=== PATIENT | male | born 1955 | race Caucasian/White ===

== ENCOUNTER 2017-09-12 10:32 | Outpatient (CLI) | payer OTHER | END 2017-09-12 10:33 | disposition home or self-care (01) | LOC: BICRAD 10:32 | PROVIDERS: ATTEND Family Medicine | DX: R05 Cough (principal); R91.8 Other nonspecific abnormal finding of lung field | CPT/HCPCS: 71046 ==

== ENCOUNTER 2017-11-22 11:59 | Outpatient (CLI) | payer OTHER | END 2017-11-22 12:00 | disposition home or self-care (01) | LOC: LABBT 11:59 | PROVIDERS: ATTEND Internal Medicine | DX: Z01.818 Encounter for other preprocedural examination (principal); R91.8 Other nonspecific abnormal finding of lung field ==

== ENCOUNTER 2017-11-23 07:00 | Day surgery (SDC) | payer OTHER ==
[2017-11-22 12:14] VITALS: BMI 22.8
[2017-11-23] MEDS ORDERED: Lidocaine 1% (PF) 30 ML VIAL ONE (07:15)
[2017-11-23] MEDS ORDERED: Benzocaine 20% Spray 60 ML CAN ONE (07:15)
--- NOTE | 2017-11-23 08:03 | HP ---
DATE OF CONSULTATION: 11/22/2017 SERVICE: Pulmonary Medicine. REFERRING PROVIDER: Stefano Snyder D.O. REASON FOR CONSULTATION: Pulmonary mass. 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 He has been having some increasing clubbing, and coughing that has come and gone. He also notes hemoptysis, which was present for about a week and a half, but then resolved. During one of these spells, he sought help from Dr. Snyder. He does not like doing a lot of studies or interventions because he does not have any good insurance. As such, everything is out of pocket. Ultimately, he was convinced to have a chest x-ray, which demonstrated an abnormality. He was prompted to do a CT scan, but put it off because he felt better in mid- September. Ultimately, he was finally convinced to undergo a CT evaluation. This demonstrated a large right upper lobe pulmonary mass. The patient is currently in his usual state of health and denies having any current fevers, chills, nausea or vomiting. He has a little bit of a cough. His weight is stable and he denies having any B symptoms like night sweats. PAST MEDICAL HISTORY: 1. Deviated septum. 2. Pulmonary mass. PAST SURGICAL HISTORY: Knee surgery, bilateral. SOCIAL HISTORY: He drinks twice per week. He has a 76-vpvw-audy history of smoking, but quit recently. He denies any street drugs. He has no exposure to chemicals, dust, asbestos, or tuberculosis outside of his work. 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 FAMILY HISTORY: Noncontributory. ALLERGIES: No drug allergies. MEDICATIONS: Ibuprofen 400 mg p.o. q.6 hours as needed. REVIEW OF SYSTEMS: General, head, ears, eyes, nose, and throat, cardiovascular , respiratory, GI, , musculoskeletal, neurologic, and skin is negative except as mentioned in the HPI. PHYSICAL EXAMINATION: VITAL SIGNS: Afebrile, pulse 87, respirations 14, saturation 98% on room air. GENERAL: The patient is awake and alert. He is in no apparent distress. HEENT: Normocephalic, atraumatic. Sclerae are white, conjunctivae pink. Oral mucosa is moist without lesions. LUNGS: Decent air entry with no prolonged expiratory phase, wheezing, rhonchi, or crackles. HEART: Normal rate, regular. ABDOMEN: Soft, nontender, nondistended. Bowel sounds are positive. MUSCULOSKELETAL: No cyanosis or clubbing. There is no pitting in the bilateral lower extremities. NEUROLOGIC: Grossly nonfocal. LABORATORY DATA: Platelets 562,000. WBC 11.0. Hemoglobin 13.7 and down trending from 16.4. Liver function studies were essentially unremarkable, except for marginally elevated alkaline phosphatase at 166. IMAGING: CT of the chest at the [facility] demonstrates a right upper lobe pulmonary mass with obliteration of the right upper lobe bronchus. There is some atelectasis in the right upper lobe, but the majority of this area looks like it is the mass. This growth appears to respect boundaries of the minor fissure, the major fissure, and the chest wall. I do not see any clear erosion into the chest structures. ASSESSMENT: 1. Pulmonary mass. 2. History of tobacco abuse. PLAN: We will proceed with bronchoscopy tomorrow morning. I will have him hold his ibuprofen. We will do it under general anesthesia. I will prepare for a brush wash, and biopsy. I will have him return to clinic Tuesday or Tuesday of next week so that we can discuss the pathology, microbiology, and plan moving forward. 60 minutes have been devoted to this patient in various activities including interacting with the patient in the clinic or coordinating care with the care team. I personally reviewed all imaging studies and laboratory data noted within this document. VINCE
[2017-11-23] MEDS ORDERED: Fentanyl 100 MCG/2 ML VIAL ONE (09:16)
[2017-11-23] MEDS ORDERED: EPINEPHrine 1 MG/ML AMP ONE (10:02)
[2017-11-23] MEDS ORDERED: PHENYLEPHRINE-NS 100 MCG/ML 10 ML SYRINGE ONE (15:19)
[2017-11-23] MEDS ORDERED: Succinylcholine Chloride 20 MG/ML 10 ml SYRINGE FS ONE (15:19)
[2017-11-23] MEDS ORDERED: Lidocaine 1% PF 5 ML VIAL ONE (15:19)
[2017-11-23] MEDS ORDERED: Dexamethasone 20 MG/5 ML VIAL ONE (15:19)
[2017-11-23] MEDS ORDERED: PROPOFOL 200 MG/20 ML VIAL ONE (15:19)
--- NOTE | 2017-11-23 18:22 | OP ---
DATE OF SERVICE: 11/23/2017 SERVICE: Pulmonary Medicine. PROCEDURE: Fiberoptic bronchoscopy with: 1. Visual airway inspection. 2. Endobronchial brush of the right upper lobe. 3. Bronchoalveolar lavage from the right upper lobe. 4. Transbronchial biopsies of the right upper lobe. PREOPERATIVE DIAGNOSIS: Pulmonary mass. POSTPROCEDURE DIAGNOSIS: Pulmonary mass. PROCEDURE PILOT: Dudley Paulino M.D. MEDICATIONS USED: For list of medications, please refer to anesthesia documentation. PREANESTHESIA ASSESSMENT: H and P had been performed. The patient's medications and allergies were reviewed. Informed consent was obtained after discussing risks, benefits, and rationale for performi ng the procedure as well as alternative options. DESCRIPTION OF PROCEDURE: A timeout was performed, identifying the correct procedure and patient wit h name and date of . A diagnostic fiberoptic bronchoscope was introduced through the 8.0 endotr acheal tube. The bronchoscope was advanced into the trachea where a tracheobronchial tree inspection was carried out with clear identification of the right middle lobe, right lower lobe, left upper lob e, lingula, and left lower lobe. The right upper lobe was completely obliterated by a fungating whit e endobronchial lesion. Whatever was behind it was creating some extrinsic compression of the right bronchus intermedius and right middle lobe. That being said, there was no other endobronchial diseas e that was identified. Anatomy was otherwise normal to the segmental level. Bronchioalveolar lavage was obtained from the right upper lobe. Endobronchial brushing and endobronchial biopsies were obta ined from the right upper lobe under direct observation. Hemostasis was verified. The bronchoscope was subsequently removed from the patient. FINDINGS: 1. White endobronchial mass was fungating from the origin of the right upper lobe with extrinsic com pression of right bronchus intermedius, and right middle lobe. 2. Secretions were minimal and nonpurulent SPECIMENS OBTAINED: Pathology on BAL, brush, and endobronchial biopsies. COMPLICATIONS: None. ESTIMATED BLOOD LOSS: 2 mL. FLUOROSCOPY TIME: None. DISPOSITION: The patient will be discharged home with post-procedure instructions. He will return t o clinic next Tuesday as previously directed.
--- NOTE | 2017-11-24 06:23 | EKG ---
Test Reason : PREOP Blood Pressure : / mmHG Vent. Rate : 080 BPM Atrial Rate : 080 BPM P-R Int : 142 ms QRS Dur : 088 ms QT Int : 368 ms P-R-T Axes : 063 065 050 degrees QTc Int : 424 ms Normal sinus rhythm Normal ECG No previous ECGs available Confirmed by EDUARD MAURO ([id number]) on 11/24/2017 6:10:48 AM Referred By: DONNA Confirmed By:EDUARD MAURO
== END 2017-11-23 12:32 | disposition home or self-care (01) ==
LOC: SDC 07:00
PROVIDERS: ATTEND Internal Medicine
PROC: 0B9C8ZX Drainage of Right Upper Lung Lobe, Via Natural or Artificial Opening Endoscopic, Diagnostic (ICD-10-PCS; principal; 2017-11-23)
PROC: 0BDC8ZX Extraction of Right Upper Lung Lobe, Via Natural or Artificial Opening Endoscopic, Diagnostic (ICD-10-PCS; principal; 2017-11-23)
DX: C34.11 Malignant neoplasm of upper lobe, right bronchus or lung (principal); J34.2 Deviated nasal septum; Z87.891 Personal history of nicotine dependence
CPT/HCPCS: 88112; 88305; 88312; 88313; 88341; 88342; 93005; 93010; J0171; J1100; J2001; J2704; J3010; J7620

== ENCOUNTER 2017-12-20 12:45 | Outpatient (CLI) | payer OTHER ==
--- NOTE | 2017-12-20 17:05 | PET ---
PET WITH CT FROM SKULL TO MID THIGH 12/20/17 INDICATION: History of lung cancer. Initial staging. RADIOPHARMACEUTICAL: 12.32 millicuries of F18 FDG IV. TECHNIQUE: PET CT images were obtained from the skull to mid thigh following radiotracer administration. The CT images were obtained for attenuation correction purposes only. No comparisons are available. FINDINGS: The biodistribution for the examination appears acceptable. HEAD AND NECK: No hypermetabolic lymphadenopathy or mass is identified within the head and neck region. CHEST: There is complete opacification of the right upper lobe. There is an 11.2 x 7.9 x 10 cm hypermetaboli c mass within the right upper lobe consolidation with a peak SUV uptake of 26 and a mean uptake of 20 .36. There is additional focus of mild hypermetabolic activity involving the anterior segment of the atelectatic right upper lobe with a peak uptake of 4.67 and 2.69 which may reflect sequela of postobs tructive pneumonia. No hypermetabolic mediastinal or axillary lymphadenopathy is evident. ABDOMEN AND PELVIS: No hypermetabolic mass or lymphadenopathy is present. There is nonspecific olivier mesentery within the central mesenteric root. There are layered gallstones within the gallbladder. There is scattered div erticula involving the colon. SKIN AND OSSEOUS STRUCTURES: No hypermetabolic skin or osseous lesion is identified. IMPRESSION: 1. Large abnormal hypermetabolic mass involving the right upper lobe suspicious for malignancy c ausing postobstructive atelectasis and/or pneumonia of the right upper lobe. Focus of hypermetabolic activity is seen within the atelectatic anterior segment of the right upper lobe may reflect postobst ructive pneumonia versus poorly seen metastatic lesion within the anterior segment of the right upper lobe. 2. No hypermetabolic lymphadenopathy seen within the mediastinum, supraclavicular or axillary re gions. 3. No evidence of hypermetabolic metastatic disease within the abdomen, pelvis, skin or osseous structures. 4. Emphysema. 5. Cholelithiasis. 6. Colonic diverticulosis. 7. Mild specific central olivier mesentery. POS: [facility]
== END 2017-12-20 12:46 | disposition home or self-care (01) ==
LOC: PET 12:45
PROVIDERS: ATTEND Internal Medicine
DX: R91.1 Solitary pulmonary nodule (principal); J95.89 Other postprocedural complications and disorders of respiratory system, not elsewhere classified; J98.11 Atelectasis; J43.9 Emphysema, unspecified
CPT/HCPCS: 78815; A9552

== ENCOUNTER → 2018-03-10 | Day surgery (SDC) | payer OTHER ==
--- NOTE | 2018-03-10 09:01 | OP ---
DATE OF PROCEDURE: 03/10/2018 SURGEO: Dr. Bucky Keita Mr. Marc is a 62-year-old gentleman of Dr. Paulino's. He was sent to the ER for a thoracentesis. PROCEDURE IN DETAIL: After informed consent from the patient, the right posterior thorax was cleaned with chlorhexidine, 1% Xylocaine infiltrated initially in the tenth intercostal space in the midscap ular area and the pleural cavity was entered with an inch and half needle, although no pleural effusi on noted. Thereafter, the 9th intercostal space was infiltrated in the midscapular, this time 20 mL of bloody effusion was removed. Additional fluid was obtained, slightly more laterally, 1% lidocaine infiltrated again in the ninth intercostal space in the mid scapular area additional 20 mL was remov ed. Thereafter, an 8-Japanese catheter was inserted and a total of 250 mL of additional fluid was skip shalini. Fluid will be sent for cytology. Fluid was clearly bloody, probably an exudate, probably secon meghna to metastatic cancer. BRIEF DISCHARGE SUMMARY: The patient tolerated the procedure well. Chest x-ray pending. His vital signs are stable. He will be discharged home to be followed by Dr. Paulino and his oncolog ist.
[2018-03-10 09:20] LABS: Pleural Fluid, Protein 3.5 g/dL
[2018-03-10 09:35] LABS: BF Color Red; Body Fluid Source THORACENTESIS FLD; Clarity Cloudy/Turbid (Clear); Tube # 1
[2018-03-10 09:36] LABS: RBC Background Count 0.001; WBC/NonHematic-Auto 6010 /cumm
[2018-03-10 09:37] LABS: RBC Count-Automated 133000 /cumm
--- NOTE | 2018-03-10 11:07 | RAD ---
CHEST ONE VIEW: HISTORY: Thoracentesis. COMPARISON: PET CT from 12/20/2017. FINDINGS: Large right layering pleural effusion. There is a large right-sided lung mass. IMPRESSION: 1. Large right pleural effusion, 2. Underlying lung mass. POS: [facility]
[2018-03-10 12:18] LABS: BF Segmented Neutrophils 31 %; Cell Count Non Hematic 35 %; Lymphocytes 33 %
== END ==
LOC: SDC 07:09
PROVIDERS: ATTEND Internal Medicine Pulmonary Disease
PROC: 0W993ZZ Drainage of Right Pleural Cavity, Percutaneous Approach (ICD-10-PCS; principal; 2018-03-10)
DX: J90 Pleural effusion, not elsewhere classified (principal)
CPT/HCPCS: 32554; 71045; 82150; 82945; 83615; 84157; 84478; 85060; 87070; 87116; 87205; 87206; 88112; 88305; 89051; J1642

== ENCOUNTER 2018-03-17 09:18 | Outpatient (CLI) | payer OTHER ==
--- NOTE | 2018-03-17 13:21 | CT ---
CT BRAIN WITH AND WITHOUT CONTRAST: HISTORY: A 62-year-old male with lung cancer. Evaluate for brain metastasis. TECHNIQUE: Precontrast scan of brain IV injection iodinated contrast media: Administered Postcontrast scan of brain FINDINGS: The ventricles are normal in size and configuration. There is no midline shift or any other mass eff ect. There is no evidence of acute intracranial hemorrhage, large cortical infarct, or extraaxial fl uid collection. The brown matter /white matter differentiation is maintained. There is no abnormal e nhancement or mass. The calvarium is intact. The tympanomastoid cavities, and the upper portions of the paranasal sinuses included in these images, are grossly clear. IMPRESSION: Normal. maria ines [] POS: [facility]
--- NOTE | 2018-03-17 14:44 | CT ---
CT THORAX WITH CONTRAST: CT ABDOMEN WITH CONTRAST: 03/17/2018 HISTORY: A 62-year-old male for lung cancer staging. ICD-10: I62.3/C34.11 Malignant plasm of upper lobe, right bronchus or lung. COMPARISON: CT chest with contrast of 11/08/2017 from [facility], and the attenuation correc tion CT for the PET scan of 12/20/2017. TECHNIQUE: IV iodinated contrast media: Isovue-370 100 mL. Single phase scan from the thoracic inlet through t he iliac wings. Coronal reconstructions. FINDINGS: Whereas previously there was total atelectasis of the right upper lobe, now there is complete opacifi cation of the entire right lung. The majority of the volume of the right upper lobe is occupied by w hat appears to be a very large mass that has heterogeneous enhancement, measuring approximately 10 x 8.5 x 12.5 cm. There are areas of low attenuation at the posterior and superior aspects of this, con sistent with necrosis. There is also another new finding of a very large number of tiny and small po ckets of gas throughout the upper portion of this lesion, especially apically, which represent cavita tions. Whereas previously the right lower lobe and right middle lobe were aerated, those segments of the joanna g are now also totally collapsed. The right middle lobe is diffusely low in attenuation, whereas the right lower lobe has moderately high attenuation, which may represent enhancement, except for a few tiny pockets of gas. There is a new small right pleural effusion that extends from the base to the a pex. The total atelectasis of the right lung results in a greater degree of elevation of the right h emidiaphragm now than before. The mass that was previously obstructing the origin of the right upper lobe bronchus has now invaded the right mainstem bronchus, up to its proximal portion, near the jamil na, but it does not quite reach the jesus. The single, round, anterior, upper mediastinal lymph nod e, located between the anterior edges of the ascending aorta and the superior vena cava, in the preva scular space, has not significantly changed in size, it was not hypermetabolic, and may be benign. T here is shift of the trachea and heart to the right due to the total right lung atelectasis. No thor acic aortic aneurysm or dissection. No cardiomegaly, pericardial effusion, or left-sided pleural eff usion. The left lung is essentially clear. there is a new finding of an approximately 1.5 x 2 x 1.5 cm soft tissue density lesion with heterogeneous attenuation, similar to that of the very large righ t lung mass described above, located in the subcarinal region, which could either represent direct ex tension of the lung cancer tumor mass or interval growth of malignant subcarinal lymph node. It cros ses the midline to the left by approximately 1 cm. No destructive osseous lesion is identified. There is at least one calcified gallstone. Liver appears normal, with no evidence of metastasis. Bi lateral kidneys, adrenals, pancreas, and spleen are normal. No evidence of definite pao hepatis, m esenteric, or retroperitoneal lymphadenopathy. Atherosclerotic plaque of the infrarenal abdominal ao rta without aneurysm. Numerous diverticula in the proximal sigmoid colon and throughout the descendi ng colon. No small bowel dilatation. No free fluid identified. The pelvis was not included on the scan. No destructive osseous lesion. IMPRESSION: 1. Right upper lobe lung cancer, which is at least TNM stage T3, N2, M0, overall stage 3A; and possi jes worse. 2. The large right upper lobe tumor mass has apparently become much larger, with extensive areas of necrosis and cavitation. It is uncertain which portions of those cavitations are due to tumor necros is versus any possible superimposed necrotizing pneumonia. Clinical correlation is recommended. 3. The tumor mass now invades almost the entire right mainstem bronchus. 4. Subcarinal malignant 2 cm mass, either malignant lymphadenopathy or direct tumor invasion. 5. Total atelectasis of the right lung. 6. Small right pleural effusion. 7. No evidence of metastatic disease within the abdominal cavity. 8. Cholelithiasis. 9. Distal colonic diverticulosis. AIDAN Daniels POS: [facility]
--- NOTE | 2018-03-17 15:52 | NM ---
NUCLEAR MEDICINE BONE SCAN WHOLE BODY: (SKELETAL SCINTIGRAPHY) Date: 03/17/18 HISTORY: 62-year-old male, staging for lung cancer (malignant neoplasm of right upper lobe or bronchus). TECHNIQUE: IV injection of [id number]: 31.3 mCi 3 hour delayed whole body skeletal scintigraphy in anterior and posterior views. FINDINGS: There are no foci of asymmetrically increased uptake that are particularly suspicious for bone metast ases. IMPRESSION: No compelling evidence of skeletal metastasis. AIDAN Daniels POS: [facility]
== END 2018-03-17 09:19 | disposition home or self-care (01) ==
LOC: CT 09:18
PROVIDERS: ATTEND Internal Medicine Medical Oncology
DX: C34.11 Malignant neoplasm of upper lobe, right bronchus or lung (principal); J98.11 Atelectasis; J90 Pleural effusion, not elsewhere classified; K80.20 Calculus of gallbladder without cholecystitis without obstruction; K57.30 Diverticulosis of large intestine without perforation or abscess without bleeding
CPT/HCPCS: 70470; 71260; 74160; 78306; A9503

== ENCOUNTER 2018-03-28 09:18 | Day surgery (SDC) | payer OTHER ==
[2018-03-28] MEDS ORDERED: diphenhydrAMINE 50 MG/ML VIAL IVP SCH (10:45)
[2018-03-28] MEDS ORDERED: PALONOSETRON HCL 0.05 MG/ML 5 ML VIAL IVP SCH (10:45)
[2018-03-28] MEDS ORDERED: Famotidine/PF 20 mg/2ml Vial SLOW IVP SCH (10:45)
[2018-03-28] MEDS ORDERED: Dexamethasone 10 MG/ML VIAL SLOW IVP SCH (10:45)
[2018-03-28] MEDS ORDERED: CARBOPLATIN IVPB SCH (11:00)
[2018-03-28] MEDS ORDERED: PACLitaxel 310 MG in Sodium Chloride 0.9% 500 ML IVPB SCH (11:00)
[2018-03-28] MEDS ORDERED: SODIUM CHLORIDE 0.9% IVPB SCH (11:00)
[2018-03-28 11:17] VITALS: BP 113/66; TEMP 97.8
== END 2018-03-28 16:15 | disposition home or self-care (01) ==
LOC: ONC/OP 09:18
PROVIDERS: ATTEND Internal Medicine Medical Oncology
DX: Z51.11 Encounter for antineoplastic chemotherapy (principal); C34.11 Malignant neoplasm of upper lobe, right bronchus or lung; J98.11 Atelectasis; J90 Pleural effusion, not elsewhere classified; Z87.891 Personal history of nicotine dependence
CPT/HCPCS: 96375; 96413; 96415; 96417; J1100; J1200; J2469; J7050; J9045; J9267; S0028

== ENCOUNTER 2018-04-05 16:42 | Inpatient (IN) | payer OTHER, SELFPAY ==
[2018-04-05 17:24] LABS: #Basophils 0.1 thou/uL (0.0-0.2); #Eosinphils 0.1 thou/uL (0.0-0.7); #Lymphocytes 0.9 thou/uL (1.20-3.40); #Monocytes 1.4 thou/uL (0.11-0.59); #Neutrophils 12.1 thou/uL (1.40-6.50); %Basophils 0.4 % (0.0-1.0); %Eosinophils 0.4 % (0.0-10.0); %Lymphocytes 6.1 % (21.0-51.0); %Monocytes 9.8 % (0.0-10.0); %Neutrophils 83.3 % (42.0-75.0); Hemoglobin 12.2 g/dL (14.0-18.0); Mean Corpuscular Volume 82.5 fL (78.0-98.0); Platelet Count 583 thou/uL (130-400); RBC Distribution Width 12.1 % (11.5-14.5); Red Blood Cell (RBC) Count 4.35 mill/uL (4.70-6.10); White Blood Cell (WBC) Count 14.5 thou/uL (4.8-10.8)
--- NOTE | 2018-04-05 17:26 | RAD ---
CHEST ONE VIEW: 04/05/18 HISTORY: Cough. Comparison radiograph 03/10/18. FINDINGS: Mild interval improvement right hemithorax opacities. Small layering pleural effusion. Left lung is r elatively clear. IMPRESSION: 1. Improving right lung pneumonia. 2. Likely underlying right sided lung mass. POS: [facility]
[2018-04-05 17:45] LABS: ALT (SGPT) 42 U/L (8-55); AST (SGOT) 18 U/L (5-34); Albumin 3.7 g/dL (3.4-4.8); Alkaline Phosphatase 216 U/L (40-150); Anion Gap 14 mmol/L (10-20); BUN (Urea Nitrogen) 14 mg/dL (8.4-25.7); Bilirubin, Total 0.6 mg/dL (0.2-1.2); Calc. Creatinine Clearance 0 mL/min (70-130); Calcium 9.2 mg/dL (7.8-10.44); Carbon Dioxide 23 mmol/L (23-31); Chloride 101 mmol/L (98-107); Estimated GFR-MDRD 73; Globulin 3.5 g/dL (2.4-3.5); Glucose 144 mg/dL (80-115); Potassium 3.9 mmol/L (3.5-5.1); Protein, Total 7.2 g/dL (5.8-8.1); Sodium 134 mmol/L (136-145)
[2018-04-05] MEDS ORDERED: Cefepime 2 GM VIAL ONE (18:51)
[2018-04-05 19:00] LABS: Bilirubin Small (Negative); Blood, Urine Negative (Negative); Clarity CLOUDY (Clear); Glucose, Urine (Dipstick) Negative (Negative); Leukocyte Negative (Negative); Nitrite Negative (Negative); Protein, Urine (Dipstick) Negative (Neg-Trace); Specific Gravity, Urine 1.023 (1.002-1.036); pH, Urine 5.5 (5.0-9.0)
[2018-04-05] MEDS ORDERED: traMADol HCl 50 MG TAB PO PRN (21:38)
[2018-04-05] MEDS ORDERED: Mag-Al 1200 mg/1200 mg/30 ML UDCUP PO PRN (21:38)
[2018-04-05] MEDS ORDERED: Lorazepam 1 MG TAB PO PRN (21:38)
[2018-04-05] MEDS ORDERED: Senokot 8.6 MG TAB PO PRN ×2 (21:38)
[2018-04-05] MEDS ORDERED: hydrALAZINE 20 MG/ML VIAL SLOW IVP PRN (21:38)
[2018-04-05] MEDS ORDERED: cloNIDine 0.1 MG TAB PO PRN (21:38)
[2018-04-05] MEDS ORDERED: Benzonatate 100 MG CAP PO PRN (21:38)
[2018-04-05] MEDS ORDERED: Calcium Carbonate 500 MG ChewTAB PO PRN (21:38)
[2018-04-05] MEDS ORDERED: Nitroglycerin 0.4 MG TAB (25 Tab Bottle) SL PRN (21:38)
[2018-04-05] MEDS ORDERED: Bisacodyl 5 MG TAB PO PRN ×2 (21:38)
[2018-04-05] MEDS ORDERED: Acetaminophen 325 MG TAB PO PRN (21:38)
[2018-04-05] MEDS ORDERED: Loratadine 10 MG TAB PO PRN (21:38)
[2018-04-05] MEDS ORDERED: Diabetic Tussin 200 MG/10 ML UDCUP PO PRN (21:38)
[2018-04-05] MEDS: Sodium Chloride 0.9% 1,000 ML IV SCH (23:32)
[2018-04-05 23:49] VITALS: BMI 22.9
--- NOTE | 2018-04-06 03:10 | HP ---
DATE OF ADMISSION: 04/05/2018 Please note that the patient was seen prior to midnight. PRIMARY CARE PHYSICIAN: Dr. Stefano Snyder. PRIMARY QA TEST LEAD: Dr. Paulino. PRIMARY ONCOLOGIST: Dr. Candelario. CHIEF COMPLAINT: Cough and fever. HISTORY OF PRESENT ILLNESS: Mr. Marc is a very pleasant 62-year-old male with known history of rig ht-sided non-small cell lung cancer who presented to the emergency room with above-mentioned complain t. History is mainly obtained by the patient himself and electronic medical records have been review ed. Mr. Marc reports that he underwent chemotherapy last week on Tuesday and , he started to castañeda ve some pain in both of his legs. He did receive some IV steroids with the chemotherapy, but he did not go home on any oral steroids. He has received some oral antibiotic by Dr. Paulino, but that was prior to him being started on the chemotherapy for similar symptoms. He started to have yellow produ ctive cough about 3-4 days ago, but he has noticed that color change to green since yesterday. He castañeda s also noticed that he sometimes coughs up blood. He started to have a fever since yesterday and thi s morning, he was 101 degrees at home. He has generalized body aches, but the pain is worse in his l egs and he reports that most likely it is coming from his hips because he has been having some diffic ulty walking. Other than that, he denies any abdominal pain, nausea, vomiting, diarrhea. He denies any dysuria, frequency or urgency. He denies any chest pain, orthopnea or PND. Upon presentation to the emergency room, he was hemodynamically stable with a blood pressure of 99/56 , oxygen saturation 95% on room air. He underwent chest x-ray which finds which showed stable findin gs of right-sided pleural effusion and a big mass on the right side which is the known cancer. He wa s given vancomycin and cefepime as well as nebulizer and IV fluids empirically in the ER. The case w as discussed with telegraph office telephone clerk oncologist, Dr. Garcia and he is now being admitted with a presumptive valentina gnosis of pneumonia and sepsis. The patient was last admitted to the hospital on 03/10/2018 under Pulmonary Medicine Services and und erwent a thoracentesis. The pathology for that showed no malignant cells. PAST MEDICAL HISTORY: Nonsmall cell carcinoma of the right lung, status post 1/4 rounds of chemother apy on 03/28/2018. PAST SURGICAL HISTORY: 1. Bilateral arthroscopic knee surgery. 2. Tonsillectomy. PSYCHIATRIC HISTORY: Depression. SOCIAL HISTORY: He has a 10-jpoq-elti history of smoking, but quit within the last 5 months or so. He lives with his girlfriend, has no history of drug or alcohol abuse. CURRENT MEDICATIONS: Tramadol as needed, Zofran as needed. ALLERGIES: No known medication allergies. FAMILY HISTORY: No family history of stroke or cancer. REVIEW OF SYSTEMS: A 12-point review of systems is done. It is negative except for those mentioned in the history and physical. LABORATORY DATA: CBC shows WBCs at 14.5 with neutrophils 83%, hemoglobin 12.2. Serum chemistries: Sodium 134, glucose 144. Lactic acid 1.3, alkaline phosphatase 216. Urinalysis shows small bilirubi n and ketones. Chest x-ray by my review shows extensive atelectasis and opacification of the entire right lung due to underlying right lung mass. Radiologist has compared it to the chest x-ray done on 03/11/2018 and reports that the pneumonia is resolving. A chest CT was done on 03/17/2018 which vee wed extensive opacification of the right lung, and large right upper lobe mass with areas of necrosis and cavitation and invasion of the right main stem bronchus as well. PHYSICAL EXAMINATION: VITAL SIGNS: Most recent vital signs, temperature 98.5, heart rate 89, respirations 16, saturating 1 00% on room air, blood pressure 127/53. GENERAL: No acute distress, awake, alert, oriented x3. The patient is coughing throughout the inter view. Family is at bedside. HEENT: Mucous membrane is moist. No oropharyngeal exudate or erythema. Head is normocephalic, atra umatic. Pupils equal, reactive to light and accommodation. Extraocular movements intact. NECK: Supple without any lymphadenopathy, JVD or bruit. CHEST: Clear to auscultation bilaterally with some decreased sounds at right base without any wheezi ng or crackles. CARDIOVASCULAR: Rate and rhythm is regular without any murmur, rubs or gallops. ABDOMEN: Soft, nontender, nondistended with positive bowel sounds. EXTREMITIES: Free of any cyanosis, clubbing, or edema, no calf tenderness. No joint swelling, eryth ratna or effusions noticed. NEUROLOGIC: Nonfocal. SKIN: Free of any rashes or bruises. I feel warm and dry to touch. PSYCHIATRIC: Normal affect. IMPRESSION AND PLAN: 1. Pneumonia. The patient most likely has post-obstructive pneumonia. Given his immunocompromised state, he will be treated with broad spectrum IV antibiotic to cover Pseudomonas and MRSA. He will b e continued on cefepime and vancomycin for now and we will provide oxygen as needed and nebulizers. We will add Mucinex as well as incentive spirometry. We will request consultation with his Pulmonary Medicine physician, Dr. Paulino for further recommendations. 2. Sepsis, likely secondary to #1. The patient has leukocytosis with left shift as well as evidence of pneumonia. IV fluids and IV antibiotics have been ordered. We will follow the results of the bl ood culture sent in the emergency room and monitor for any electrolyte abnormalities. 3. Lower extremity pain bilaterally. The physical exam is not consistent with possibility of DVT; h owever, given the fact that he has a carcinoma, we will check Doppler ultrasound bilaterally to rule out the same. 4. Nonsmall cell carcinoma of the lung. The patient will continue treatment per Oncology services. We will request the input by the patient remains in-house as well. 5. Deep venous thrombosis and gastrointestinal prophylaxis. 6. CODE STATUS: FULL CODE. Discussed with the patient and his daughter present in the room. DISPOSITION: Mr. Marc is currently being admitted for pneumonia, likely post-obstructive in nature and sepsis. Estimated length of stay at this time is at least 2-3 midnights. Further management wi ll depend upon his clinical course.
[2018-04-06 04:14] LABS: #Eosinphils 0.3 thou/uL (0.0-0.7); #Lymphocytes 1.1 thou/uL (1.20-3.40); #Monocytes 1.3 thou/uL (0.11-0.59); #Neutrophils 8.3 thou/uL (1.40-6.50); %Basophils 0.4 % (0.0-1.0); %Eosinophils 2.3 % (0.0-10.0); %Lymphocytes 9.7 % (21.0-51.0); %Monocytes 11.6 % (0.0-10.0); Hemoglobin 10.6 g/dL (14.0-18.0); Mean Corpuscular HGB CONC 33.5 g/dL (32.0-36.0); Mean Corpuscular Volume 83.4 fL (78.0-98.0); Mean Platelet Volume 6.2 fL (7.4-10.4); Platelet Count 525 thou/uL (130-400); RBC Distribution Width 12.2 % (11.5-14.5); Red Blood Cell (RBC) Count 3.79 mill/uL (4.70-6.10); White Blood Cell (WBC) Count 10.9 thou/uL (4.8-10.8)
[2018-04-06 04:42] LABS: Anion Gap 11 mmol/L (10-20); BUN (Urea Nitrogen) 11 mg/dL (8.4-25.7); Calc. Creatinine Clearance 94 mL/min (70-130); Calcium 8.5 mg/dL (7.8-10.44); Carbon Dioxide 23 mmol/L (23-31); Chloride 107 mmol/L (98-107); Estimated GFR-MDRD Greater than 90; Glucose 137 mg/dL (80-115); Potassium 3.5 mmol/L (3.5-5.1); Sodium 137 mmol/L (136-145)
[2018-04-06] MEDS: Cefepime 2 GM in Sodium Chloride 0.9% 100 ML IVPB SCH ×3 (05:00→20:01)
[2018-04-06] MEDS: Ondansetron HCl/PF 4 MG/2 ML Vial IVP PRN ×2 (06:45→14:41)
[2018-04-06] MEDS: HYDROcodone/Acetaminophen 5/325 mg Tablet PO PRN ×4 (06:48→23:56)
[2018-04-06] MEDS ORDERED: Vancomycin HCl 1 GM in Premix Bag 1 BAG IVPB SCH (09:00)
[2018-04-06] MEDS: Vancomycin HCl 1.25 GM in Sodium Chloride 0.9% 250 ML 250 ML IVPB SCH ×2 (09:13→20:05)
[2018-04-06] MEDS: Enoxaparin Sodium 40 MG/0.4 ML SYRINGE SC SCH (09:14)
[2018-04-06] MEDS: Famotidine 20 MG TAB PO SCH ×2 (09:15→20:01)
[2018-04-06] MEDS: guaiFENesin ER 600 MG TAB PO SCH ×2 (09:15→20:01)
[2018-04-06] MEDS: Sodium Chloride 0.9% 1,000 ML IV SCH (11:18)
--- NOTE | 2018-04-06 11:30 | ULT ---
BILATERAL LOWER EXTREMITY VENOUS DOPPLER ULTRASOUND: Date: 04/06/18 HISTORY: Bilateral leg pain. TECHNIQUE: [place] scale ultrasound with color flow and spectral Doppler imaging of the deep venous systems of the lower extremities was performed bilaterally. FINDINGS: There is good flow, compression, and augmentation noted in the common femoral, femoral, deep femoral, popliteal, posterior tibial, and greater saphenous veins on either side. IMPRESSION: No evidence of deep venous thrombosis in either lower extremity. POS: [facility]
--- NOTE | 2018-04-06 12:06 | CON ---
DATE OF CONSULTATION: 04/06/2018 REASON FOR CONSULTATION: Lung cancer. HISTORY OF PRESENT ILLNESS: Mr. 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 He began feeling b ad in 02/2017. A CT scan in 10/2017 showed atelectasis of the right upper lobe. He was evaluated by Dr. Paulino and a bronchoscopy with brushings and biopsies were interpreted as a non-small cell lung cancer. The PET scan in December showed an 11.2 x 7.9 x 10 cm hypermetabolic mass. The patient was seen by a [place] physician who recommended to complete staging by [facility]astinoscopy. [facility], so he returned to this area for further evaluation. The tate ent had a pleural effusion in February and had postobstructive pneumonia. He began treatment with carbopl atin and Taxol on 03/28/2018. He began to feel that approximately 3 days later. Yesterday he had a poor appetite, general malaise and a fever of 101. He presents to the emergency room for evaluation. Chest x-ray showed improving right lung pneumonia. His CBC showed a white count of 14.5 and hemogl obin of 12.2, platelet count 593,000. He was admitted for postobstructive pneumonia and started on I V antibiotics and IV fluids. He has been complaining of bilateral lower extremity pain. A venogram was negative for DVT. Currently complains of headache and lower extremity, denies any shortness of b reath or chest pain, abdominal discomfort. He had diarrhea last night with a small amount of bright red blood in his stool, none since. PAST MEDICAL HISTORY: 1. Stage IV non-small cell lung cancer, squamous cell type. 2. Postobstructive pneumonia. 3. Tobacco abuse. PAST SURGICAL HISTORY: Meniscus repair of his knees. ALLERGIES: No known drug allergies. HOME MEDICATIONS: 1. Hemp oil. 2. Ibuprofen p.r.n. 3. Zofran p.r.n. 4. Tramadol 50 mg p.r.n. FAMILY HISTORY: Noncontributory. SOCIAL HISTORY: , lives with his girlfriend. He has 2 grown children and [id number] histor y of smoking. Social drinker. No illicit drug use. REVIEW OF SYSTEMS: CONSTITUTIONAL: Positive for fever, chills, no night sweats or weight loss. EYES: No blurred or double vision. ENT: No pain, hoarseness, sore throat, or dysphagia. CARDIOVASCULAR: No chest pain, palpitations or syncope. RESPIRATORY: Positive shortness of breath, dyspnea on exertion and cough. GASTROINTESTINAL: Positive for nausea and diarrhea. No abdominal pain. GENITOURINARY: No dysuria or hematuria. MUSCULOSKELETAL: Positive for joint and back pain. SKIN: No rash or pruritus. HEMATOLOGICAL: Positive for bleeding. NEUROLOGIC: Positive for weakness and headache. No numbness, tingling or seizure activity. PSYCHIATRIC: No anxiety or depression. PHYSICAL EXAMINATION: VITAL SIGNS: Temperature 98.4, pulse 94, respiratory rate 14, BP is 109/68. He is 96% on room air. GENERAL: Well-developed, well-nourished male in no acute distress. HEENT: Normocephalic, atraumatic. Pupils equal and reactive to light. NECK: Supple. HEART: Regular rate and rhythm. LUNGS: Clear. ABDOMEN: Soft, nontender, bowel sounds are positive. EXTREMITIES: He has got clubbing in his bilateral hands. No edema. SKIN: No rash. HEMATOLOGIC: No petechia or purpura. NEUROLOGICAL: Nonfocal. PSYCHIATRIC: The patient is alert and oriented and appropriate. PERTINENT LABORATORY AND X-RAYS: Current WBC is 10.9, hemoglobin 10.6, hematocrit 31.6, platelet cou nt 525,000, 76% neutrophils, 10% lymphocytes. Sodium is 137, potassium 3.5, chloride 107, CO2 is 23, BUN is 11, creatinine 0.77, calcium is 8.5. Lactic acid is 1.3, total bilirubin is 0.6, AST is 18, ALT is 42, alkaline phosphatase is 216. Serum total protein 7.2, albumin 3.7, globulin 3.5. Urine w as negative for bacteria. Radiology per HPI. IMPRESSION: 1. Stage IV lung cancer, status post cycle 1 of chemotherapy. 2. Fever. 3. Postobstructive pneumonia. DISCUSSION: The patient is on IV antibiotics. Dr. 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 The patient's next chemotherapy is not due until 04/25/2018, his diarrhea castañeda s resolved at this time. Would continue intravenous fluids for now on antibiotics per Dr. Paulino's recommendations. We will follow his hospital course remotely. Thank you for the consult.
--- NOTE | 2018-04-06 12:45 | PDOC.PN ---
- Subjective Encounter Start Date: 04/06/18 Encounter Start Time: 11:15 Subjective: feels better, no fever or sob -: son and daughter at bedside - Objective Resuscitation Status: Resuscitation Status FULL:Full Resuscitation MAR Reviewed: Yes Vital Signs & Weight: Vital Signs (12 hours) Temp Pulse Resp BP BP Pulse Ox 04/06/18 11:24 98.4 F 94 14 109/68 96 04/06/18 08:13 98.2 F 99 16 113/62 94 L 04/06/18 08:00 98.4 F 94 14 96 04/06/18 06:28 75 14 93 L 04/06/18 04:44 98.4 F 107 H 18 111/61 93 L Weight Weight 151 lb 3 oz I&O: 04/05/18 04/06/18 04/07/18 06:59 06:59 06:59 Intake Total 549 180 Balance 549 180 Result Diagrams: 04/06/18 03:39 04/06/18 03:39 Phys Exam - Physical Examination HEENT: PERRLA, sclera anicteric Neck: no JVD, supple Respiratory: no wheezing decreased air entry right hemithorax Cardiovascular: RRR, no significant murmur Gastrointestinal: soft, non-tender, positive bowel sounds Musculoskeletal: no edema, pulses present Neurological: non-focal, moves all 4 limbs Psychiatric: normal affect, A&O x 3 Dx/Plan (1) Non-small cell cancer of right lung Code(s): C34.91 - MALIGNANT NEOPLASM OF UNSP PART OF RIGHT BRONCHUS OR LUNG Status: Chronic (2) Pleural effusion Code(s): J90 - PLEURAL EFFUSION, NOT ELSEWHERE CLASSIFIED Status: Chronic (3) PNA (pneumonia) Code(s): J18.9 - PNEUMONIA, UNSPECIFIED ORGANISM Status: Suspected Qualifiers: Pneumonia type: due to unspecified organism Laterality: right - Plan is on cefepime and vanc -: iv hydration -: may dc antibiotics if ok with Pulm -: pt wants to try different chemo (currently on ?carboplatin) -: poor prognosis * . Review of Systems - Medications/Allergies Allergies/Adverse Reactions: Allergies Allergy/AdvReac Type Severity Reaction Status Date / Time No Known Allergies Allergy Unverified 11/22/17 12:14 Medications: Current Medications Acetaminophen (Tylenol) 650 mg PO Q4H PRN PRN Reason: Headache/Fever or Pain Hydrocodone Bitart/Acetaminophen ([place] 5/325) 1 tab PO Q4H PRN PRN Reason: Moderate Pain (4-6) Hydrocodone Bitart/Acetaminophen ([place] 5/325) 2 tab PO Q4H PRN PRN Reason: Severe Pain (7-10) Last Admin: 04/06/18 11:16 Dose: 2 tab Al Hydroxide/Mg Hydroxide (Maalox) 30 ml PO Q6H PRN PRN Reason: Heartburn or Indigestion Albuterol/Ipratropium (Duoneb) 3 ml NEB Q2H PRN PRN Reason: SOB &/or Wheezing Albuterol/Ipratropium (Duoneb) 3 ml NEB [id number] [facility] Last Admin: 04/06/18 12:41 Dose: 3 ml Benzonatate (Tessalon) 100 mg PO Q4H PRN PRN Reason: Cough Last Admin: 04/05/18 23:36 Dose: 100 mg Bisacodyl (Dulcolax) 10 mg PO DAILYPRN PRN PRN Reason: Constipation Calcium Carbonate (Tums) 1,000 mg PO Q4H PRN PRN Reason: Heartburn or Indigestion Clonidine (Catapres) 0.1 mg PO Q4H PRN PRN Reason: Systolic BP > 160 Enoxaparin Sodium (Lovenox) 40 mg SC 0900 [facility] Last Admin: 04/06/18 09:14 Dose: 40 mg Famotidine (Pepcid) 20 mg PO BID [facility] Last Admin: 04/06/18 09:15 Dose: 20 mg Guaifenesin (Robitussin Sf) 200 mg PO Q4H PRN PRN Reason: Cough Last Admin: 04/06/18 00:55 Dose: 200 mg Guaifenesin (Mucinex) 1,200 mg PO Q12HR [facility] Last Admin: 04/06/18 09:15 Dose: 1,200 mg Hydralazine HCl (Apresoline) 10 mg SLOW IVP Q4H PRN PRN Reason: Systolic BP > 170 Cefepime HCl 2 gm/ Sodium (Chloride) 100 mls @ 200 mls/hr IVPB 0400,1200,2000 [facility] Last Admin: 04/06/18 05:00 Dose: 100 mls Sodium Chloride (Normal Saline 0.9%) 1,000 mls @ 75 mls/hr IV .[id number] [facility] Last Admin: 04/06/18 11:18 Dose: Not Given Vancomycin HCl 1.25 gm/ Sodium (Chloride) 250 mls @ 166.667 mls/hr IVPB Q12HR [facility] Last Admin: 04/06/18 09:13 Dose: 250 mls Loratadine (Claritin) 10 mg PO DAILYPRN PRN PRN Reason: Sinus Symptoms Lorazepam (Ativan) 1 mg PO Q4H PRN PRN Reason: Anxiety/Agitation Last Admin: 04/05/18 23:36 Dose: 1 mg Miscellaneous Medication (Pharmacy To Dose) 0 each IVPB PRN PRN PRN Reason: VANC Pharmacy to Dose Nitroglycerin (Nitrostat) 0.4 mg SL Q5MIN PRN PRN Reason: Chest Pain Ondansetron HCl (Zofran) 4 mg IVP Q6H PRN PRN Reason: Nausea/Vomiting Last Admin: 04/06/18 06:45 Dose: 4 mg Senna (Senokot) 2 tab PO HSPRN PRN PRN Reason: Constipation Tramadol HCl (Ultram) 50 mg PO Q4H PRN PRN Reason: Moderate Pain (4-6)
[2018-04-06] MEDS ORDERED: Potassium Chloride 40 MEQ in Sodium Chloride 0.9% 250 ML 250 ML IVPB SCH (16:45)
[2018-04-06] MEDS: 1/2 NS w/KCL 20 mEq 1,000 ML IV SCH (18:59)
--- NOTE | 2018-04-06 20:13 | CON ---
DATE OF CONSULTATION: 04/06/2018 SERVICE: Pulmonary Medicine. REASON FOR CONSULTATION: Pneumonia. HISTORY OF PRESENT ILLNESS: The patient is a 62-year-old white male who is well known to me. He has right upper lobe lung cancer. He just got his first round of chemotherapy. Shortly after that, he developed a fever of 103, myalgia, and severe malaise. He thought it was going to pass, but over a 2 4-hour period of observation at home, he clearly was getting worse. As such, his brought him to the emergency department. He was given some antibiotics and some fluids because he was dehydrated a ssociated with severe nausea and diarrhea. This morning, he feels absolutely fantastic. He has been out of bed and was able to get into a bedside chair. His strength is coming back to him. He contin ues to have an aversion to food with no appetite. Otherwise, he feels drastically better. PAST MEDICAL HISTORY: Nonsmall cell lung cancer, status post first round of chemotherapy. PAST SURGICAL HISTORY: 1. Arthroscopy of the knee, bilateral. 2. Tonsillectomy. SOCIAL HISTORY: He has a [id number] history of smoking, but quit roughly 5 months ago. He has no exposure to chemicals, dust asbestos or tuberculosis, otherwise. He does not have any history of alc ohol, or illicit drug use. FAMILY HISTORY: Noncontributory. ALLERGIES: No known drug allergies. MEDICATIONS: List of his inpatient medications was reviewed. No specific updates were made at this time. REVIEW OF SYSTEMS: General, head, ears, eyes, nose, throat, cardiovascular, respiratory, GI, , mus culoskeletal, neurologic and skin is negative except as mentioned in the HPI. PHYSICAL EXAMINATION: VITAL SIGNS: Afebrile, pulse 94, blood pressure 109/68, respirations 14, saturation 96% on room air. GENERAL: The patient is awake and alert, no apparent distress. HEENT: Normocephalic, atraumatic. Sclerae are white, conjunctivae pink. Oral and nasal mucosa is m oist without lesions. LUNGS: There is decent air entry bilaterally today. Rhonchi are present on the right. Deep breathi ng elicits cough. There is good air entry and no crackles. HEART: Normal rate, regular. ABDOMEN: Soft, nontender, nondistended. Bowel sounds are positive. MUSCULOSKELETAL: No cyanosis or clubbing. There is no pitting in the bilateral lower extremities. NEUROLOGIC: Grossly nonfocal. LABORATORY DATA: WBC 10.9, hemoglobin 10.6, platelets 525,000. Creatinine 1.03, has improved to 0.7 7. Basic metabolic profile, liver function studies are essentially otherwise unremarkable except for an alkaline phosphatase slightly elevated at 216. CK is low. Urinalysis is unremarkable. Blood cu ltures growing coag-negative Staph in 1 out of 2. IMAGIN. Ultrasound of bilateral lower extremities demonstrates no evidence of DVT. 2. Chest x-ray, there has been interval drastic improvement in aeration of the right lung. That ramya amy said, large mass and/or infiltrate is still present. ASSESSMENT: 1. Acute hypoxic respiratory failure, resolved. 2. Sepsis without end-organ damage. 3. Healthcare-associated pneumonia, likely secondary to postobstructive lesion. 4. Dehydration associated with nausea, vomiting, and diarrhea. PLAN: We will continue to provide the patient with a little bit of IV hydration through the night. Tomorrow, if he continues to do very well and he does not have any temperatures, he can be considered for transition over to p.o. Levaquin or p.o. Augmentin. He will need a 2-week course of antibiotics because he likely has a postobstructive component. I am very reassured to see how much improved aer ation he has had with one round of chemotherapy. At some point in the future, if we can prove that h is mediastinal lymph nodes are not involved, he may be a surgical candidate. Previously, it was not an option because of technical difficulties, not because of true stage.
[2018-04-07] MEDS: Cefepime 2 GM in Sodium Chloride 0.9% 100 ML IVPB SCH ×2 (04:21→12:52)
[2018-04-07] MEDS: HYDROcodone/Acetaminophen 5/325 mg Tablet PO PRN ×4 (04:21→18:18)
[2018-04-07] MEDS: 1/2 NS w/KCL 20 mEq 1,000 ML IV SCH ×2 (04:22→14:17)
[2018-04-07 08:07] VITALS: BP 108/67; TEMP 97.7
[2018-04-07] MEDS: Ondansetron HCl/PF 4 MG/2 ML Vial IVP PRN ×2 (08:16→15:33)
[2018-04-07] MEDS: Enoxaparin Sodium 40 MG/0.4 ML SYRINGE SC SCH (08:16)
[2018-04-07] MEDS: guaiFENesin ER 600 MG TAB PO SCH (08:16)
[2018-04-07] MEDS: Famotidine 20 MG TAB PO SCH (08:16)
[2018-04-07] MEDS: Vancomycin HCl 1.25 GM in Sodium Chloride 0.9% 250 ML 250 ML IVPB SCH (08:17)
--- NOTE | 2018-04-07 11:21 | PDOC.PN ---
- Subjective Encounter Start Date: 04/07/18 Encounter Start Time: 08:50 Subjective: feels better, is eating better now - Objective Resuscitation Status: Resuscitation Status FULL:Full Resuscitation MAR Reviewed: Yes Vital Signs & Weight: Vital Signs (12 hours) Temp Pulse Resp BP Pulse Ox 04/07/18 08:02 97.7 F 105 H 16 108/67 96 04/07/18 08:00 97.7 F 105 H 16 96 04/07/18 06:33 90 L 04/07/18 06:32 96 12 04/06/18 23:31 108 H 16 Weight Weight 151 lb 3 oz I&O: 04/06/18 04/07/18 04/08/18 06:59 06:59 06:59 Intake Total 549 2190 180 Balance 549 2190 180 Result Diagrams: 04/06/18 03:39 04/06/18 03:39 Phys Exam - Physical Examination HEENT: PERRLA, sclera anicteric Neck: no JVD, supple Respiratory: no wheezing rhonchi++ Cardiovascular: RRR, no significant murmur Gastrointestinal: soft, non-tender, positive bowel sounds Musculoskeletal: no edema, pulses present clubbing+++ Neurological: non-focal, moves all 4 limbs Psychiatric: normal affect, A&O x 3 Dx/Plan (1) PNA (pneumonia) Code(s): J18.9 - PNEUMONIA, UNSPECIFIED ORGANISM Status: Acute Qualifiers: Pneumonia type: due to unspecified organism Laterality: right (2) Non-small cell cancer of right lung Code(s): C34.91 - MALIGNANT NEOPLASM OF UNSP PART OF RIGHT BRONCHUS OR LUNG Status: Chronic (3) Pleural effusion Code(s): J90 - PLEURAL EFFUSION, NOT ELSEWHERE CLASSIFIED Status: Chronic - Plan is on cefepime and vanc for post obstr pna with lung cancer -: iv hydration -: dc plan per pulm advice -: coag -ve staph in blood might be contaminant * . Review of Systems - Medications/Allergies Allergies/Adverse Reactions: Allergies Allergy/AdvReac Type Severity Reaction Status Date / Time No Known Allergies Allergy Unverified 11/22/17 12:14 Medications: Current Medications Acetaminophen (Tylenol) 650 mg PO Q4H PRN PRN Reason: Headache/Fever or Pain Hydrocodone Bitart/Acetaminophen ([place] 5/325) 1 tab PO Q4H PRN PRN Reason: Moderate Pain (4-6) Last Admin: 04/07/18 08:29 Dose: 1 tab Hydrocodone Bitart/Acetaminophen ([place] 5/325) 2 tab PO Q4H PRN PRN Reason: Severe Pain (7-10) Last Admin: 04/07/18 04:21 Dose: 2 tab Al Hydroxide/Mg Hydroxide (Maalox) 30 ml PO Q6H PRN PRN Reason: Heartburn or Indigestion Albuterol/Ipratropium (Duoneb) 3 ml NEB Q2H PRN PRN Reason: SOB &/or Wheezing Albuterol/Ipratropium (Duoneb) 3 ml NEB [id number] Last Admin: 04/07/18 06:32 Dose: 3 ml Bisacodyl (Dulcolax) 10 mg PO DAILYPRN PRN PRN Reason: Constipation Calcium Carbonate (Tums) 1,000 mg PO Q4H PRN PRN Reason: Heartburn or Indigestion Clonidine (Catapres) 0.1 mg PO Q4H PRN PRN Reason: Systolic BP > 160 Enoxaparin Sodium (Lovenox) 40 mg SC 0900 [facility] Last Admin: 04/07/18 08:16 Dose: 40 mg Famotidine (Pepcid) 20 mg PO BID [facility] Last Admin: 04/07/18 08:16 Dose: 20 mg Guaifenesin (Robitussin Sf) 200 mg PO Q4H PRN PRN Reason: Cough Last Admin: 04/06/18 00:55 Dose: 200 mg Guaifenesin (Mucinex) 1,200 mg PO Q12HR [facility] Last Admin: 04/07/18 08:16 Dose: 1,200 mg Hydralazine HCl (Apresoline) 10 mg SLOW IVP Q4H PRN PRN Reason: Systolic BP > 170 Cefepime HCl 2 gm/ Sodium (Chloride) 100 mls @ 200 mls/hr IVPB 0400,1200,2000 [facility] Last Admin: 04/07/18 04:21 Dose: 100 mls Vancomycin HCl 1.25 gm/ Sodium (Chloride) 250 mls @ 166.667 mls/hr IVPB Q12HR [facility] Last Admin: 04/07/18 08:17 Dose: 250 mls Potassium Chloride/Sodium Chloride (1/2 Ns W/Kcl 20 Meq) 1,000 mls @ 100 mls/ hr IV .Q10H [facility] Last Admin: 04/07/18 04:22 Dose: 1,000 mls Loratadine (Claritin) 10 mg PO DAILYPRN PRN PRN Reason: Sinus Symptoms Lorazepam (Ativan) 1 mg PO Q4H PRN PRN Reason: Anxiety/Agitation Last Admin: 04/05/18 23:36 Dose: 1 mg Miscellaneous Medication (Pharmacy To Dose) 0 each IVPB PRN PRN PRN Reason: VANC Pharmacy to Dose Nitroglycerin (Nitrostat) 0.4 mg SL Q5MIN PRN PRN Reason: Chest Pain Ondansetron HCl (Zofran) 4 mg IVP Q6H PRN PRN Reason: Nausea/Vomiting Last Admin: 04/07/18 08:16 Dose: 4 mg Senna (Senokot) 2 tab PO HSPRN PRN PRN Reason: Constipation Tramadol HCl (Ultram) 50 mg PO Q4H PRN PRN Reason: Moderate Pain (4-6)
--- NOTE | 2018-04-07 17:08 | PRG ---
DATE OF SERVICE: 04/07/2018 SERVICE: Pulmonary Medicine. INTERVAL HISTORY: The patient is doing fine from a respiratory standpoint. He actually feelsback to baseline. Denies any shortness of breath, fevers, chills, nausea or vomiting. He did have a vomiti ng episode this morning, but since then, he has been able to keep down significant amounts of food. He believes that round 1 of the chemotherapy is now behind him and he is on them in. Otherwise, ther e has been no interval change to his condition. PHYSICAL EXAMINATION: VITAL SIGNS: Afebrile, pulse 86, blood pressure 108/67, respirations 16, saturation 96% on room air. GENERAL: The patient is awake, alert, in no apparent distress. LUNGS: Excellent air entry. There is no prolonged expiratory phase. There are some rhonchi in the right upper lobe. Otherwise, there is no wheezing or crackles present. HEART: Normal rate, regular. ABDOMEN: Soft, nontender, nondistended. Bowel sounds are positive. MUSCULOSKELETAL: No cyanosis or clubbing. No pitting in the bilateral lower extremities. NEUROLOGIC: Grossly nonfocal. ASSESSMENT: 1. Acute hypoxic respiratory failure, resolved. 2. Sepsis without end organ damage. 3. Healthcare-associated pneumonia, secondary to postobstructive lesion. 4. Dehydration, associated with nausea, vomiting, diarrhea, chemotherapy induced. DISCUSSION AND PLAN: The patient is doing fine from a respiratory standpoint. Also, his nausea is u nder better control with medication. He is requesting discharge from the hospital. He will need to go home on a 2-week course of Augmentin. Pulmonary Critical Care will continue to follow along if th e patient remains in house, but from my perspective, he is stable for transition home.
[2018-04-07] MEDS ORDERED: Amoxicillin/Potassium Clav 875 MG TAB PO SCH (21:00)
== END 2018-04-07 18:50 | disposition home or self-care (01) | DRG 871 ==
LOC: ERS 16:42 → T4-B 23:21
PROVIDERS: ADMIT Family Medicine; ATTEND Family Medicine
DX: A41.9 Sepsis, unspecified organism (principal); J18.9 Pneumonia, unspecified organism; J96.00 Acute respiratory failure, unspecified whether with hypoxia or hypercapnia; C34.11 Malignant neoplasm of upper lobe, right bronchus or lung; J90 Pleural effusion, not elsewhere classified; F32.9 Major depressive disorder, single episode, unspecified; M79.605 Pain in left leg; M79.604 Pain in right leg; E86.0 Dehydration; F17.210 Nicotine dependence, cigarettes, uncomplicated
CPT/HCPCS: 36415; 71045; 80048; 80053; 81003; 82550; 83605; 85025; 87040; 87149; 93970; 94640; 96360; 96361; 96365; 96367; 96375; G8978-GP-CI; G8979-GP-CI; G8980-GP-CI; G8987-GO-CI; G8988-GO-CI; G8989-GO-CI; J0692; J1650; J2270; J2405; J3370; J3480; J7050; J7620

== ENCOUNTER 2018-04-26 09:36 | Day surgery (SDC) | payer OTHER, SELFPAY ==
[2018-04-26] MEDS ORDERED: Dexamethasone 20 MG, Admixture Fee 1 EACH in Sodium Chloride 0.9% 50 ML IVPB SCH (10:00)
[2018-04-26] MEDS ORDERED: CARBOPLATIN IVPB SCH (10:00)
[2018-04-26] MEDS ORDERED: SODIUM CHLORIDE 0.9% IVPB SCH (10:00)
[2018-04-26] MEDS ORDERED: diphenhydrAMINE 50 MG, Admixture Fee 1 EACH in Sodium Chloride 0.9% 50 ML IVPB SCH (10:00)
[2018-04-26] MEDS ORDERED: Famotidine/PF 20 MG, Admixture Fee 1 EACH in Sodium Chloride 0.9% 50 ML IVPB SCH (10:00)
[2018-04-26] MEDS ORDERED: PACLitaxel 310 MG in Sodium Chloride 0.9% 500 ML IVPB SCH (10:00)
[2018-04-26] MEDS ORDERED: PALONOSETRON HCL 0.05 MG/ML 5 ML VIAL IVP SCH (10:00)
[2018-04-26] MEDS ORDERED: Pembrolizumab 200 MG in Sodium Chloride 0.9% 250 ML 250 ML IV SCH (10:00)
[2018-04-26 10:35] VITALS: BP 118/67; TEMP 97.5
[2018-04-26] MEDS ORDERED: Acetaminophen 500 MG TAB PO SCH (14:45)
== END 2018-04-26 18:33 | disposition home or self-care (01) ==
LOC: ONC/OP 09:36
PROVIDERS: ATTEND Internal Medicine Medical Oncology
DX: Z51.11 Encounter for antineoplastic chemotherapy (principal); C34.11 Malignant neoplasm of upper lobe, right bronchus or lung
CPT/HCPCS: 96375; 96413; 96415; 96417; 99212; G0463; J1100; J1200; J2469; J7050; J9045; J9267; J9271; S0028

== ENCOUNTER 2018-05-16 10:49 | Day surgery (SDC) | payer OTHER ==
[2018-05-16] MEDS ORDERED: Dexamethasone 20 MG in Sodium Chloride 0.9% 50 ML IVPB SCH (11:00)
[2018-05-16] MEDS ORDERED: PALONOSETRON HCL 0.05 MG/ML 5 ML VIAL IVP SCH (11:00)
[2018-05-16] MEDS ORDERED: CARBOPLATIN IVPB SCH (11:15)
[2018-05-16] MEDS ORDERED: Pembrolizumab 200 MG in Sodium Chloride 0.9% 250 ML 250 ML IV SCH (11:15)
[2018-05-16] MEDS ORDERED: SODIUM CHLORIDE 0.9% IVPB SCH (11:15)
[2018-05-16] MEDS ORDERED: Famotidine/PF 20 mg/2ml Vial SLOW IVP SCH (11:15)
[2018-05-16] MEDS ORDERED: PACLitaxel 310 MG in Sodium Chloride 0.9% 500 ML IVPB SCH (11:15)
[2018-05-16] MEDS ORDERED: diphenhydrAMINE 50 MG/ML VIAL IVP SCH (11:15)
[2018-05-16 11:20] VITALS: BP 107/59; TEMP 97.9
[2018-05-16] MEDS ORDERED: diphenhydrAMINE 50 MG in Sodium Chloride 0.9% 50 ML IVPB SCH (11:30)
[2018-05-16] MEDS ORDERED: Dexamethasone Sod Phosphate 20 MG in Sodium Chloride 0.9% 50 ML IVPB SCH (11:30)
[2018-05-16] MEDS ORDERED: Palonosetron HCl 0.25 MG in Sodium Chloride 0.9% 50 ML IVPB SCH (11:30)
[2018-05-16] MEDS ORDERED: Famotidine/PF 20 MG in Sodium Chloride 0.9% 50 ML IVPB SCH (11:30)
[2018-05-16] MEDS ORDERED: Sodium Chloride 0.9% 20 ML ONE (12:27)
== END 2018-05-16 18:36 | disposition home or self-care (01) ==
LOC: ONC/OP 10:49
PROVIDERS: ATTEND Internal Medicine Medical Oncology
DX: Z51.11 Encounter for antineoplastic chemotherapy (principal); C34.11 Malignant neoplasm of upper lobe, right bronchus or lung; Z87.891 Personal history of nicotine dependence
CPT/HCPCS: 96375; 96413; 96417; A4216; J1200; J2469; J7050; J9045; J9267; J9271; S0028

== ENCOUNTER 2018-05-21 20:46 | Emergency (ER) | payer OTHER, SELFPAY ==
[2018-05-21] MEDS ORDERED: HYDROcodone/Acetaminophen 5/325 mg Tablet ONE (22:33)
[2018-05-22] MEDS ORDERED: HYDROcodone/Acetaminophen 5/325 mg Tablet ONE (00:20)
[2018-05-22] MEDS ORDERED: Gabapentin 300 MG CAP PO SCH (00:30)
== END 2018-05-22 00:32 | disposition home or self-care (01) ==
LOC: ERS 20:46
DX: M79.2 Neuralgia and neuritis, unspecified (principal); C34.90 Malignant neoplasm of unspecified part of unspecified bronchus or lung; F32.9 Major depressive disorder, single episode, unspecified; Z87.891 Personal history of nicotine dependence
CPT/HCPCS: 99283

== ENCOUNTER 2018-06-01 09:15 | Outpatient (CLI) | payer OTHER, SELFPAY ==
--- NOTE | 2018-06-01 13:21 | MRI ---
MRI PELVIS WITH AND WITHOUT IV CONTRAST: HISTORY: Lung cancer and lower extremity pain and weakness. TECHNIQUE: Multiplanar, multisequence MR images were obtained of the pelvis with and without contrast, utilizing 13 mL of MultiHance. FINDINGS: No focal bone marrow signal abnormality is seen to suggest the presence of osseous metastatic disease . The sacral and neural foramina are patent. No presacral mass is demonstrated. There are scattere d diverticula involving the colon. The bladder, rectum, and perirectal soft tissues appear within no rmal limits. No lymphadenopathy or free fluid is identified. No acute fracture is noted. No area o f abnormal enhancement is demonstrated. IMPRESSION: 1. No overt evidence to suggest metastatic disease within the pelvis. 2. The sacral neural foramina appear patent. The visualized sciatic nerves are normal appearing. 3. Colonic diverticulosis. POS: [facility]
--- NOTE | 2018-06-01 13:26 | MRI ---
MRI LUMBAR SPINE WITH AND WITHOUT CONTRAST: HISTORY: Lung cancer. Extremity pain and weakness. COMPARISON: None. TECHNIQUE: MRI lumbar spine is performed without intravenous and with intravenous Gadolinium administration. Mu ltisequential, multiplanar imaging was performed. FINDINGS: Appropriate T1 marrow signal intensity of the lumbar vertebrae. Vertebral body height is maintained. There is no fracture. No significant STIR hyperintensity to suggest vertebral body edema or ligame ntous injury. Symmetric signal intensity of the psoas muscles. Appropriate signal intensity of the visualized solid organs. On the postcontrast images, there is no abnormal enhancement with regards to the vertebral body. The re is no abnormal enhancement in the thecal sac including the cauda equina and conus medullaris. Con us medullaris terminates at the upper aspect of L1. T12-L1: Adequate disk hydration. No significant central canal stenosis. Foramen are patent. L1-L2: Adequate disk hydration. No significant central canal stenosis or foraminal narrowing. L2-L3: Adequate disk hydration. No significant central canal stenosis. Neural foramina are patent bilaterally. L3-L4: Desiccation with mild loss of disk space height. There is a central T2 hyperintensity compat ible with an annular fissure. No significant central canal stenosis. Mild bilateral foraminal narro wing. L4-L5: There is desiccation with mild loss of disk space height. There is a central T2 hyperintensi ty compatible with an annular fissure. Mild central canal stenosis. Neural foramina are mildly narr owed bilaterally. L5-S1: Adequate disk hydration. No significant central canal stenosis. Neural foramen are patent. IMPRESSION: 1. No significant central canal stenosis or foraminal narrowing. 2. No pathologic enhancement with regards to the cauda equina, conus medullaris, or the lumbar verte bral bodies. 3. Annular fissure at L3-L4 and L4-L5 without significant central canal stenosis. POS: [facility]
== END 2018-06-01 09:16 | disposition home or self-care (01) ==
LOC: MRI 09:15
PROVIDERS: ATTEND Internal Medicine Medical Oncology
DX: C34.11 Malignant neoplasm of upper lobe, right bronchus or lung (principal); M79.669 Pain in unspecified lower leg; R53.1 Weakness; Q05.7 Lumbar spina bifida without hydrocephalus; K57.30 Diverticulosis of large intestine without perforation or abscess without bleeding
CPT/HCPCS: 72158; 72197

== ENCOUNTER 2018-06-06 11:29 | Day surgery (SDC) | payer OTHER ==
[2018-06-06] MEDS ORDERED: Sodium Chloride 0.9% 20 ML ONE (11:52)
[2018-06-06 12:42] VITALS: BP 110/66; TEMP 97.6
[2018-06-06] MEDS ORDERED: PALONOSETRON HCL 0.05 MG/ML 5 ML VIAL IVP SCH (12:45)
[2018-06-06] MEDS ORDERED: Dexamethasone 10 MG/ML VIAL SLOW IVP SCH (12:45)
[2018-06-06] MEDS ORDERED: Pembrolizumab 200 MG in Sodium Chloride 0.9% 250 ML 250 ML IV SCH (12:45)
[2018-06-06] MEDS ORDERED: Famotidine 20 MG TAB PO SCH (12:45)
[2018-06-06] MEDS ORDERED: diphenhydrAMINE 25 MG CAP PO SCH (12:45)
[2018-06-06] MEDS ORDERED: CARBOPLATIN IVPB SCH (13:00)
[2018-06-06] MEDS ORDERED: PACLitaxel 310 MG in Sodium Chloride 0.9% 500 ML IVPB SCH (13:00)
[2018-06-06] MEDS ORDERED: SODIUM CHLORIDE 0.9% IVPB SCH (13:00)
== END 2018-06-06 18:31 | disposition home or self-care (01) ==
LOC: ONC/OP 11:29
PROVIDERS: ATTEND Internal Medicine Medical Oncology
DX: Z51.11 Encounter for antineoplastic chemotherapy (principal); C34.11 Malignant neoplasm of upper lobe, right bronchus or lung; Z87.891 Personal history of nicotine dependence; Z79.899 Other long term (current) drug therapy
CPT/HCPCS: 96375; 96413; 96417; J1100; J1642; J2469; J7050; J9045; J9267; J9271

== ENCOUNTER 2018-06-26 08:56 | Outpatient (CLI) | payer OTHER ==
--- NOTE | 2018-06-26 12:02 | CT ---
CHEST CT SCAN WITH IV CONTRAST: History: 62-year-old male with history of C31.11, lung cancer. Comparison: 03-17-18 FINDINGS: The very large right lung mass is markedly decreased in size with the main portion of the mass now me asuring 4.7 x 5.8 cm where at the same location it measured approximately 8.6 x 10.0 cm. There are ad ditional patchy parenchymal changes in the right upper lobe with some associated volume loss but impr [place] when compared to the prior study. The right lower lobe and right middle lobe appear expanded. No new adenopathy or pleural effusion. IMPRESSION: Decrease in the size of the main mass component of the parenchymal changes in the right upper lobe wi th some improvement in the associated atelectasis in the right upper lobe. Expanded right middle lobe and right lower lobe. No mediastinal adenopathy. No pleural effusion. No new metastatic process. The re has been re-expansion of the right lower lobe. POS: [facility]
[2018-06-26] MEDS ORDERED: Iopamidol 370 76% 100 ML VIAL ONE (12:29)
== END 2018-06-26 08:57 | disposition home or self-care (01) ==
LOC: CT 08:56
PROVIDERS: ATTEND Internal Medicine Hematology & Oncology
DX: C34.11 Malignant neoplasm of upper lobe, right bronchus or lung (principal); R91.8 Other nonspecific abnormal finding of lung field; J98.11 Atelectasis
CPT/HCPCS: 71260; 82565

== ENCOUNTER 2018-06-28 07:59 | Day surgery (SDC) | payer OTHER ==
[2018-06-28] MEDS ORDERED: Sodium Chloride 0.9% 20 ML ONE (08:22)
[2018-06-28] MEDS ORDERED: Pembrolizumab 200 MG in Sodium Chloride 0.9% 250 ML 250 ML IV SCH (08:30)
[2018-06-28] MEDS ORDERED: PACLitaxel 310 MG in Sodium Chloride 0.9% 500 ML IVPB SCH (08:30)
[2018-06-28] MEDS ORDERED: SODIUM CHLORIDE 0.9% IVPB SCH (08:30)
[2018-06-28] MEDS ORDERED: PALONOSETRON HCL 0.05 MG/ML 5 ML VIAL IVP SCH (08:30)
[2018-06-28] MEDS ORDERED: Famotidine/PF 20 mg/2ml Vial SLOW IVP SCH (08:30)
[2018-06-28] MEDS ORDERED: Dexamethasone 20 MG in Sodium Chloride 0.9% 50 ML IVPB SCH (08:30)
[2018-06-28] MEDS ORDERED: CARBOPLATIN IVPB SCH (08:30)
[2018-06-28] MEDS ORDERED: diphenhydrAMINE 50 MG/ML VIAL IVP SCH (08:30)
[2018-06-28 09:10] VITALS: BP 118/67; TEMP 97.7
== END 2018-06-28 15:53 | disposition home or self-care (01) ==
LOC: ONC/OP 07:59
PROVIDERS: ATTEND Internal Medicine Medical Oncology
DX: Z51.11 Encounter for antineoplastic chemotherapy (principal); C34.11 Malignant neoplasm of upper lobe, right bronchus or lung
CPT/HCPCS: 96375; 96413; 96415; 96417; J1100; J1200; J1642; J2469; J7050; J9045; J9267; J9271; S0028

== ENCOUNTER 2018-07-18 10:52 | Day surgery (SDC) | payer OTHER ==
[2018-07-18] MEDS ORDERED: diphenhydrAMINE 50 MG CAP PO SCH (11:30)
[2018-07-18] MEDS ORDERED: Famotidine 20 MG TAB PO SCH (11:30)
[2018-07-18] MEDS ORDERED: PALONOSETRON HCL 0.05 MG/ML 5 ML VIAL IVP SCH (11:30)
[2018-07-18] MEDS ORDERED: Sodium Chloride 0.9% 40 ML ONE (11:45)
[2018-07-18] MEDS ORDERED: Dexamethasone 20 MG in Sodium Chloride 0.9% 50 ML IVPB SCH (12:00)
[2018-07-18 12:26] VITALS: BP 123/74; TEMP 97.8
[2018-07-18] MEDS ORDERED: Pembrolizumab 200 MG in Sodium Chloride 0.9% 250 ML 250 ML IV SCH (12:30)
[2018-07-18] MEDS ORDERED: SODIUM CHLORIDE 0.9% IVPB SCH (12:30)
[2018-07-18] MEDS ORDERED: CARBOPLATIN IVPB SCH (12:30)
[2018-07-18] MEDS ORDERED: PACLitaxel 310 MG in Sodium Chloride 0.9% 500 ML IVPB SCH (12:30)
== END 2018-07-18 17:53 | disposition home or self-care (01) ==
LOC: ONC/OP 10:52
PROVIDERS: ATTEND Internal Medicine Medical Oncology
DX: Z51.11 Encounter for antineoplastic chemotherapy (principal); C34.11 Malignant neoplasm of upper lobe, right bronchus or lung
CPT/HCPCS: 36415; 80053; 82248; 83615; 84100; 84550; 96375; 96413; 96415; 96417; J1100; J2469; J7050; J9045; J9267; J9271

== ENCOUNTER 2018-08-17 10:21 | Day surgery (SDC) | payer MEDICARE, OTHER ==
[2018-08-17] MEDS ORDERED: Sodium Chloride 0.9% 20 ML ONE (10:32)
[2018-08-17 10:48] VITALS: BP 112/70; TEMP 97.6
[2018-08-17] MEDS ORDERED: Pembrolizumab 200 MG in Sodium Chloride 0.9% 250 ML 250 ML IV SCH (11:00)
== END 2018-08-17 13:13 | disposition home or self-care (01) ==
LOC: ONC/OP 10:21
PROVIDERS: ATTEND Internal Medicine Medical Oncology
DX: Z51.11 Encounter for antineoplastic chemotherapy (principal); C34.11 Malignant neoplasm of upper lobe, right bronchus or lung; Z79.899 Other long term (current) drug therapy
CPT/HCPCS: 80053; 82248; 83615; 84100; 84443; 84550; 96413; J7050; J9271

== ENCOUNTER 2018-09-05 08:56 | Outpatient (CLI) | payer MEDICARE, OTHER ==
[2018-09-05] MEDS ORDERED: ISOVUE-370 76%-LOCM 1 ML ONE (09:49)
--- NOTE | 2018-09-05 11:28 | CT ---
CHEST CT WITH CONTRAST: HISTORY: Malignant neoplasm of the right upper lobe. The patient is undergoing chemotherapy. COMPARISON: 03/17/2018 and 06/26/2018 TECHNIQUE: Post contrast chest CT is performed in the axial plane. Coronal reformatted images are submitted for interpretation. FINDINGS: There is mild mucosal thickening as well as peripheral fat stranding involving the proximal to mid th oracic esophagus. Correlate for possible esophagitis secondary to cancer treatment. Heart size is w ithin normal limits. No pericardial effusion. The thoracic aorta and the upper abdominal aorta have a normal caliber. No periaortic fat stranding. Adequate opacification in the central pulmonary art erial system. No evidence of a central pulmonary artery embolism. The visualized upper solid abdominal organs are unremarkable. There is mucosal prominence and narrowing of the right upper lobe bronchus. There is consolidation w ith air bronchograms centrally. There is a more focal opacity in the superolateral aspect of the rig ht upper lobe, with heterogeneous attenuation, suggesting areas of necrosis. This hypodense mass ant sures 4.2 x 6.2 cm and abuts the right major fissure. Additional opacities are noted in the right baudilio ng apex, which may represent fibrosis/scar or possibly small satellite lesions. The degree of opacif ication in the apex and anterior aspect of the right upper lobe has slightly decreased. There is per sistent volume loss of right upper lobe. Adequate aeration of the middle lobe, right lower lobe, and left lung; no evidence of new masses. No pleural effusion or pneumothorax. No lytic or blastic lesions in the osseous structures. IMPRESSION: 1. Stable lung parenchymal changes in the right upper lobe. Stable areas of consolidation with chelsie tional areas of more patchy opacification. Findings are presumed to represent post treatment change. Residual tumor, atelectasis, and/or pneumonia cannot be excluded. There are no new masses identifi ed in the remainder of the right lung or the left lung. 2. Mucosal prominence and stranding involving the proximal and mid thoracic esophagus, which may rep resent post treatment change. When compared to the examination from March 2018, there is marked imp rovement. When compared to the examination from June 2018, there is slight improved aeration of the anterior aspect of the right upper lobe. POS: [facility]
== END 2018-09-05 08:57 | disposition home or self-care (01) ==
LOC: BICCT 08:56
PROVIDERS: ATTEND Internal Medicine Hematology & Oncology
DX: C34.11 Malignant neoplasm of upper lobe, right bronchus or lung (principal)
CPT/HCPCS: 71260

== ENCOUNTER 2018-09-07 10:21 | Day surgery (SDC) | payer MEDICARE, OTHER ==
[2018-09-07] MEDS ORDERED: Sodium Chloride 0.9% 20 ML ONE (10:49)
[2018-09-07] MEDS ORDERED: Sodium Chloride 0.9% 30 ML ONE (10:57)
[2018-09-07] MEDS ORDERED: Pembrolizumab 200 MG in Sodium Chloride 0.9% 250 ML 250 ML IV SCH (11:00)
[2018-09-07 12:03] VITALS: BP 111/73; TEMP 97.8
== END 2018-09-07 12:20 | disposition home or self-care (01) ==
LOC: ONC/OP 10:21
PROVIDERS: ATTEND Internal Medicine Medical Oncology
DX: Z51.12 Encounter for antineoplastic immunotherapy (principal); C34.11 Malignant neoplasm of upper lobe, right bronchus or lung
CPT/HCPCS: 80053; 82248; 83615; 84100; 84443; 84550; 96413; J7050; J9271

== ENCOUNTER 2018-09-28 01:09 | Day surgery (SDC) | payer MEDICARE, OTHER ==
[2018-09-28] MEDS ORDERED: Pembrolizumab 200 MG in Sodium Chloride 0.9% 250 ML 250 ML IV SCH (06:00)
[2018-09-28 10:37] VITALS: BP 115/71; TEMP 98
== END 2018-09-28 11:30 | disposition home or self-care (01) ==
LOC: ONC/OP 01:09
PROVIDERS: ATTEND Internal Medicine Medical Oncology
DX: Z51.12 Encounter for antineoplastic immunotherapy (principal); C34.11 Malignant neoplasm of upper lobe, right bronchus or lung; Z79.899 Other long term (current) drug therapy
CPT/HCPCS: 36415; 80053; 82248; 83615; 84100; 84443; 84550; 96413; J7050; J9271

== ENCOUNTER 2018-10-01 13:25 | Inpatient (IN) | payer MEDICARE, OTHER ==
[2018-10-01] MEDS ORDERED: Ondansetron PF 4 MG/2 ML Vial ONE (13:48)
[2018-10-01] MEDS ORDERED: Morphine 4 MG/ML VIAL ONE (13:48)
[2018-10-01 14:02] LABS: #Lymphocytes 1.2 thou/uL (1.20-3.40); #Monocytes 0.6 thou/uL (0.11-0.59); #Neutrophils 4.7 thou/uL (1.40-6.50); %Basophils 0.5 % (0.0-1.0); %Eosinophils 0.7 % (0.0-10.0); %Monocytes 9.3 % (0.0-10.0); %Neutrophils 71.7 % (42.0-75.0); Hemoglobin 13.3 g/dL (14.0-18.0); Mean Corpuscular HGB CONC 33.4 g/dL (32.0-36.0); Mean Corpuscular Hemoglobin 30.9 pg (27.0-31.0); Mean Corpuscular Volume 92.6 fL (78.0-98.0); Mean Platelet Volume 6.6 fL (7.4-10.4); Platelet Count 380 thou/uL (130-400); RBC Distribution Width 13.7 % (11.5-14.5); Red Blood Cell (RBC) Count 4.31 mill/uL (4.70-6.10); White Blood Cell (WBC) Count 6.5 thou/uL (4.8-10.8)
[2018-10-01 14:17] LABS: ALT (SGPT) 594 U/L (8-55); AST (SGOT) 886 U/L (5-34); Albumin 4.8 g/dL (3.4-4.8); Alkaline Phosphatase 647 U/L (40-150); Anion Gap 17 mmol/L (10-20); BUN (Urea Nitrogen) 21 mg/dL (8.4-25.7); Bilirubin, Total 1.7 mg/dL (0.2-1.2); Calc. Creatinine Clearance 0 mL/min (70-130); Calcium 10.5 mg/dL (7.8-10.44); Carbon Dioxide 22 mmol/L (23-31); Chloride 103 mmol/L (98-107); Estimated GFR-MDRD 58; Globulin 4.2 g/dL (2.4-3.5); Glucose 142 mg/dL (80-115); Lipase 7 U/L (8-78); Sodium 138 mmol/L (136-145)
[2018-10-01 14:42] LABS: Bilirubin Small (Negative); Blood, Urine Negative (Negative); Clarity CLOUDY (Clear); Glucose, Urine (Dipstick) Negative (Negative); Leukocyte Negative (Negative); Nitrite Negative (Negative); Protein, Urine (Dipstick) 30 mg/dL (Neg-Trace); Specific Gravity, Urine 1.025 (1.002-1.036); pH, Urine 7.5 (5.0-9.0)
[2018-10-01 14:43] LABS: Bacteria/HPF None Seen HPF (None Seen); Hyaline Casts/LPF 7-10 HYALINE CAST LPF (0-3 Hyaline); RBC/HPF 0-3 HPF (0-3); Squamous Epithelial 0-3 HPF (0-3); WBC/HPF 0-3 HPF (0-3)
--- NOTE | 2018-10-01 15:55 | ULT ---
RIGHT UPPER QUADRANT ULTRASOUND: Date: 10/01/18 HISTORY: Nausea and complains of left upper quadrant abdominal pain. 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 Patient has history of lung canc er. COMPARISON: None available. FINDINGS: The gallbladder is mildly distended. There is echogenic material seen within the gallbladder lumen, l ikely attributable to tumefactive sludge. Also within the region of presumed sludge, there are echoge leda foci demonstrating posterior shadowing most compatible with gallbladder calculi. The gallbladder wall is thickened, measuring 0.6 cm. No pericholecystic fluid is visualized. The visualized portions of the pancreas, visualized portions of the IVC, liver, and right kidney demo nstrate a normal sonographic appearance. The right kidney measures 10.3 cm in length. The common duct is dilated, measuring 0.9 cm in diameter. No intrahepatic biliary ductal dilatation i s appreciated on this examination. IMPRESSION: 1. Cholelithiasis and gallbladder sludge with thickening of the gallbladder wall. Although no defini te pericholecystic fluid is seen, findings could be related to cholecystitis in the correct clinical scenario, which may be acute or chronic. 2. Dilatation of the common duct measuring 0.9 cm. No intrahepatic biliary ductal dilatation is appr eciated on provided images. POS: [facility]
[2018-10-01 16:06] LABS: INR-International Normal Ratio 0.9; PTT 35.6 SEC (22.9-36.1); Prothrombin Time 12.6 SEC (12.0-14.7)
[2018-10-01 16:15] LABS: Acetaminophen Less than 6.0 mcg/mL (10.0-30.0)
[2018-10-01 16:35] LABS: HBSAg Index 0.19 S/CO (0-0.99); Hep B Surf Ag Non-Reactive S/CO (NonReactive); Hep C IgG Ab Non-Reactive (NonReactive); Hep C Index 0.09 S/CO (0-0.79)
[2018-10-01 16:37] LABS: Hep A IgM AB Non-Reactive (NonReactive); Hep A IgM S/CO 0.12 S/CO (0-0.79)
[2018-10-01 16:38] LABS: HBCM Index 0.07 S/CO (0-0.79); Hepatitis B Core IgM Abs Non-Reactive (NonReactive)
[2018-10-01] MEDS ORDERED: Ondansetron PF 4 MG/2 ML Vial IVP PRN (17:17)
[2018-10-01] MEDS ORDERED: Pantoprazole 40 MG VIAL IVP SCH ×2 (17:19→17:30)
--- NOTE | 2018-10-01 20:11 | HP ---
CHIEF COMPLAINT: Abdominal pain. HISTORY OF PRESENT ILLNESS: The patient is a very pleasant 63-year-old male with a history of non-small cell carcinoma, status post chemotherapy last in July, currently on Keytruda every three weeks, who presented to the hospital with complaints of abdominal pain. The patient states that he has been having abdominal pain on and off for the past couple months. He has not noticed his abdominal pain, particularly with any types of foods. The patient states that his pain can be 8 to 12 hours after eating. The patient states that his pain is very intense, feels like a soreness. He also complains of it as a burning-like sensation. He states that normally he feels that vomiting or having a bowel movement would help the pain; however, even if he throws up, the pain is not relieved. The patient states that he has not been constipated. He is having normal bowel movements. The patient currently has been weaning off the long-acting morphine that he has been taking for his pain. The patient's last Keytruda dose was on . The patient states that on and off for the past month, he has been having abdominal pain; however, he feels that the severity and the frequency are increasing. The patient states that last night he ate around 04:00 p.m., he had carmona-fried pork chops and some potatoes and a slice of cheese. The patient was fine and he was able to tolerate his food. At 4 o'clock this a.m., he woke up with intense abdominal pain, felt like a burning sensation, felt like it would intensify at times. When he realized that the pain was not improving, he came into the ER for further evaluation. The patient stated that he had a similar episode a few weeks ago, where his pain lasted about 20 hours to the point where he was so exhausted. He went to sleep and woke up and that is when his pain was gone. The patient states that he has been following up with GI and was told to stay away from certain foods, most likely this is due to gallbladder disease. The patient also has been taking Maalox without any help. The patient states that he has not been taking any ibuprofen or Advil. PAST MEDICAL HISTORY: He has a history of non-small cell carcinoma of the lung, status post chemotherapy. Last chemotherapy was in July 2018. Currently, he is on Keytruda. PAST SURGICAL HISTORY: He got bilateral arthroscopic knee surgeries and tonsillectomy. SOCIAL HISTORY: He is a 40-pack smoker, quit about 5 months ago. He lives with his girlfriend. No history of drug use or alcohol use. He is a full code. MEDICATIONS: The patient takes some long-acting morphine and the Zofran was discontinued. ALLERGIES: HE GOT NO KNOWN DRUG ALLERGIES. FAMILY HISTORY: No history of strokes and cancers. REVIEW OF SYSTEMS: All negative except for the ones mentioned above in HPI. LABORATORY RESULTS: As of the following: WBCs of 6.5, hemoglobin of 13.3, hematocrit of 39.9, platelets of 380. Chemistry: Sodium of 138, potassium of 4.0, BUN of 21, creatinine of 1.25. His AST is 886, ALT is 594, total bilirubin is 1.7, alkaline phos is 647. His TSH is 51.6. His urine appears to be normal. His toxicology acetaminophen level was less than 6. Serology: His hepatitis is negative. He did have a right upper quadrant ultrasound, which indicated as the following: He had cholelithiasis and gallbladder sludge with thickening of the gallbladder wall. There is no pericholecystic fluid seen. This could be related to possible cholecystitis. He does have a dilated common bile duct; however, no intrahepatic biliary duct dilation is appreciated. ASSESSMENT AND PLAN: The patient is a very pleasant 63-year-old male, who presents to the hospital with complaints of abdominal pain. 1. Abdominal pain. This could be possible secondary to gallbladder disease versus peptic ulcer disease versus possible side effects from the Keytruda versus drug reactions from his chemotherapy medication versus pain versus narcotic withdrawal. The patient does not recall if his symptoms get worse after taking Keytruda; however, he does have significant elevated LFTs. His hepatitis panel is negative. We will start the patient on some IV hydration, put him on clear liquids, n.p.o. after midnight. I do not see any infectious etiology. I will not start the patient on any antibiotics. Gastroenterology has been consulted. I will also put him on Protonix b.i.d. He has not been taking any ibuprofen and also Surgery has been consulted for possible cholecystectomy. The patient has had no episodes of hypotension that could be causing significant elevated LFTs. 2. Elevated LFTs with elevated liver function. His total bilirubin is 1.7; however, his coagulation is completely normal. Again, this could be secondary to his underlying gallbladder disease. His ultrasound did show cholelithiasis with sludge. Again, we will keep the patient n.p.o. after midnight. We will start him on IV hydration and GI has been consulted. 3. History of non-small cell carcinoma. I will continue his pain medication as needed. 4. Hypothyroidism. The patient's TSH is significantly elevated. I will see if his medications were recently adjusted. 5. Deep venous thrombosis prophylaxis. We will put the patient on subcu heparin. Job ID: [id number]
[2018-10-01] MEDS: Dextrose 5 % And 0.9 % NaCl 1,000 ML IV SCH (20:28)
[2018-10-01] MEDS: Morphine 2 MG/ML SYRINGE SLOW IVP PRN (20:34)
[2018-10-01] MEDS: Pantoprazole 40 MG VIAL IVP SCH (20:35)
[2018-10-02] MEDS: Morphine 2 MG/ML SYRINGE SLOW IVP PRN ×2 (00:52→05:13)
[2018-10-02 08:51] LABS: #Eosinphils 0.1 thou/uL (0.0-0.7); #Lymphocytes 0.9 thou/uL (1.20-3.40); #Monocytes 0.8 thou/uL (0.11-0.59); #Neutrophils 7.8 thou/uL (1.40-6.50); %Basophils 0.1 % (0.0-1.0); %Eosinophils 0.5 % (0.0-10.0); %Lymphocytes 9.4 % (21.0-51.0); %Monocytes 8.3 % (0.0-10.0); %Neutrophils 81.6 % (42.0-75.0); Hemoglobin 11.5 g/dL (14.0-18.0); Mean Corpuscular Hemoglobin 30.9 pg (27.0-31.0); Mean Corpuscular Volume 93.6 fL (78.0-98.0); Mean Platelet Volume 6.4 fL (7.4-10.4); Platelet Count 284 thou/uL (130-400); RBC Distribution Width 13.6 % (11.5-14.5); Red Blood Cell (RBC) Count 3.74 mill/uL (4.70-6.10); White Blood Cell (WBC) Count 9.5 thou/uL (4.8-10.8)
--- NOTE | 2018-10-02 09:10 | PDOC.PN ---
- Subjective Encounter Start Date: 10/02/18 Encounter Start Time: 19:00 Subjective: Patient back from ERCP, unable to cannulate sphincter of Bubba. Belly -: not hurting right now. A little yellow. - Objective Resuscitation Status - Order Detail: 10/01/18 17:17 Resuscitation Status Routine Resuscitation Status: FULL: Full Resuscitation MAR Reviewed: Yes Vital Signs & Weight: Vital Signs (12 hours) Temp Pulse Resp BP Pulse Ox 10/02/18 07:38 98.0 F 70 16 104/67 96 10/02/18 00:00 98.6 F 82 18 120/67 95 Weight Weight 151 lb 9 oz I&O: 10/01/18 10/02/18 10/03/18 06:59 06:59 06:59 Intake Total 1150 109 Balance 1150 109 Result Diagrams: 10/02/18 08:37 10/02/18 08:37 Phys Exam - Physical Examination Constitutional: NAD HEENT: moist MMs icteric sclera Respiratory: no wheezing, no rales, no rhonchi Cardiovascular: RRR, no significant murmur Gastrointestinal: soft, positive bowel sounds Neurological: non-focal, moves all 4 limbs Psychiatric: normal affect, A&O x 3 Dx/Plan (1) Abdominal pain Code(s): R10.9 - UNSPECIFIED ABDOMINAL PAIN Status: Acute Comment: likely due to gallstones, possible acute on chronic cholecystitis (2) Elevated liver enzymes Code(s): R74.8 - ABNORMAL LEVELS OF OTHER SERUM ENZYMES Status: Acute Comment: rechecking enzymes this morning (3) Non-small cell cancer of right lung Code(s): C34.91 - MALIGNANT NEOPLASM OF UNSP PART OF RIGHT BRONCHUS OR LUNG Status: Chronic Comment: on Keytruda - Plan cont current plan of care, DVT proph w/lovenox Plan for cholecystectomy in the morning. * . - Discharge Day Encounter end time: 19:15
[2018-10-02 09:21] LABS: ALT (SGPT) 633 U/L (8-55); AST (SGOT) 447 U/L (5-34); Alkaline Phosphatase 636 U/L (40-150); Anion Gap 12 mmol/L (10-20); BUN (Urea Nitrogen) 14 mg/dL (8.4-25.7); Bilirubin, Total 3.2 mg/dL (0.2-1.2); Calc. Creatinine Clearance 66 mL/min (70-130); Calcium 9.4 mg/dL (7.8-10.44); Carbon Dioxide 23 mmol/L (23-31); Chloride 106 mmol/L (98-107); Estimated GFR-MDRD 68; Globulin 3.4 g/dL (2.4-3.5); Glucose 109 mg/dL (80-115); Potassium 4.2 mmol/L (3.5-5.1); Protein, Total 7.4 g/dL (5.8-8.1); Sodium 137 mmol/L (136-145)
[2018-10-02] MEDS: Enoxaparin Sodium 40 MG/0.4 ML SYRINGE SC SCH (10:05)
[2018-10-02] MEDS ORDERED: Indomethacin 50 MG SUPP PR SCH (10:30)
[2018-10-02] MEDS: Pantoprazole 40 MG VIAL IVP SCH ×2 (11:17→20:56)
[2018-10-02] MEDS: Dextrose 5 % And 0.9 % NaCl 1,000 ML IV SCH ×2 (11:18→20:10)
[2018-10-02] MEDS: Piperacillin/Tazobactam 2.25 GM in Sodium Chloride 0.9% 100 ML IVPB SCH ×2 (11:19→19:51)
[2018-10-02 11:32] VITALS: BMI 23.0
[2018-10-02] MEDS ORDERED: Iothalamate Meglumine 60% 50 ML VIAL FS ONE (13:32)
[2018-10-02] MEDS ORDERED: Indomethacin 50 MG SUPP ONE (13:32)
--- NOTE | 2018-10-02 14:58 | CON ---
DATE OF CONSULTATION: 10/02/2018 REASON FOR CONSULTATION: Elevated LFTs, possible choledocholithiasis, right upper quadrant abdominal pain. CONSULTING PHYSICIAN: Suze Galvan MD HISTORY OF PRESENT ILLNESS: The patient is a 63-year-old male with past medical history of non-small cell lung cancer, who was diagnosed in 2018, now status post chemotherapy, presenting with complaints of intermittent abdominal pain. He states that for the last 3 to 4 months, he has been having intermittent right upper quadrant/midepigastric abdominal pain characterized as a burning-type sensation will occur within 1 to 2 hours of eating either solids or liquids and would last for anywhere between 2 to 20 hours with the severity of approximately 9/10. The pain was worse with increased physical activity, eating or drinking anything, better with placement of a heating pad over the region and pain medications. This was associated with increased nausea, vomiting with nonbloody emesis. With this intermittent abdominal pain, it ultimately increased in severity and remained constant over the last 24 to 48 hours, prompting the patient to seek healthcare assistance. Upon evaluation in the ER, the patient was noted to have significantly elevated LFTs and was admitted to the hospital for further evaluation. Currently, the patient is feeling better after administration of narcotic medications, but continues to have the right upper quadrant abdominal pain. Currently, denies any fevers, chills, GI bleeding, dysphagia, odynophagia, diarrhea, or weight loss. Of note, the patient had been evaluated in the GI clinic for evaluation of this right upper quadrant abdominal pain and approximately 1 month ago, he was noted to have completely normal LFTs with possible etiology of his pain being either constipation or gallbladder disease. REVIEW OF SYSTEMS: A 10-category review of systems was obtained with all responses negative except for the pertinent positives as listed in HPI. PAST MEDICAL HISTORY: As per HPI. PAST SURGICAL HISTORY: Bilateral knee surgery and tonsillectomy. FAMILY HISTORY: Denies any GI malignancies. SOCIAL HISTORY: Quit smoking about 5 months ago with a 40 pack-year history. Currently, denies any alcohol or illicit drug use. OUTPATIENT MEDICATIONS: 1. Long-acting morphine. 2. Hydrocodone. 3. Zofran. ALLERGIES: NO KNOWN DRUG ALLERGIES. PHYSICAL EXAMINATION: VITAL SIGNS: Temperature 97.6, pulse 71, blood pressure 108/70, respiratory rate 16, saturating 96% on room air. GENERAL: The patient is lying in bed, in no acute distress. Alert and oriented x4. HEENT: Normocephalic, atraumatic with no scleral icterus noted. NECK: Supple. CARDIOVASCULAR: Regular rate and rhythm with no discernible murmurs, gallops, or rubs. RESPIRATORY: Clear to auscultation bilaterally with no discernible wheezes or rales. ABDOMEN: Normoactive bowel sounds. Soft, nondistended. Tenderness to palpation in the midepigastric and just left of midline. EXTREMITIES: No cyanosis, clubbing, or edema. LABORATORY DATA: CBC with a white blood cell count of 9.5, hemoglobin 11.5, hematocrit 35, platelets 284. INR 0.9. Chemistry with a sodium of 138, potassium 4, chloride 103, CO2 of 22, BUN 21, creatinine 1.25, glucose 142, AST 886, ALT 594, alkaline phosphatase 647, total bilirubin 1.7, albumin 4.8, lipase 7. Acute hepatitis panel negative. IMAGING DATA: Right upper quadrant ultrasound obtained on October 01, 2018, showed tumefactive sludge as well as cholelithiasis within the gallbladder itself as well as gallbladder wall thickening at approximately 0.6 cm. There was no evidence of pericholecystic fluid, but the common bile duct was dilated to approximately 0.9 cm with no intrahepatic dilatation. ASSESSMENT AND PLAN: The patient is a 63-year-old male with past medical history of non-small cell lung cancer, status post chemotherapy, presenting with an elevated LFT pattern consistent with choledocholithiasis. Choledocholithiasis. The patient is presenting with a history of intermittent right upper quadrant/midepigastric abdominal pain that has been present for the last 3 to 4 months, characterized as a burning-type sensation that would radiate to the right upper quadrant and would last for approximately 2 to 20 hours in duration. Upon evaluation in the GI clinic approximately 1 month ago, he had normal LFTs. However, with his worsening abdominal pain over the last 24 to 48 hours, he was noted to have significantly elevated LFTs in an obstructive-type pattern. Right upper quadrant ultrasound showed the presence of dilation of the common bile duct without any evidence of intrahepatic dilatation, but did also show the presence of cholelithiasis and tumefactive sludge consistent with a possible choledocholithiasis picture. At this point, given the labs and imaging, it is strongly suggestive of choledocholithiasis and the patient would benefit from more urgent endoscopic retrograde cholangiopancreatography. RECOMMENDATIONS: 1. Would continue n.p.o. status in preparation for ERCP. 2. Would place the patient on broad-spectrum antibiotics including Zosyn for infection prophylaxis. 3. Would continue to trend LFTs daily to assess for worsening or resolution of his transaminitis. 4. We will plan for ERCP later today with indomethacin given prior to the procedure to prevent post ERCP pancreatitis. 5. Further recommendations to follow ERCP, but I would recommend consultation of General Surgery Service with cholecystectomy obtained sometime during this admission. We will continue to follow. Please call with any questions. Job ID: [id number]
[2018-10-02] MEDS ORDERED: PROPOFOL 200 MG/20 ML VIAL ONE (15:04)
[2018-10-02] MEDS ORDERED: Metoclopramide HCl 10 MG/2 ML VIAL ONE (15:04)
[2018-10-02] MEDS ORDERED: Rocuronium Bromide 10 MG/ML (10ML VIAL) ONE (15:04)
[2018-10-02] MEDS ORDERED: Lidocaine 1% PF 5 ML VIAL ONE (15:04)
[2018-10-02] MEDS ORDERED: Ondansetron PF 4 MG/2 ML Vial ONE (15:04)
[2018-10-02] MEDS ORDERED: ePHEDrine 50 MG/ML VIAL ONE (15:04)
[2018-10-02] MEDS ORDERED: Glycopyrrolate 0.2 MG/ML 5 ML SYRINGE ONE (15:04)
[2018-10-02] MEDS ORDERED: Promethazine HCl 25 MG/ML VIAL SLOW IVP PRN (15:16)
[2018-10-02] MEDS ORDERED: Ondansetron HCl/PF 4 MG/2 ML Vial IVP PRN (15:16)
[2018-10-02] MEDS ORDERED: Promethazine HCl 25 MG/ML VIAL IM PRN (15:16)
--- NOTE | 2018-10-02 16:23 | RAD ---
ERCP: HISTORY: Right upper quadrant pain with gallstones and gallbladder wall thickening. TECHNIQUE: A single portable fluoroscopic spot film is presented for interpretation. FINDINGS: There is faint contrast identified within the common bile duct without evidence for dictation dilatat ion of the visualized common duct and intrahepatic ducts. IMPRESSION: Incompletely visualized common duct, but no significant ductal dilatation or overt intraductal calcul us seen on this single spot study. POS: [facility]
--- NOTE | 2018-10-02 17:20 | OP ---
DATE OF PROCEDURE: 10/02/2018 PROCEDURE PERFORMED: Incomplete ERCP (esophagogastroduodenoscopy) . INDICATION FOR PROCEDURE: Transaminitis, possible choledocholithiasis. DESCRIPTION OF PROCEDURE: After the risks and benefits of the procedure were explained to the patient including risks of bleeding, infection, perforation, reactions to anesthesia, aspiration, pancreatitis, and/or pain, informed consent was obtained. The patient was then taken to the endoscopy suite, where general anesthesia with endotracheal tube intubation was performed with anesthesia support. Once the patient was sedated and intubated, he was maneuvered into the prone position in preparation for the ERCP. Using a standard duodenoscope, it was introduced into the mouth with intubation of the esophagus, stomach, and proximal small intestine with the findings listed below. The ampulla of Vater was easily identified within the small bowel, but despite multiple attempts to cannulate, cannulate the ampulla were unsuccessful the procedure resentment was aborted prematurely with all equipment removed from the patient. Upon completion of the procedure, this procedure, the patient was transferred to PACU in satisfactory condition. FINDINGS: EGD: Limited views were obtained of the esophagus, stomach, and the proximal small intestines due to the side-viewing nature of the scope of the mucosa visualized, there was normal-appearing mucosa within the esophagus, stomach, and proximal small intestine. ERCP findings: The ampulla of Vater was easily identified within the second portion of the duodenum and had a mild bulbous appearance to it along the fold, but not necessarily at the ampulla itself. However, despite multiple attempts to cannulate the ampulla with a 5 mm sphincterotome, all attempts were unsuccessful to successfully cannulate the common bile duct. After attempting for approximately 45 to 60 minutes, the procedure was then terminated given incomplete cannulation of the common bile duct and the procedure prematurely aborted. All equipment was then removed from the patient. The patient was transferred to the PACU in satisfactory condition. IMPRESSION: 1. Normal esophagogastroduodenoscopy findings. 2. Incomplete cannulation of the common bile duct with contrast injected showing mild dilation of the common bile duct at approximately 1 cm. RECOMMENDATIONS: 1. Would place the patient on a clear liquid diet in anticipation for possible cholecystectomy tomorrow. 2. If the cholecystectomy is performed, would recommend an intraoperative cholangiogram for visualization of the common bile duct and if positive, would then repeat endoscopic retrograde cholangiopancreatography. 3. Would continue the patient on broad-spectrum antibiotics including Zosyn for possible choledocholithiasis. 4. Pain control per Primary Team. We will continue to follow. Please call with any questions. Job ID: [id number] MTDD
[2018-10-02] MEDS: Sodium Chloride 0.9% (PF) 10 ML VIAL FS PRN (20:56)
[2018-10-02] MEDS: Mirtazapine 30 MG TAB PO SCH (21:20)
[2018-10-03] MEDS: Piperacillin/Tazobactam 2.25 GM in Sodium Chloride 0.9% 100 ML IVPB SCH ×3 (03:05→20:53)
[2018-10-03 04:11] LABS: #Eosinphils 0.2 thou/uL (0.0-0.7); #Lymphocytes 0.9 thou/uL (1.20-3.40); #Monocytes 0.5 thou/uL (0.11-0.59); #Neutrophils 4.6 thou/uL (1.40-6.50); %Basophils 0.4 % (0.0-1.0); %Eosinophils 3.3 % (0.0-10.0); %Lymphocytes 14.9 % (21.0-51.0); %Monocytes 7.4 % (0.0-10.0); Hemoglobin 10.7 g/dL (14.0-18.0); Mean Corpuscular HGB CONC 34.3 g/dL (32.0-36.0); Mean Corpuscular Hemoglobin 32.1 pg (27.0-31.0); Mean Corpuscular Volume 93.7 fL (78.0-98.0); Mean Platelet Volume 6.4 fL (7.4-10.4); Platelet Count 247 thou/uL (130-400); RBC Distribution Width 13.3 % (11.5-14.5); Red Blood Cell (RBC) Count 3.34 mill/uL (4.70-6.10); White Blood Cell (WBC) Count 6.2 thou/uL (4.8-10.8)
[2018-10-03 04:32] LABS: ALT (SGPT) 388 U/L (8-55); AST (SGOT) 156 U/L (5-34); Albumin 3.5 g/dL (3.4-4.8); Alkaline Phosphatase 510 U/L (40-150); Anion Gap 11 mmol/L (10-20); BUN (Urea Nitrogen) 13 mg/dL (8.4-25.7); Bilirubin, Total 2.5 mg/dL (0.2-1.2); Calc. Creatinine Clearance 65 mL/min (70-130); Calcium 9.2 mg/dL (7.8-10.44); Carbon Dioxide 21 mmol/L (23-31); Chloride 111 mmol/L (98-107); Estimated GFR-MDRD 66; Globulin 3.2 g/dL (2.4-3.5); Glucose 99 mg/dL (80-115); Potassium 3.7 mmol/L (3.5-5.1); Protein, Total 6.7 g/dL (5.8-8.1); Sodium 139 mmol/L (136-145)
[2018-10-03] MEDS ORDERED: Levothyroxine Sodium 100 MCG TAB PO SCH (06:00)
--- NOTE | 2018-10-03 08:18 | PDOC.PN ---
- Subjective Encounter Start Date: 10/03/18 Encounter Start Time: 10:00 Subjective: Patient without any pain last night. No nausea or vomiting. -: Hungry and waiting for surgery. - Objective Resuscitation Status - Order Detail: 10/01/18 17:17 Resuscitation Status Routine Resuscitation Status: FULL: Full Resuscitation MAR Reviewed: Yes Vital Signs & Weight: Vital Signs (12 hours) Temp Pulse Resp BP Pulse Ox 10/03/18 07:56 98.3 F 65 16 110/65 96 10/03/18 03:07 97.7 F 71 16 111/61 95 Weight Weight 151 lb 9 oz I&O: 10/02/18 10/03/18 10/04/18 06:59 06:59 06:59 Intake Total 1150 809 Balance 1150 809 Result Diagrams: 10/03/18 03:58 10/03/18 03:58 Phys Exam - Physical Examination Constitutional: NAD HEENT: moist MMs Respiratory: no wheezing, no rales, no rhonchi Cardiovascular: RRR, no significant murmur Gastrointestinal: soft, positive bowel sounds Mild TTP RUQ and MAINOR, no guarding or rebound tenderness Musculoskeletal: no edema Neurological: non-focal, moves all 4 limbs Psychiatric: normal affect, A&O x 3 Dx/Plan (1) Abdominal pain Code(s): R10.9 - UNSPECIFIED ABDOMINAL PAIN Status: Acute Comment: likely due to gallstones, possible acute on chronic cholecystitis (2) Elevated liver enzymes Code(s): R74.8 - ABNORMAL LEVELS OF OTHER SERUM ENZYMES Status: Acute Comment: enzymes improving a little today (3) Non-small cell cancer of right lung Code(s): C34.91 - MALIGNANT NEOPLASM OF UNSP PART OF RIGHT BRONCHUS OR LUNG Status: Chronic Comment: on Keytruda (4) Cholestatic jaundice Code(s): R17 - UNSPECIFIED JAUNDICE Status: Acute Comment: improving, likely passed a stone - Plan cont current plan of care, DVT proph w/lovenox cholecystectomy today * . - Discharge Day Encounter end time: 10:15
[2018-10-03] MEDS: Sodium Chloride 0.9% (PF) 10 ML VIAL FS PRN (08:30)
[2018-10-03] MEDS: Pantoprazole 40 MG VIAL IVP SCH (08:30)
[2018-10-03] MEDS: Enoxaparin Sodium 40 MG/0.4 ML SYRINGE SC SCH (08:31)
[2018-10-03] MEDS ORDERED: Fentanyl 100 MCG/2 ML VIAL ONE ×2 (13:23→15:04)
[2018-10-03] MEDS ORDERED: Bupivacaine HCl 0.5%/Epinephrine 1:200,000/PF 30 ml Vial ONE (13:24)
[2018-10-03] MEDS ORDERED: Iothalamate Meglumine 60% 50 ML VIAL FS ONE (13:24)
[2018-10-03] MEDS ORDERED: Dexamethasone 20 MG/5 ML VIAL ONE (14:19)
[2018-10-03] MEDS ORDERED: PROPOFOL 200 MG/20 ML VIAL ONE (14:19)
[2018-10-03] MEDS ORDERED: Lidocaine 1% PF 5 ML VIAL ONE (14:19)
[2018-10-03] MEDS ORDERED: Ketorolac Tromethamine 30 MG/ML VIAL ONE (14:19)
[2018-10-03] MEDS ORDERED: Rocuronium Bromide 10 MG/ML (10ML VIAL) ONE (14:19)
[2018-10-03] MEDS ORDERED: Glycopyrrolate 0.2 MG/ML 5 ML SYRINGE ONE (14:19)
[2018-10-03] MEDS ORDERED: Ondansetron PF 4 MG/2 ML Vial ONE (14:19)
--- NOTE | 2018-10-03 14:24 | CON ---
DATE OF CONSULTATION: 10/03/2018 CHIEF COMPLAINT: Gallstones and choledocholithiasis. HISTORY OF PRESENT ILLNESS: This is a 63-year-old male with a history of lung cancer, who presents with epigastric right upper quadrant pain, found to have elevated liver function tests in the emergency room as well as a dilated common bile duct. He had attempted ERCP yesterday by Dr. Chen, where contrast was able to be injected into the common duct, which showed no obvious obstruction; however, a full cannulation was not able to be performed. The patient's pain has now gone. No nausea or vomiting. He had similar symptoms in the past. No previous known history of gallstones, jaundice, and pancreatitis. PAST MEDICAL HISTORY: Includes non-small cell cancer of the lung status post chemotherapy, which he finished in 2018 on Keytruda. PAST SURGICAL HISTORY: Knee surgery. SOCIAL HISTORY: Forty pack-year smoker, quit 5 months ago. No alcohol or other drugs. REVIEW OF SYSTEMS: Ten system review of systems otherwise negative as prescribed above. ALLERGIES: NO KNOWN DRUG ALLERGIES. MEDICATIONS: Medicines; 1. Long-acting morphine. 2. Zofran. 3. Keytruda. PHYSICAL EXAMINATION: HEENT: Sclerae anicteric. Oropharynx clear. NECK: No lymphadenopathy. CHEST: Clear. HEART: Regular rate and rhythm ABDOMEN: Soft, tender in the right upper quadrant. No guarding or rebound. No abdominal hernias. EXTREMITIES: No ischemia or edema to extremities. LABORATORY DATA: Sodium 139, potassium 3.7, creatinine 1.11, bilirubin is down to 2.5. Lipase was 7 on admission. White count is 6, hemoglobin is 10, and platelet count is 247. Ultrasound shows gallstone, evidence of cholecystitis. ASSESSMENT: Choledocholithiasis may be passed stone, cholecystitis. PLAN: Laparoscopic cholecystectomy with intraoperative cholangiogram. Risks, benefits, and alternatives were discussed, he gives consent, we will do this today. Job ID: [id number]
[2018-10-03] MEDS ORDERED: Ondansetron HCl/PF 4 MG/2 ML Vial IVP PRN (14:25)
[2018-10-03] MEDS ORDERED: Promethazine HCl 25 MG/ML VIAL IM PRN ×2 (14:25→16:11)
[2018-10-03] MEDS ORDERED: Promethazine HCl 25 MG/ML VIAL SLOW IVP PRN (14:25)
[2018-10-03] MEDS ORDERED: Promethazine HCl 25 MG/ML VIAL ONE (15:11)
--- NOTE | 2018-10-03 15:56 | RAD ---
INTRAOPERATIVE CHOLANGIOGRAM: 10/03/2018 HISTORY: Cholecystectomy. Right upper quadrant pain with cholelithiasis and gallbladder wall thickening. TECHNIQUE: Three intraoperative fluoroscopic images from ERCP are submitted for interpretation. FINDINGS: The cystic duct is cannulated. There is opacification of the common duct, as well as a portion of th e intrahepatic bile ducts and the more distal aspect of the pancreatic duct. There is evidence of fr ee spill of contrast into the duodenum. There is suggestion of a small filling defect within the mid portion of the common duct, but a surgical instrument does overly this region, limiting adequate maría elena luation. This could be related to an air bubble or a filling defect secondary to calculus. TOTAL FLUOROSCOPY TIME: 34.9 seconds. TOTAL DOSE: 6.18 mGy. IMPRESSION: 1. Filling defect, mid portion, common duct, partially obscured due to overlying surgical instrument . This could be related to air bubble versus a calculus within the common duct. Correlation with in traoperative findings is recommended. 2. No intrahepatic or extrahepatic biliary ductal dilatation is seen, and there is free spill of con trast into the duodenum. POS: TESSA
[2018-10-03] MEDS ORDERED: HYDROcodone/Acetaminophen 7.5/325 mg Tablet PO PRN ×2 (16:11)
[2018-10-03] MEDS ORDERED: Dextrose 50% Abboject 50 ML SYRINGE SLOW IVP PRN (16:11)
[2018-10-03] MEDS ORDERED: Ondansetron PF 4 MG/2 ML Vial IVP PRN (16:11)
[2018-10-03] MEDS ORDERED: Mag-Al 1200 mg/1200 mg/30 ML UDCUP PO PRN (16:11)
[2018-10-03] MEDS ORDERED: Calcium Carbonate 500 MG ChewTAB PO PRN (16:11)
[2018-10-03] MEDS ORDERED: traMADol HCl 50 MG TAB PO PRN ×2 (16:11)
[2018-10-03] MEDS ORDERED: hydrALAZINE 20 MG/ML VIAL SLOW IVP PRN (16:11)
[2018-10-03] MEDS ORDERED: Dextrose 5% in Water 1,000 ML IV PRN (16:11)
[2018-10-03] MEDS: Morphine 2 MG/ML SYRINGE SLOW IVP PRN ×2 (16:33→20:49)
[2018-10-03] MEDS: Sodium Chloride 0.9% 1,000 ML IV SCH (16:39)
[2018-10-03] MEDS: Dextrose 5 % And 0.9 % NaCl 1,000 ML IV SCH (18:39)
[2018-10-03] MEDS: Mirtazapine 30 MG TAB PO SCH (20:52)
[2018-10-03] MEDS: Famotidine/PF 20 mg/2ml Vial SLOW IVP SCH (20:56)
[2018-10-03] MEDS: Famotidine 20 MG TAB PO SCH (20:56)
--- NOTE | 2018-10-04 00:03 | PRG ---
DATE OF SERVICE: 10/03/2018 REASON FOR CONSULTATION: Possible choledocholithiasis, elevated LFTs, right upper quadrant abdominal pain. SUBJECTIVE: The patient underwent ERCP yesterday with inability to cannulate the ampulla, but noted to have no filling defects upon instillation of contrast within the common bile duct, drainage of the common bile duct was seen at the end of the procedure with bile coming from the ampulla well with no associated debris or stones. Today, the patient underwent laparoscopic cholecystectomy and did well and is experiencing some pain in the postoperative period, but currently managed with current pain control regimen. Currently denies any nausea, vomiting, fevers, chills, GI bleeding. PHYSICAL EXAMINATION: VITAL SIGNS: Temperature 97.5, pulse 66, blood pressure 127/76, respiratory rate 16, saturating 93% on room air. GENERAL: The patient is lying in bed, in no acute distress. Alert and oriented x4. CARDIOVASCULAR: Regular rate and rhythm. RESPIRATORY: Clear to auscultation bilaterally. ABDOMEN: Normoactive bowel sounds. Soft, nondistended. Tenderness to palpation in the right upper quadrant as well as along the surgical trocar sites with the surgical trocar sites with mild skin erythema, but no evidence of wound breakdown or purulence. EXTREMITIES: No cyanosis, clubbing, or edema. LABORATORY DATA: CBC with a white blood cell count of 6.2, hemoglobin 10.7, hematocrit 31.3, platelets 247. Chemistry with a sodium of 139, potassium 3.7, chloride 111, CO2 of 21, BUN 13, creatinine 1.11, glucose 99, AST 156, ALT 388, alkaline phosphatase 510, total bilirubin 2.5. IMAGING DATA: Per discussion with Dr. Farmer earlier today, an intraoperative cholangiogram was performed during laparoscopic cholecystectomy which did not show any evidence of filling defects in the common bile duct. ASSESSMENT AND PLAN: The patient is a 63-year-old male with past medical history of non-small cell lung cancer, status post chemotherapy, presenting with an elevated LFT pattern consistent with choledocholithiasis and cholecystitis. Choledocholithiasis. The patient is presenting with a history of intermittent right upper quadrant/midepigastric abdominal pain that has been present for the last 3 to 4 months, but had not been associated with any elevated LFTs during that time. He had been seen by the GI service previously with concern for biliary/gallbladder type pathology. However, on this admission, he was noted to have significantly elevated LFTs and obstructive-type pattern concerning for choledocholithiasis. He underwent ERCP on October 02, 2018, with inability to cannulate the ampulla successfully, but during the ERCP was able to adequately visualize the common bile duct with instillation of contrast and did not show any evidence of filling defects and good drainage of bile at the end of the procedure. He subsequently underwent a cholecystectomy on October 03, 2018, that showed cholecystitis, but no evidence of choledocholithiasis on intraoperative cholangiogram. Given that his LFT pattern was downtrending this morning and there is a higher likelihood that he may have had choledocholithiasis and passing of stone that was not present on either ERCP or intraoperative cholangiogram. Given that he is now status post cholecystectomy, the likelihood of further episodes of choledocholithiasis is lower, but will be monitoring in the future if he experiences any increased right upper quadrant abdominal pain again. RECOMMENDATIONS: 1. Would continue to trend LFTs daily for worsening of his transaminitis, although I would expect some mild elevation over the next 24 to 48 hours given his recent surgery. 2. If the patient does experience increased LFTs in the future, would then repeat an ERCP for possible choledocholithiasis. 3. Pain control per primary team with followup with Dr. Farmer as an outpatient in the postoperative setting. We will sign off at this time. Please call with any additional questions. Job ID: [id number]
[2018-10-04] MEDS: Morphine 4 MG/ML VIAL SLOW IVP PRN ×2 (03:19→10:47)
[2018-10-04] MEDS: Sodium Chloride 0.9% 1,000 ML IV SCH (03:33)
[2018-10-04] MEDS: Piperacillin/Tazobactam 2.25 GM in Sodium Chloride 0.9% 100 ML IVPB SCH ×2 (03:35→12:01)
[2018-10-04] MEDS: Famotidine/PF 20 mg/2ml Vial SLOW IVP SCH (08:24)
[2018-10-04] MEDS: Famotidine 20 MG TAB PO SCH (08:26)
[2018-10-04 08:45] VITALS: BP 113/59; TEMP 97.6
--- NOTE | 2018-10-04 09:00 | PDOC.PN ---
- Subjective Encounter Start Date: 10/04/18 Encounter Start Time: 12:10 Subjective: Patient doing well postoperatively. No abdominal pain, just a little -: sore at the drain site. No N/V. Eating well. Passing gas. - Objective Resuscitation Status - Order Detail: 10/01/18 17:17 Resuscitation Status Routine Resuscitation Status: FULL: Full Resuscitation MAR Reviewed: Yes Vital Signs & Weight: Vital Signs (12 hours) Temp Pulse Resp BP BP Pulse Ox 10/04/18 08:30 97.6 F 72 18 113/59 L 98 10/04/18 03:29 74 18 94 L 10/04/18 03:26 97.9 F 74 20 108/58 L 86 L Weight Weight 151 lb 9 oz I&O: 10/03/18 10/04/18 10/05/18 06:59 06:59 06:59 Intake Total 809 825 Output Total 300 Balance 809 525 Result Diagrams: 10/03/18 03:58 10/03/18 03:58 Phys Exam - Physical Examination Constitutional: NAD HEENT: moist MMs Respiratory: no wheezing, no rales, no rhonchi Cardiovascular: RRR Gastrointestinal: soft, positive bowel sounds drain in place Neurological: non-focal, moves all 4 limbs Psychiatric: normal affect, A&O x 3 Dx/Plan (1) Abdominal pain Code(s): R10.9 - UNSPECIFIED ABDOMINAL PAIN Status: Acute Comment: likely due to gallstones, possible acute on chronic cholecystitis, s/p cholecystectomy and intraoperative cholangiogram without filling defects 10/03/2018 (2) Elevated liver enzymes Code(s): R74.8 - ABNORMAL LEVELS OF OTHER SERUM ENZYMES Status: Acute Comment: trend enzymes (3) Non-small cell cancer of right lung Code(s): C34.91 - MALIGNANT NEOPLASM OF UNSP PART OF RIGHT BRONCHUS OR LUNG Status: Chronic Comment: on Keytruda (4) Cholestatic jaundice Code(s): R17 - UNSPECIFIED JAUNDICE Status: Acute Comment: improving, likely passed a stone - Plan cont current plan of care, continue antibiotics, PT/OT, DVT proph w/SCDs discharge later today if ok with surgery, followup LFTs as an outpatient * . - Discharge Day Encounter end time: 12:20
--- NOTE | 2018-10-04 13:34 | PRG ---
DATE OF SERVICE: 10/04/2018 SUBJECTIVE: Mr. Marc is doing well. Drain output is minimal, serosanguineous. OBJECTIVE: VITAL SIGNS: He is afebrile. Vital signs are stable. ASSESSMENT: Postop day #1, laparoscopic cholecystectomy with drain placement for cholecystitis. PLAN: Discharge home today. Follow up with me in the office on Tuesday. Job ID: [id number]
--- NOTE | 2018-10-04 16:48 | DIS ---
DATE OF ADMISSION: 10/02/2018 DATE OF DISCHARGE: 10/04/2018 PRIMARY CARE PHYSICIAN: Stefano Snyder DO REASON FOR ADMISSION: Abdominal pain with elevated liver function tests. DISCHARGE DIAGNOSES: 1. Acute cholecystitis, status post cholecystectomy. 2. Cholestatic jaundice, likely secondary to gallstones. 3. Non-small cell cancer of the right lung on Keytruda. PROCEDURES: 1. Right upper quadrant ultrasound showing cholelithiasis and gallbladder sludge with thickening of the gallbladder wall, possibly acute or chronic cholecystitis. There is no pericholecystic fluid was visualized. 2. Endoscopic retrograde cholangiopancreatography performed by Dr. Chen showing a normal esophagogastroduodenoscopy, but incomplete cannulation of the common bile duct and injection of dye into the common bile duct showing dilatation of about 1 cm. 3. Laparoscopic cholecystectomy with intraoperative cholangiogram showing no evidence of stones in the common bile duct. CONSULTATIONS: 1. Gastroenterology, Dr. Chen. 2. General Surgery, Dr. Farmer. PERTINENT LABORATORY: Bilirubin was 1.7 on admission, peaked at 3.2, down to 2.5 prior to surgery. AST peaked 800 down to 100 before surgery and ALT peaked at 600 down to 300 before surgery. Coagulation profile was normal. SUMMARY OF HOSPITAL COURSE: This is a 63-year-old white male with a history of non-small cell carcinoma of the lung, status post chemotherapy, came in complaining of abdominal pain. He reported the abdominal pain on and off for couple of months, sometimes seem to be after he ate food. The pain is a burning-like sensation. The patient came in with a return of this pain, severe at 4 o'clock in the morning. In the emergency room, he was noted to have elevated liver function tests and an ultrasound of the right upper quadrant that is above. The patient was admitted to the hospital. Dr. Chen was consulted for Gastroenterology. ERCP was attempted, unable to cannulate the sphincter of Oddi, so Dr. Farmer was consulted for General Surgery and he did a laparoscopic cholecystectomy. Intraoperative cholangiogram did not show any retained stones in the biliary tree. The patient was asymptomatic on the day of discharge, had no more abdominal pain. He did have a little soreness at the surgical site with normal postoperative soreness. On the day of discharge, Dr. Farmer evaluated the patient and then discharged him home to follow up in his clinic and have the drain removed next Tuesday. DISCHARGE MANAGEMENT: Discharged home. FOLLOWUP: Follow up with Dr. Farmer as directed. ACTIVITY: As tolerated. DIET: Regular diet. MEDICATIONS: Resume all home medications. Job ID: [id number]
--- NOTE | 2018-10-05 15:27 | OP ---
DATE OF PROCEDURE: 10/03/2018 PREOPERATIVE DIAGNOSES: Acute cholecystitis, elevated liver function tests. POSTOPERATIVE DIAGNOSES: Acute cholecystitis, elevated liver function tests. PROCEDURE PERFORMED: Laparoscopic cholecystectomy with intraoperative cholangiogram. ANESTHESIA: General. ESTIMATED BLOOD LOSS: Minimal. COMPLICATIONS: None. SPECIMENS: Gallbladder. FINDINGS: Normal cholangiogram. DESCRIPTION OF PROCEDURE: The patient was taken to the operating room and laid supine on the operating room table. After general anesthetic was obtained, the abdomen was shaved, prepped and draped in a sterile fashion. A curved incision was made below the umbilicus. Cautery was used to dissect down to and score the fascia. Abdominal cavity was entered bluntly using a Sheree clamp. Holding stitch of PDS was placed on each side the fascia. Samuel trocar was placed. High-flow pneumoperitoneum was obtained. Upper midline 5 mm port and 2 right upper quadrant 5 mm ports were placed under direct visualization. The gallbladder was retracted from the gallbladder fossa. The peritoneum was opened anteriorly and posteriorly. The critical view triangle was seen showing only the cystic artery and cystic duct branching medial to lateral, no other branching structures. A clip was placed on the cystic duct. A small ductotomy was made just proximal to that. A cholangiocatheter was brought in through a separate stab incision, placed in the cystic duct and a cholangiogram was performed, which shows good contrast flow into the duodenum, right and left hepatic duct system without obstruction. Cholangiocatheter was removed. The cystic duct was so large. It was ligated using a PDS endo-loop. The gallbladder was dissected out of the gallbladder fossa using cautery. There was significant inflammatory change in this area secondary to his acute cholecystitis. The gallbladder was placed in an EndoCatch bag and brought out through the Samuel. There was no bleeding in the liver bed. A 19 round drain brought out through the right upper quadrant incision, left in the gallbladder fossa, sewn in place using 2-0 silk suture. All port sites were infiltrated using local anesthetic. All ports were removed under camera visualization. Pneumoperitoneum was let down. PDS was used to close the fascial defect below the umbilicus. All incisions were irrigated and closed using 4-0 Monocryl and Dermabond. The patient was sent to Recovery in stable condition. All instrument counts, needle counts, and lap counts are correct. Job ID: [id number]
== END 2018-10-04 14:34 | disposition home or self-care (01) | DRG 418 ==
LOC: ERS 13:25 → ONC 17:43 → OBSVTOIN 10-02 10:56
PROVIDERS: ADMIT Internal Medicine; ATTEND Internal Medicine
PROC: 0FJB8ZZ Inspection of Hepatobiliary Duct, Via Natural or Artificial Opening Endoscopic (ICD-10-PCS; 2018-10-02)
PROC: 0FT44ZZ Resection of Gallbladder, Percutaneous Endoscopic Approach (ICD-10-PCS; principal; 2018-10-03)
PROC: BF14YZZ Fluoroscopy of Gallbladder, Bile Ducts and Pancreatic Ducts using Other Contrast (ICD-10-PCS; 2018-10-03)
DX: K80.40 Calculus of bile duct with cholecystitis, unspecified, without obstruction (principal); C34.91 Malignant neoplasm of unspecified part of right bronchus or lung; R17 Unspecified jaundice; E03.9 Hypothyroidism, unspecified; Z92.21 Personal history of antineoplastic chemotherapy; Z90.89 Acquired absence of other organs; Z87.891 Personal history of nicotine dependence
CPT/HCPCS: 36415; 47532; 74330; 76705; 80053; 80074; 80307; 81003; 81015; 83690; 85025; 85610; 85730; 88304; 96361; 96374; 96375; C9113; J0670; J1100; J1650; J1885; J2001; J2270; J2405; J2543; J2550; J2704; J2765; J3010; J3490; J7050; Q9961; S0028

== ENCOUNTER 2018-10-19 10:46 | Day surgery (SDC) | payer MEDICARE, OTHER ==
[~2018-10-19 10:46] MED LIST: Pembrolizumab 200 MG in Sodium Chloride 0.9% 250 ML 250 ML IV SCH
[2018-10-19] MEDS ORDERED: Sodium Chloride 0.9% 20 ML ONE (10:48)
[2018-10-19 11:17] VITALS: BP 113/65; TEMP 97.6
== END 2018-10-19 13:28 | disposition home or self-care (01) ==
LOC: ONC/OP 10:46
PROVIDERS: ATTEND Internal Medicine Hematology & Oncology
DX: Z51.12 Encounter for antineoplastic immunotherapy (principal); C34.11 Malignant neoplasm of upper lobe, right bronchus or lung; E03.2 Hypothyroidism due to medicaments and other exogenous substances
CPT/HCPCS: 80053; 82248; 83615; 84100; 84443; 84550; 96413

== ENCOUNTER 2018-11-09 10:36 | Day surgery (SDC) | payer MEDICARE, OTHER ==
[2018-11-09] MEDS ORDERED: Sodium Chloride 0.9% 30 ML ONE (10:52)
== END 2018-11-09 12:33 | disposition home or self-care (01) ==
LOC: ONC/OP 10:36
PROVIDERS: ATTEND Internal Medicine Hematology & Oncology
DX: Z51.12 Encounter for antineoplastic immunotherapy (principal); C34.11 Malignant neoplasm of upper lobe, right bronchus or lung; E03.2 Hypothyroidism due to medicaments and other exogenous substances; Z79.891 Long term (current) use of opiate analgesic; Z79.899 Other long term (current) drug therapy
CPT/HCPCS: 36415; 80053; 82248; 83615; 84100; 84443; 84550; 96413

== ENCOUNTER 2018-12-04 10:10 | Day surgery (SDC) | payer MEDICARE, OTHER ==
[2018-12-04 11:53] VITALS: BP 119/71; TEMP 96.7
== END 2018-12-04 15:39 | disposition home or self-care (01) ==
LOC: ONC/OP 10:10
PROVIDERS: ATTEND Internal Medicine Hematology & Oncology
DX: Z51.12 Encounter for antineoplastic immunotherapy (principal); C34.11 Malignant neoplasm of upper lobe, right bronchus or lung; E03.2 Hypothyroidism due to medicaments and other exogenous substances
CPT/HCPCS: 80053; 82248; 83615; 84100; 84443; 84550; 96413

== ENCOUNTER 2018-12-19 09:06 | Outpatient (CLI) | payer MEDICARE, OTHER ==
--- NOTE | 2018-12-19 09:54 | CT ---
CT Chest W Con: 12/19/2018 12:00 AM CLINICAL INDICATION: Lung cancer. COMPARISON: CT of the thorax dated November 08, 2017 and September 05, 2018. FINDINGS: Lung and Large Airways: The right upper lobe lung mass has decreased in size from the prior exam. The largest residual mass in the right upper lobe now measures 5.6 x 3.8 cm were previously measured 6.1 x 4.2 cm. The reticular nodularity involving the anterior segment of the right upper lobe has als o improved. No new suspicious pulmonary nodule is identified. There is a small suspected intrapulmonary lymph node within the anterior lateral segment of the left lower lobe is stable the so ft tissue thickening surrounding the right upper lobe bronchus as well as portions of the right middle lobe is relatively stable. Pleura: within normal limits. Vessels: There are mild vascular calcifications of the aorta there are mild vascular calcifications o f the coronary arteries.. Heart: normal size. No pericardial effusion. Mediastinum and Dunia: The subcarinal lymph node previously measuring 9.6 mm now measures 8.5 mm previ ously enlarged anterior mediastinal lymph node measuring 8.5 mm on the comparison examination dated November 08, 2017, now measures 5 mm. Chest Wall and Lower Neck: within normal limits. Upper Abdomen: within normal limits. Bones: within normal limits. IMPRESSION: Findings consistent with response to therapy. The large right upper lobe lung mass has decreased in s ize. The areas of residual reticular nodularity suspicious for right upper lobe satellite lesions has also decreased in prominence. There is improvement in the mediastinal lymphadenopathy. No new steffany picious pulmonary nodules are demonstrated. Recommendations: Continued follow-up is recommended.
[2018-12-19] MEDS ORDERED: ISOVUE-370 76%-LOCM 1 ML ONE (13:01)
== END 2018-12-19 09:07 | disposition home or self-care (01) ==
LOC: BICCT 09:06
PROVIDERS: ATTEND Internal Medicine Hematology & Oncology
DX: C34.11 Malignant neoplasm of upper lobe, right bronchus or lung (principal); E03.2 Hypothyroidism due to medicaments and other exogenous substances; J98.4 Other disorders of lung; R59.0 Localized enlarged lymph nodes
CPT/HCPCS: 71260; Q9966

== ENCOUNTER 2018-12-28 10:14 | Day surgery (SDC) | payer MEDICARE, OTHER ==
[2018-12-28 10:30] VITALS: BP 137/76; TEMP 97.6
[2018-12-28] MEDS ORDERED: Sodium Chloride 0.9% 20 ML ONE (11:46)
== END 2018-12-28 12:05 | disposition home or self-care (01) ==
LOC: ONC/OP 10:14
PROVIDERS: ATTEND Internal Medicine Hematology & Oncology
DX: Z51.12 Encounter for antineoplastic immunotherapy (principal); C34.11 Malignant neoplasm of upper lobe, right bronchus or lung; E03.2 Hypothyroidism due to medicaments and other exogenous substances; Z79.891 Long term (current) use of opiate analgesic; Z79.899 Other long term (current) drug therapy
CPT/HCPCS: 36415; 80053; 82248; 83615; 84100; 84443; 84550; 96413

== ENCOUNTER 2019-01-18 10:37 | Day surgery (SDC) | payer MEDICARE, OTHER ==
[2019-01-18 11:00] VITALS: BP 130/64; TEMP 97.8
== END 2019-01-18 12:43 | disposition home or self-care (01) ==
LOC: ONC/OP 10:37
PROVIDERS: ATTEND Internal Medicine Hematology & Oncology
DX: Z51.11 Encounter for antineoplastic chemotherapy (principal); C34.11 Malignant neoplasm of upper lobe, right bronchus or lung; E03.2 Hypothyroidism due to medicaments and other exogenous substances
CPT/HCPCS: 36415; 80053; 82248; 83615; 84100; 84443; 84550; 96413

== ENCOUNTER 2019-02-08 10:53 | Day surgery (SDC) | payer MEDICARE, OTHER ==
[2019-02-08] MEDS ORDERED: Sodium Chloride 0.9% 20 ML ONE (10:58)
[2019-02-08 11:19] VITALS: BP 134/72; TEMP 97.6
== END 2019-02-08 12:59 | disposition home or self-care (01) ==
LOC: ONC/OP 10:53
PROVIDERS: ATTEND Internal Medicine Hematology & Oncology
DX: Z51.12 Encounter for antineoplastic immunotherapy (principal); C34.11 Malignant neoplasm of upper lobe, right bronchus or lung; E03.2 Hypothyroidism due to medicaments and other exogenous substances
CPT/HCPCS: 36415; 80053; 82248; 83615; 84100; 84443; 84550; 96413; J7050; J9271

== ENCOUNTER 2019-03-01 11:00 | Day surgery (SDC) | payer MEDICARE, OTHER ==
[2019-03-01] MEDS ORDERED: Sodium Chloride 0.9% 20 ML ONE (11:02)
[2019-03-01 14:00] VITALS: BP 123/66; TEMP 97.8
== END 2019-03-01 14:01 | disposition home or self-care (01) ==
LOC: ONC/OP 11:00
PROVIDERS: ATTEND Internal Medicine Hematology & Oncology
DX: Z51.12 Encounter for antineoplastic immunotherapy (principal); C34.11 Malignant neoplasm of upper lobe, right bronchus or lung; E03.2 Hypothyroidism due to medicaments and other exogenous substances
CPT/HCPCS: 80053; 82248; 83615; 84100; 84443; 84550; 96413; J7050; J9271

== ENCOUNTER 2019-03-19 08:27 | Outpatient (CLI) | payer MEDICARE, OTHER ==
--- NOTE | 2019-03-19 10:44 | CT ---
CT chest with IV contrast HISTORY: Non-small cell lung cancer. Restaging. COMPARISON: 12/19/2018 and 06/26/2018. FINDINGS: Lungs remain hyperinflated. Mass, peripheral atelectasis and consolidation of the right upp er lobe are similar in appearance to the previous exam. There are now multifocal peripheral predominantly wedge shaped but somewhat spiculated areas of conso lidation involving each left lobe and the right lower lobe, extending to the pleural surface.. A small such focus at the anterior-inferior margin of the right middle lobe. Multifocal peribronchial e xtension of spiculation and consolidation involve primarily the right lower lobe. Scattered tiny nodules. Subcarinal lymph node has increased to 1.5 cm short axis diameter (previously 0.8 cm. Additional lymp h nodes are upper limits of normal in size are scattered throughout the mediastinum. Within the visualized upper abdomen, adrenal glands are unremarkable. IMPRESSION: While the primary abnormality of the right upper lobe is stable in CT appearance, there has been dras tic overall worsening of disease with multifocal peripheral wedge-shaped pleural-based consolidation and peribronchial involvement of the right lower lobe. Consider lymphangitic spread. Significant enlargement of the subcarinal lymph node. Findings were called to Dr. Hutchison at 1029 hours. Code CR.
[2019-03-19] MEDS ORDERED: ISOVUE-370 76%-LOCM 1 ML ONE (14:35)
== END 2019-03-19 08:28 | disposition home or self-care (01) ==
LOC: BICCT 08:27
PROVIDERS: ATTEND Internal Medicine Hematology & Oncology
DX: C34.90 Malignant neoplasm of unspecified part of unspecified bronchus or lung (principal); R59.0 Localized enlarged lymph nodes
CPT/HCPCS: 71260; Q9966

== ENCOUNTER 2019-04-03 10:21 | Outpatient (CLI) | payer MEDICARE, OTHER ==
[2019-04-03] MEDS ORDERED: Iopamidol 370 76% 100 ML VIAL ONE (10:50)
--- NOTE | 2019-04-03 11:42 | CT ---
Exam: CHEST CT WITH CONTRAST: COMPARISON: 03/19/2019. HISTORY: Lung cancer. Evaluate for progression. Patient has undergone antibiotics and steroids. Evalu ate for response. FINDINGS: Mediastinum: No mass, lymphadenopathy or hematoma. Heart size is within normal limits. No pericardial fluid. The thoracic aorta and upper abdominal aorta have a normal caliber. No periaortic fat stranding Gallbladder is surgically absent. Visualized upper abdominal solid viscera is unremarkable. Trachea and central bronchi are patent. Chronic interstitial changes of the lung parenchyma. There is consolidation with air bronchogram in t he right upper lobe measuring 5.5 x 3.3 cm. Previously, this area of consolidation measured 5.8 x 3.8 cm. There are additional groundglass opacities that have a peribronchial distribution. These opac ities appear to to be stable when compared to the previous examination. There was a previous 2 cm opacity that currently measures 2 cm. There is an improved opacity in the anterior left upper lobe wi th air bronchograms, measuring 5.0 x 2.6 cm. Previously, this opacity measured 4.0 x 5.0 cm. There are additional scattered opacities in the left upper lobe and left lower lobe. The majority of these opacities have decreased. Previously noted opacity along the lateral aspect of the left lower lobe has decreased in size, currently measuring 1.4 x 0.7 cm (previous the measuring 2.0 x 0.9 cm). Stable 0.7 cm nodule in the left lung base. There are no osteoblastic or osteolytic lesions IMPRESSION: Findings suggesting partial response to therapy. There are residual opacities throughout the lung par enchyma. The possibility of neoplasm involving opacities of the left and right upper lobe cannot be excluded. Additional groundglass opacities with a peribronchial distribution may represent reactive c hange/post treatment change. Peribronchial spread of tumor in the right lower lobe cannot be excluded. Transcribed Date/Time: 04/03/2019 1:01 PM
--- NOTE | 2019-04-03 14:16 | PET ---
EXAM: PET/CT HISTORY: Lung cancer evaluate disease burden TECHNIQUE: PET scanning with CT attenuation correction was performed from the base of the brain to the proximal thighs following the intravenous administration of 12.69. millicuries [id number]. COMPARISON: Prior PET/CT dated December 20, [address] of the thorax with contrast dated April 03, 2019 a nd March 19, 2019. FINDINGS: Biodistribution:The biodistribution for the exam appears acceptable. Head and neck: There is appropriate background activity within the brain. No hypermetabolic lymphaden opathy or masses identified. Thorax: The hypermetabolic mass involving the posterior segment of the right upper lobe and right sup rahilar region is decrease in size and hypermetabolic uptake. The peak SUV activity associated with this primary lesion was 4.14 with a mean activity of 3.38. Previously the peak activity on the prior PET scan involving this lesion was 26.29 with a mean activity of 23.94. Since the prior PET examination there is been interval development of a pleural-based region of consolidation involving t he anterior segment of the left upper lobe. There is hypermetabolic activity associated with this collection now measuring a peak activity of 4.9 and a mean activity of 4.25. No additional hypermetab olic mass is evident. The peribronchial nodular opacities involving the lower lobes demonstrate no hypermetabolic uptake. The activity associated with an index lesion in the right lower lobe is a peak activity 1.69. The pleural-based nodular opacity within the anterior lateral segment of the left lower lobe demonstrates no associated hypermetabolic uptake. No hypermetabolic pleural effusion is ev ident. No hypermetabolic lymphadenopathy is evident. Abdomen and pelvis: There is expected background activity within the GI and systems. No hypermetab olic mass, lymphadenopathy or ascites is present. Osseous structures and skin: No hypermetabolic skin or osseous lesion is identified. IMPRESSION: Abnormal PET/CT 1. There are findings consistent with response to therapy with decrease in size and hypermetabolic up take involving the previously seen right upper lobe mass. 2. The pleural-based region of wedge like consolidation involving the anterior left upper lobe demons trates hypermetabolic uptake of of 4.95 and is suspicious for metastatic disease. The smaller peribronchial nodules involving the right lower lobe and left lower lobe demonstrates no associated h ypermetabolic uptake. The pleural-based nodule involving the anterior lateral left lower lobe demonstrates no hypermetabolic uptake. Continued CT follow-up of these lesions is recommended. 3. No evidence of hypermetabolic metastatic disease within the abdomen, pelvis, skin and osseous stru ctures.
== END 2019-04-03 10:22 | disposition home or self-care (01) ==
LOC: CT 10:21
PROVIDERS: ATTEND Internal Medicine Hematology & Oncology
DX: C34.90 Malignant neoplasm of unspecified part of unspecified bronchus or lung (principal); E03.2 Hypothyroidism due to medicaments and other exogenous substances; R91.8 Other nonspecific abnormal finding of lung field
CPT/HCPCS: 71260; 78815; A9552; Q9967

== ENCOUNTER 2019-04-12 09:05 | Day surgery (SDC) | payer MEDICARE, OTHER ==
[2019-04-12] MEDS ORDERED: Sodium Chloride 0.9% 20 ML ONE (09:08)
[2019-04-12 09:24] VITALS: BP 162/92
== END 2019-04-12 10:29 | disposition home or self-care (01) ==
LOC: ONC/OP 09:05
PROVIDERS: ATTEND Internal Medicine Hematology & Oncology
DX: Z51.12 Encounter for antineoplastic immunotherapy (principal); C34.11 Malignant neoplasm of upper lobe, right bronchus or lung; E03.2 Hypothyroidism due to medicaments and other exogenous substances
CPT/HCPCS: 96413; J7050; J9271

== ENCOUNTER 2019-05-10 09:26 | Day surgery (SDC) | payer MEDICARE, OTHER ==
[2019-05-10 12:33] VITALS: BP 150/75; TEMP 97.8
== END 2019-05-10 12:18 | disposition home or self-care (01) ==
LOC: ONC/OP 09:26
PROVIDERS: ATTEND Internal Medicine Hematology & Oncology
DX: Z51.12 Encounter for antineoplastic immunotherapy (principal); C34.11 Malignant neoplasm of upper lobe, right bronchus or lung
CPT/HCPCS: 36415; 80053; 82248; 83615; 84100; 84443; 84550; 96413; J7050; J9271

== ENCOUNTER 2019-05-14 16:20 | Inpatient (IN) | payer MEDICARE, OTHER ==
[~2019-05-14 16:20] MED LIST changes: +ISOVUE-370 76%-LOCM 1 ML ONE; -Pembrolizumab 200 MG in Sodium Chloride 0.9% 250 ML 250 ML IV SCH
[2019-05-14 16:51] LABS: #Basophils 0.1 thou/uL (0.0-0.2); #Eosinphils 0.2 thou/uL (0.0-0.7); #Lymphocytes 1.8 thou/uL (1.20-3.40); #Monocytes 1.6 thou/uL (0.11-0.59); #Neutrophils 8.2 thou/uL (1.40-6.50); %Basophils 0.4 % (0.0-1.0); %Eosinophils 1.8 % (0.0-10.0); %Lymphocytes 15.1 % (21.0-51.0); %Monocytes 13.5 % (0.0-10.0); %Neutrophils 69.1 % (42.0-75.0); Mean Corpuscular HGB CONC 34.5 g/dL (32.0-36.0); Mean Corpuscular Hemoglobin 29.8 pg (27.0-31.0); Mean Corpuscular Volume 86.3 fL (78.0-98.0); Mean Platelet Volume 6.3 fL (7.4-10.4); Platelet Count 538 thou/uL (130-400); RBC Distribution Width 13.3 % (11.5-14.5); Red Blood Cell (RBC) Count 4.71 mill/uL (4.70-6.10); White Blood Cell (WBC) Count 11.9 thou/uL (4.8-10.8)
[2019-05-14 17:22] LABS: ALT (SGPT) 26 U/L (8-55); AST (SGOT) 20 U/L (5-34); Albumin 3.8 g/dL (3.4-4.8); Alkaline Phosphatase 185 U/L (40-110); Anion Gap 17 mmol/L (10-20); BUN (Urea Nitrogen) 16 mg/dL (8.4-25.7); Bilirubin, Total 0.6 mg/dL (0.2-1.2); CK (CPK) 50 U/L (30-200); Calc. Creatinine Clearance 0 mL/min (70-130); Calcium 9.4 mg/dL (7.8-10.44); Carbon Dioxide 14 mmol/L (23-31); Chloride 108 mmol/L (98-107); Estimated GFR-MDRD 77; Globulin 3.6 g/dL (2.4-3.5); Glucose 87 mg/dL (80-115); Potassium 3.8 mmol/L (3.5-5.1); Protein, Total 7.4 g/dL (5.8-8.1); Sodium 135 mmol/L (136-145)
[2019-05-14] MEDS ORDERED: Ondansetron PF 4 MG/2 ML Vial ONE (17:33)
--- NOTE | 2019-05-14 19:08 | CT ---
CT ANGIOGRAM THORAX WITH CONTRAST: (CTA pulmonary angiogram) DATE: 05/14/2019 HISTORY: 63-year-old male with right upper lobe lung cancer presents with hypoxemia. COMPARISON: 04/03/[address] TECHNIQUE: IV injection of iodinated contrast. Scan acquisition timing attempted to coincide with iodinated contrast bolus reaching maximal density in pulmonary arteries. 3-D MIP reconstructions. FINDINGS: There is no evidence of pulmonary thromboembolism. No thoracic aortic aneurysm or dissection. No card iomegaly. No pleural effusion or pneumothorax. The right upper lobe lung mass has grown to current dimensions of 6 x 4.5 x 4 cm. The consolidation at the anterior segment of left upper lobe broadly abutting the anterior pleural ramos rface, containing extensive air bronchogram, may represent pneumonia. It probably has not significantly changed in size. There is a new finding of mild mediastinal lymphadenopathy. There is i nterval worsening of peribronchial thickening throughout right lower lobe bronchus and all of its branches, which is now moderate to severe. This also has now appeared in the contralateral left lower lobe bronchi. The peribronchial thickening is surrounded by peribronchial infiltrates which are alveolar on the right and interstitial on the left. This is also true to a lesser degree in the bilat eral upper lobes, worsening since previous study. IMPRESSION: 1. No evidence of pulmonary thromboembolic wasn't. 2) no significant interval change in the anterior segment left upper lobe anterior pleural based cons olidation which may represent pneumonia. 3) interval growth of right upper lobe pulmonary lesion presumably representing lung cancer. 4) interval worsening of peribronchial interstitial infiltrates in the bilateral lower lobes, upper l obes, and right middle lobe, greatest in the right lower lobe, where the peribronchial infiltrates are alveolar infiltrates. Presumably, this represents peribronchiolar pneumonitis infection, although exact etiology is uncertain.
[2019-05-14] MEDS ORDERED: methylPREDNISolone Sod Succ/PF 125 MG/2 ML VIAL ONE (21:45)
[2019-05-14 22:02] LABS: Bilirubin Negative (Negative); Blood, Urine Negative (Negative); Clarity Clear (Clear); Glucose, Urine (Dipstick) Normal (Negative); Leukocyte Negative Leu/uL (Negative); Nitrite Negative (Negative); Protein, Urine (Dipstick) 20 mg/dL (Neg-Trace); Urobilinogen Normal mg/dL (Less than 2)
[2019-05-14] MEDS ORDERED: Acetaminophen 325 MG TAB PO PRN (22:32)
[2019-05-14] MEDS ORDERED: Ondansetron ODT 4 MG TAB SL PRN (22:32)
[2019-05-14] MEDS ORDERED: Ondansetron PF 4 MG/2 ML Vial IVP PRN (22:32)
[2019-05-14 23:08] VITALS: BMI 25.2
[2019-05-15] MEDS ORDERED: methylPREDNISolone Sod Succ 40 MG VIAL IVP SCH (06:00)
[2019-05-15] MEDS ORDERED: Zolpidem Tartrate 5 MG TAB PO PRN (07:34)
[2019-05-15] MEDS ORDERED: Bisacodyl 10 MG SUPP PR PRN (07:34)
[2019-05-15] MEDS ORDERED: Benzonatate 100 MG CAP PO PRN (07:34)
[2019-05-15] MEDS ORDERED: Metoclopramide HCl 10 MG TAB PO PRN (07:34)
[2019-05-15] MEDS ORDERED: hydrALAZINE 20 MG/ML VIAL SLOW IVP PRN (07:34)
[2019-05-15] MEDS ORDERED: Sodium Chloride 0.65% Nasal 44 ML BOT EA NARE PRN (07:34)
[2019-05-15] MEDS ORDERED: Morphine ER 15 MG TAB PO PRN (07:34)
[2019-05-15] MEDS ORDERED: Metoclopramide HCl 10 MG/2 ML VIAL IVP PRN (07:34)
[2019-05-15] MEDS ORDERED: HYDROcodone/Acetaminophen 5/325 mg Tablet PO PRN (07:34)
[2019-05-15] MEDS ORDERED: Calcium Carbonate 500 MG ChewTAB PO PRN (07:34)
[2019-05-15] MEDS ORDERED: Artificial Tears 18 DROP/0.9 ML EA EYE PRN (07:34)
[2019-05-15] MEDS ORDERED: Loperamide HCl 2 MG CAP PO PRN (07:34)
[2019-05-15] MEDS ORDERED: Ondansetron ODT 8 MG TAB PO PRN (07:34)
[2019-05-15] MEDS ORDERED: Cepastat Lozenges 1 LOZ PO PRN (07:34)
[2019-05-15] MEDS ORDERED: Loratadine 10 MG TAB PO PRN (07:34)
[2019-05-15] MEDS ORDERED: Senokot S 8.6-50 MG TAB PO PRN (07:34)
[2019-05-15] MEDS ORDERED: Acetaminophen 325 MG TAB PO PRN (07:34)
[2019-05-15] MEDS ORDERED: Diabetic Tussin 200 MG/10 ML UDCUP PO PRN (07:34)
[2019-05-15] MEDS: Cefepime 2 GM in Sodium Chloride 0.9% 100 ML IVPB SCH (08:36)
[2019-05-15] MEDS: Levothyroxine Sodium 100 MCG TAB PO SCH (08:37)
[2019-05-15] MEDS: Saccharomyces boulardii 250 MG CAP PO SCH (08:38)
[2019-05-15] MEDS: Enoxaparin Sodium 40 MG/0.4 ML SYRINGE SC SCH (08:38)
[2019-05-15] MEDS: guaiFENesin ER 600 MG TAB PO SCH ×2 (08:38→22:02)
[2019-05-15] MEDS: Famotidine 20 MG TAB PO SCH ×2 (08:38→22:01)
[2019-05-15] MEDS: Sodium Chloride 0.9% 1,000 ML IV SCH ×2 (08:44→14:59)
--- NOTE | 2019-05-15 11:06 | HP ---
PRIMARY CARE PHYSICIAN: [facility] Call admission. REASON FOR ADMISSION: Pneumonitis, acute hypoxic respiratory failure. HISTORY OF PRESENT ILLNESS: A 63-year-old male, who has underlying history of lung cancer, which is non-small cell lung cancer and the patient had a chemotherapy and subsequently, he was maintained on Keytruda. His last dose of Keytruda on Tuesday and subsequently over weekend, he started feeling shortness of breath. He was not able to take deep breath and he was feeling extreme shortness of breath with body ache, feeling weak, and that is why he has to call 911 and subsequently, the patient was brought to emergency room for evaluation. In the emergency room, the patient had CT angiography, which showed no evidence of pulmonary embolism. There was consolidation in left upper lobe and there was mild mediastinal lymphadenopathy as well as worsening of peribronchial thickening throughout right lower lobe bronchus. The patient was hypoxic in the emergency room and he was requiring oxygen, his oxygen saturation was 90%. He was slightly tachycardic, tachypneic, but afebrile. The patient received Solu-Medrol 125 mg IV, levofloxacin, Zofran, and IV fluid and subsequently, he was admitted to Oncology floor. This morning when I saw, at that time, the patient is already started feeling better. He denies any chest pain. He denies any fever or chills. He denies any nausea, vomiting, or diarrhea. He denies any UTI symptoms. He denies any constipation, diarrhea, melena, hematochezia. He denies any lower extremity edema, orthopnea, or PND. REVIEW OF SYSTEMS: CONSTITUTIONAL: Negative for weight loss or gain, ability to conduct usual activities. SKIN: Negative for rash, itching. EYES: Negative for double vision, pain. ENT/MOUTH: Negative for nose bleeding, neck stiffness, pain, tenderness. CARDIOVASCULAR: Negative for palpitations, dyspnea on exertion, orthopnea. RESPIRATORY: Negative for shortness of breath, wheezing, cough, hemoptysis, fever or night sweats. GASTROINTESTINAL: Negative for poor appetite, abdominal pain, heartburn, nausea, vomiting, constipation, or diarrhea. GENITOURINARY: Negative for urgency, frequency, dysuria, nocturia. MUSCULOSKELETAL: Negative for pain, swelling. NEUROLOGIC/PSYCHIATRIC: Negative for anxiety, depression. ALLERGY/IMMUNOLOGIC: Negative for skin rash, bleeding tendency. Please see my HPI for pertinent positives and negatives. All other review of systems reviewed and negative except as mentioned in HPI. PAST MEDICAL HISTORY: Non-small cell lung cancer, finished chemotherapy and now currently on maintenance therapy with Keytruda, and hypothyroidism. PAST SURGICAL HISTORY: Bilateral arthroscopic knee surgery, tonsillectomy. PAST PSYCHIATRIC HISTORY: Anxiety and depression. SOCIAL HISTORY: The patient is a former smoker. He quit smoking few years ago. He denies any alcohol abuse. He denies any other illicit drug abuse. He lives at home with family. FAMILY HISTORY: No strong family history of premature coronary artery disease, stroke, or cancer. ALLERGIES: NO KNOWN DRUG ALLERGY. CURRENT HOME MEDICATION: Synthroid 100 mcg p.o. daily, Keytruda every three week, Remeron 30 mg p.o. daily, Zofran 8 mg q.4 hourly p.r.n. morphine sulfate ER 7.5 mg at bedtime p.r.n. PHYSICAL EXAMINATION: VITAL SIGNS: On arrival; blood pressure 126/76, pulse 109, respiratory rate 24, temperature 98.3, saturation 90% on room air. Weight 73.4 kg. GENERAL: The patient is currently alert, awake, in no obvious acute distress. HEENT: Head normocephalic, atraumatic. Eyes; pupils round, reactive to light. Extraocular muscle intact. ENT: Oropharynx within normal limits. Moist mucous membranes. No oral lesion. No pharyngeal erythema, no exudate. NECK: Supple. No JVD. No thyromegaly. No carotid bruits. No jugular venous distention. LUNGS: Bilateral scattered rales noted with reduced air entry. No accessory muscles of respiration use. No respiratory distress. CARDIAC: S1, S2 regular. Slight tachycardia. No murmur. No gallop. No rub. ABDOMEN: Soft, bowel sounds present. Nontender. Nondistended. No organomegaly. No mass. No suprapubic tenderness. BACK: Unremarkable. No CVA tenderness. EXTREMITIES: Upper extremity; passive movement of all joints are normal. Lower extremity; no edema, good distal pulsation. NEUROLOGIC: Nonfocal examination. SIGNIFICANT LABORATORY DATA: EKG showing sinus tachycardia, premature atrial complexes, incomplete right bundle-branch block pattern. CBC; WBC 11.9, hemoglobin 14.0, platelet 538 with left shift. D-dimer 2.94. Sodium 135, potassium 3.8, chloride 108, carbon dioxide 14, BUN 16, creatinine 0.98, glucose 87, calcium 9.4, lactic acid 1.3, LFT; AST 20, ALT 26, alkaline phosphatase 185, albumin 3.8. Troponin I 0.021. BNP less than 10. Urinalysis normal. CT angiography showing no evidence of pulmonary embolism. There is right upper lobe lung mass of 6 x 4.5 x 4 cm, consolidation in left upper lobe as well as mild mediastinal lymphadenopathy and worsening of peribronchial thickening throughout the right lower lobe. ASSESSMENT AND PLAN: 1. Acute respiratory failure with hypoxia, likely due to underlying pneumonia and lung cancer. 2. Community-acquired pneumonia/pneumonitis due to inflammatory process after chemotherapy. Based on clinical scenario, we are suspecting infection and patient has responded to antibiotic therapy. We will continue with cefepime 2 g IV q.12 hourly, Levaquin 750 mg IV daily, Mucinex 600 mg twice daily, Solu-Medrol 20 mg IV q.8 hourly, DuoNeb therapy every 6 hourly today. 3. Hypothyroidism. Continue Synthroid 100 mcg p.o. daily. 4. Anxiety and depression. Continue Remeron 30 mg p.o. daily. 5. Deep venous thrombosis prophylaxis. Lovenox 40 mg subcu daily. 6. GI prophylaxis. Pepcid 20 mg p.o. b.i.d. CODE STATUS: The patient is full code. The patient does not have any obvious surrogate decision maker. DISPOSITION PLAN: Based on clinical course, we are expecting the patient's stay in hospital more than 2 midnights. Plan of care discussed with the patient while in hospital. Oncology has been consulted for lung cancer because the patient was sent from Oncology Clinic as well as while in hospital, he will need oxygen saturation check, as patient has rapid improvement that is why we are expecting his discharge soon. Job ID: [id number]
[2019-05-15] MEDS: methylPREDNISolone Sod Succ 40 MG VIAL IVP SCH ×2 (14:58→22:02)
[2019-05-15] MEDS: Mirtazapine 30 MG TAB PO SCH (22:01)
[2019-05-16] MEDS: Cefepime 2 GM in Sodium Chloride 0.9% 100 ML IVPB SCH ×3 (00:03→21:05)
[2019-05-16 04:50] LABS: #Eosinphils 0.1 thou/uL (0.0-0.7); #Monocytes 1.3 thou/uL (0.11-0.59); #Neutrophils 11.4 thou/uL (1.40-6.50); %Basophils 0.1 % (0.0-1.0); %Eosinophils 0.4 % (0.0-10.0); %Lymphocytes 7.5 % (21.0-51.0); %Monocytes 9.2 % (0.0-10.0); %Neutrophils 82.8 % (42.0-75.0); Hemoglobin 12.2 g/dL (14.0-18.0); Mean Corpuscular HGB CONC 34.4 g/dL (32.0-36.0); Mean Corpuscular Hemoglobin 29.7 pg (27.0-31.0); Mean Corpuscular Volume 86.3 fL (78.0-98.0); Mean Platelet Volume 6.5 fL (7.4-10.4); Platelet Count 539 thou/uL (130-400); White Blood Cell (WBC) Count 13.8 thou/uL (4.8-10.8)
[2019-05-16 05:13] LABS: ALT (SGPT) 24 U/L (8-55); AST (SGOT) 16 U/L (5-34); Albumin 3.3 g/dL (3.4-4.8); Alkaline Phosphatase 149 U/L (40-110); Anion Gap 12 mmol/L (10-20); BUN (Urea Nitrogen) 17 mg/dL (8.4-25.7); Bilirubin, Total 0.2 mg/dL (0.2-1.2); Calc. Creatinine Clearance 82 mL/min (70-130); Calcium 9.2 mg/dL (7.8-10.44); Carbon Dioxide 20 mmol/L (23-31); Chloride 112 mmol/L (98-107); Estimated GFR-MDRD 80; Globulin 3.1 g/dL (2.4-3.5); Glucose 139 mg/dL (80-115); Potassium 4.1 mmol/L (3.5-5.1); Protein, Total 6.4 g/dL (5.8-8.1); Sodium 140 mmol/L (136-145)
[2019-05-16] MEDS: Sodium Chloride 0.9% 1,000 ML IV SCH ×2 (05:16→17:32)
[2019-05-16] MEDS: methylPREDNISolone Sod Succ 40 MG VIAL IVP SCH ×3 (05:17→22:44)
[2019-05-16] MEDS: Enoxaparin Sodium 40 MG/0.4 ML SYRINGE SC SCH (09:59)
[2019-05-16] MEDS: guaiFENesin ER 600 MG TAB PO SCH ×2 (10:00→20:17)
[2019-05-16] MEDS: Levothyroxine Sodium 100 MCG TAB PO SCH (10:00)
[2019-05-16] MEDS: Saccharomyces boulardii 250 MG CAP PO SCH (10:00)
[2019-05-16] MEDS: Famotidine 20 MG TAB PO SCH ×2 (10:00→20:18)
--- NOTE | 2019-05-16 14:19 | CON ---
DATE OF CONSULTATION: 05/15/2019 REASON FOR CONSULTATION: Lung cancer. 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 Upon arrival, CT angio of the chest did not show any pulmonary embolism, but did show possible pneumonia as well as worsening interstitial infiltrates concerning for potential immune related pneumonitis. Upon evaluation this morning, the patient feels much better after being started on IV Solu-Medrol and antibiotics. He is still on oxygen, but his respirations are nonlabored and regular rate. He denies any chest pain, fevers, nausea, vomiting, diarrhea, or other complaints at this time. He states that he almost feels back to his baseline. REVIEW OF SYSTEMS: Ten-point review of systems negative except as per HPI. PAST MEDICAL HISTORY: Lung cancer and hypothyroidism. PAST SURGICAL HISTORY: Knee surgery and tonsillectomy. PSYCHIATRIC HISTORY: Anxiety and depression. SOCIAL HISTORY: Former smoker. FAMILY HISTORY: No cancer. ALLERGIES: NO KNOWN DRUG ALLERGIES. CURRENT MEDICATIONS: Reviewed. PHYSICAL EXAMINATION: VITAL SIGNS: Temperature 97.7, pulse 96, respirations 16, saturating 94% on 2 L, blood pressure 112/69. GENERAL APPEARANCE: The patient is lying in bed, in no acute distress. HEENT: Normocephalic and atraumatic. NECK: Supple. No JVD. LUNGS: Mostly clear to auscultation with occasional very light rales. CARDIAC: S1 and S2, regular rhythm and rate. ABDOMEN: Soft, nondistended, and nontender. NEUROLOGIC: Nonfocal. LABORATORY DATA: White blood cells 11.9, hemoglobin 14, platelets 538. Sodium 135, potassium 3.8, chloride 108, carbon dioxide 14, BUN 16, creatinine 0.98. IMAGING DATA: CT angio of the chest shows no PE or interval change in left upper lobe consolidation, but does show interval growth of right upper lobe pulmonary lesion and worsening of interstitial infiltrates, concerning for pneumonitis. ASSESSMENT AND PLAN: A 63-year-old male with stage IV lung cancer, currently on maintenance Keytruda, presenting with severe shortness of breath with likely pneumonia and a degree of immune related pneumonitis. Recommend continuing IV antibiotics and IV steroids at least for a couple of days and if the patient continues to improve dramatically like he already has, then we can convert these to an oral regimen. He will likely need long-term steroids tapered slowly as I do suspect he has some immune pneumonitis from Keytruda. We will follow along with you. Job ID: [id number]
--- NOTE | 2019-05-16 15:57 | PDOC.HOSPP ---
- Subjective Encounter Date: 05/16/19 Encounter Time: 15:56 Subjective: "I feel much better." Eager to go home. With walking, oxyen 83% on RA. Discussed home oxygen with him, he is open. - Objective Vital Signs & Weight: Vital Signs (12 hours) Temp Pulse Resp BP Pulse Ox 05/16/19 14:10 96 14 05/16/19 12:00 97.8 F 98 18 134/71 95 05/16/19 08:18 92 15 05/16/19 08:00 97.4 F L 107 H 20 145/77 H 96 05/16/19 04:00 98.8 F 73 16 104/57 L 93 L Weight Admit Weight 165 lb 8.992 oz Weight 165 lb 8.992 oz I&O: 05/15/19 05/16/19 05/17/19 06:59 06:59 06:59 Intake Total 100 4120 Output Total 1425 Balance 100 2695 Result Diagrams: 05/16/19 04:13 05/16/19 04:13 Hospitalist ROS - Medication Medications: Active Medications Generic Name Dose Route Start Last Admin Trade Name Freq PRN Reason Stop Dose Admin Albuterol/Ipratropium 3 ml 05/15/19 13:00 05/16/19 14:10 Duoneb NEB 3 ml [id number] URIEL Administration Enoxaparin Sodium 40 mg 05/15/19 09:00 05/16/19 09:59 Lovenox SC 40 mg 0900 URIEL Administration Famotidine 20 mg 05/15/19 09:00 05/16/19 10:00 Pepcid PO 20 mg BID URIEL Administration Guaifenesin 600 mg 05/15/19 09:00 05/16/19 10:00 Mucinex PO 600 mg Q12HR URIEL Administration Sodium Chloride 1,000 mls @ 100 mls/hr 05/15/19 07:45 05/16/19 05:16 Normal Saline 0.9% IV 1,000 mls .Q10H URIEL Administration Cefepime HCl 2 gm/ Sodium 100 mls @ 200 mls/hr 05/15/19 09:00 05/16/19 09:59 Chloride IVPB 100 mls Q12HR URIEL Administration Levofloxacin 750 mg/ Device 150 mls @ 100 mls/hr 05/15/19 20:00 05/15/19 22: 01 IVPB 150 mls 1999 URIEL Administration Levothyroxine Sodium 100 mcg 05/15/19 09:00 05/16/19 10:00 Synthroid PO 100 mcg DAILY URIEL Administration Methylprednisolone Sodium Succinate 20 mg 05/15/19 14:00 05/16/19 15:08 Solu-Medrol IVP 20 mg Q8HR URIEL Administration Mirtazapine 30 mg 05/15/19 21:00 05/15/19 22:01 Remeron PO 30 mg HS URIEL Administration Saccharomyces Boulardii 250 mg 05/15/19 09:00 05/16/19 10:00 Florastor PO 250 mg DAILY URIEL Administration Sodium Chloride 10 ml 05/15/19 09:00 05/16/19 10:00 Flush - Normal Saline IVF 10 ml Q12HR URIEL Administration - Exam General - other findings: Speaking in full sentences Eye: anicteric sclera ENT: normocephalic atraumatic Neck: supple Heart: RRR Respiratory - other findings: bilateral dry rales Gastrointestinal: soft, non-tender, non-distended Extremities: no clubbing, no edema Skin: no rashes Musculoskeletal: normal strength Psychiatric: normal affect, A&O x 3 Hosp A/P (1) Acute respiratory failure with hypoxemia Code(s): J96.01 - ACUTE RESPIRATORY FAILURE WITH HYPOXIA Status: Acute (2) Pneumonitis Code(s): J18.9 - PNEUMONIA, UNSPECIFIED ORGANISM Status: Acute (3) Hypothyroid Code(s): E03.9 - HYPOTHYROIDISM, UNSPECIFIED Status: Acute (4) PNA (pneumonia) Code(s): J18.9 - PNEUMONIA, UNSPECIFIED ORGANISM Status: Acute Qualifiers: Pneumonia type: due to unspecified organism Laterality: right (5) Squamous cell carcinoma of lung, stage IV Code(s): C34.90 - MALIGNANT NEOPLASM OF UNSP PART OF UNSP BRONCHUS OR LUNG Status: Acute (6) Anxiety Code(s): F41.9 - ANXIETY DISORDER, UNSPECIFIED Status: Acute - Plan plan discussed w/ family, continue antibiotics, respiratory therapy, out of bed/ ambulate, DVT proph w/lovenox Pulm - presently on IV steroids; eager to go home. Completed paperwork for home oxygen today to have ready for tomorrow. Possible transition to oral steroids and oral abx soon. [place] to have some degree of pneumonitis secondary to Keytruda; I am unsure how this might impact future treatments. Endo - hypothyroid --> continue home synthroid Encourage po fluids. Anxiety/depression - on remeron, controlled
[2019-05-16] MEDS: Mirtazapine 30 MG TAB PO SCH (20:18)
[2019-05-17 05:13] LABS: #Eosinphils 0.1 thou/uL (0.0-0.7); #Monocytes 0.6 thou/uL (0.11-0.59); #Neutrophils 11.3 thou/uL (1.40-6.50); %Eosinophils 0.6 % (0.0-10.0); %Lymphocytes 7.3 % (21.0-51.0); %Monocytes 4.7 % (0.0-10.0); %Neutrophils 87.4 % (42.0-75.0); Hemoglobin 12.3 g/dL (14.0-18.0); Mean Corpuscular Hemoglobin 29.1 pg (27.0-31.0); Mean Corpuscular Volume 85.7 fL (78.0-98.0); Mean Platelet Volume 6.6 fL (7.4-10.4); Platelet Count 538 thou/uL (130-400); RBC Distribution Width 13.5 % (11.5-14.5); Red Blood Cell (RBC) Count 4.23 mill/uL (4.70-6.10); White Blood Cell (WBC) Count 12.9 thou/uL (4.8-10.8)
[2019-05-17 05:20] LABS: Anion Gap 13 mmol/L (10-20); BUN (Urea Nitrogen) 17 mg/dL (8.4-25.7); Calc. Creatinine Clearance 85 mL/min (70-130); Calcium 9.1 mg/dL (7.8-10.44); Carbon Dioxide 19 mmol/L (23-31); Chloride 113 mmol/L (98-107); Estimated GFR-MDRD 83; Glucose 128 mg/dL (80-115); Potassium 4.6 mmol/L (3.5-5.1); Sodium 140 mmol/L (136-145)
[2019-05-17] MEDS: methylPREDNISolone Sod Succ 40 MG VIAL IVP SCH (05:50)
[2019-05-17] MEDS: Sodium Chloride 0.9% 1,000 ML IV SCH (06:09)
--- NOTE | 2019-05-17 08:08 | PDOC.MOPN ---
Interval History: Pt feeling better today. Exercising in bed. Denies SOB at the moment. - Vital Signs Vital Signs: Vital Signs (12 hours) Pulse Resp Pulse Ox 05/17/19 07:43 84 16 91 L Weight Admit Weight 165 lb 8.992 oz Weight 165 lb 8.992 oz - Physical Exam General: Alert, Oriented x3, Cooperative HEENT: EOMI Lungs: Clear to auscultation Cardiovascular: Regular rate, Normal S1, Normal S2 Abdomen: Soft, No tenderness Extremities: No edema Neurological: Cranial nerves 3-12 NL Psych/Mental Status: Mental status NL - Labs Result Diagrams: 05/17/19 04:44 05/17/19 04:44 Lab results: Laboratory Results - last 24 hr 05/17/19 04:44: WBC 12.9 H, RBC 4.23 L, Hgb 12.3 L, Hct 36.2 L, MCV 85.7, MCH 29.1, MCHC 34.0, RDW 13.5, Plt Count 538 H, MPV 6.6 L, Neutrophils % 87.4 H, Lymphocytes % 7.3 L, Monocytes % 4.7, Eosinophils % 0.6, Basophils % 0.0, Neutrophils # 11.3 H, Lymphocytes # 1.0 L, Monocytes # 0.6 H, Eosinophils # 0.1 , Basophils # 0.0 05/17/19 04:44: Sodium 140, Potassium 4.6, Chloride 113 H, Carbon Dioxide 19 L, Anion Gap 13, BUN 17, Creatinine 0.92, Estimated GFR (MDRD) 83, Glucose 128 H, Calcium 9.1 A/P - Problem (1) Pneumonitis Current Visit: Yes Code(s): J18.9 - PNEUMONIA, UNSPECIFIED ORGANISM Status: Acute (2) Squamous cell carcinoma of lung, stage IV Current Visit: Yes Code(s): C34.90 - MALIGNANT NEOPLASM OF UNSP PART OF UNSP BRONCHUS OR LUNG Status: Acute (3) PNA (pneumonia) Current Visit: No Code(s): J18.9 - PNEUMONIA, UNSPECIFIED ORGANISM Status: Acute Qualifiers: Pneumonia type: due to unspecified organism Laterality: right - Plan Plan: cont antibiotics, steroids, supportive care titrate off oxygen if possible or will need to set up at home oxygen
[2019-05-17] MEDS: Cefepime 2 GM in Sodium Chloride 0.9% 100 ML IVPB SCH (09:40)
[2019-05-17] MEDS: Saccharomyces boulardii 250 MG CAP PO SCH (09:41)
[2019-05-17] MEDS: Levothyroxine Sodium 100 MCG TAB PO SCH (09:41)
[2019-05-17] MEDS: Enoxaparin Sodium 40 MG/0.4 ML SYRINGE SC SCH (09:41)
[2019-05-17] MEDS: guaiFENesin ER 600 MG TAB PO SCH (09:41)
[2019-05-17] MEDS: Famotidine 20 MG TAB PO SCH (09:42)
[2019-05-17 10:22] VITALS: BP 147/76; TEMP 97.4
--- NOTE | 2019-05-17 10:36 | PDOC.EVN ---
Event Note - Event Note Event Note: Addendum: Pneumonia appears resolved; treating as pneumonitis secondary to chemotherapy side effect.
--- NOTE | 2019-05-17 16:46 | PDOC.MOPN ---
Interval History: Feeling much better. Sitting in chair off Oxygen, walks around the room w/o difficulty. - Vital Signs Vital Signs: Vital Signs (12 hours) Temp Pulse Resp BP Pulse Ox 05/17/19 09:30 97.4 F L 99 16 147/76 H 96 05/17/19 07:43 84 16 91 L Weight Admit Weight 165 lb 8.992 oz Weight 165 lb 8.992 oz - Physical Exam General: Alert, Oriented x3 HEENT: EOMI Lungs: Normal air movement Cardiovascular: Regular rate Abdomen: Soft Extremities: No edema Neurological: Cranial nerves 3-12 NL - Labs Result Diagrams: 05/17/19 04:44 05/17/19 04:44 Lab results: Laboratory Results - last 24 hr 05/17/19 04:44: WBC 12.9 H, RBC 4.23 L, Hgb 12.3 L, Hct 36.2 L, MCV 85.7, MCH 29.1, MCHC 34.0, RDW 13.5, Plt Count 538 H, MPV 6.6 L, Neutrophils % 87.4 H, Lymphocytes % 7.3 L, Monocytes % 4.7, Eosinophils % 0.6, Basophils % 0.0, Neutrophils # 11.3 H, Lymphocytes # 1.0 L, Monocytes # 0.6 H, Eosinophils # 0.1 , Basophils # 0.0 05/17/19 04:44: Sodium 140, Potassium 4.6, Chloride 113 H, Carbon Dioxide 19 L, Anion Gap 13, BUN 17, Creatinine 0.92, Estimated GFR (MDRD) 83, Glucose 128 H, Calcium 9.1 A/P - Problem (1) Pneumonitis Code(s): J18.9 - PNEUMONIA, UNSPECIFIED ORGANISM Status: Acute (2) Squamous cell carcinoma of lung, stage IV Code(s): C34.90 - MALIGNANT NEOPLASM OF UNSP PART OF UNSP BRONCHUS OR LUNG Status: Acute (3) PNA (pneumonia) Code(s): J18.9 - PNEUMONIA, UNSPECIFIED ORGANISM Status: Acute Qualifiers: Pneumonia type: due to unspecified organism Laterality: right - Plan Plan: ok to dc home on prednisone 1mg/kg, oral antibiotics x 7 days, f/u with me in clinic next week
--- NOTE | 2019-05-18 01:27 | DIS ---
DATE OF ADMISSION: 05/14/2019 DATE OF DISCHARGE: 05/17/2019 PRIMARY CARE PHYSICIAN: [facility] Call admission Oncologist, Chavez Hutchison MD. REASON FOR ADMISSION: Pneumonitis, acute hypoxic respiratory failure. DISCHARGE DIAGNOSES: 1. Acute hypoxic respiratory failure, secondary to underlying pneumonitis in the context of squamous cell lung cancer. 2. Hypothyroidism. 3. Anxiety/depression. 4. Community-acquired pneumonia, resolving. HOSPITAL COURSE: Mr. Marc is a very pleasant 63-year-old gentleman with a medical history of squamous cell lung cancer, presently on Keytruda therapy. Last dose of Keytruda was Tuesday prior to admission, over the weekend developed interval worsening shortness of breath, unable to take deep breaths, along with body aches and general weakness. He presented to the emergency department for evaluation after referral from Dr. Hutchison. CT angiography showed no evidence of pulmonary embolism. Consolidation noted in the left upper lobe, mild mediastinal lymphadenopathy as well as worsening of peribronchial thickening throughout the right lower lobe noted. Noted to be hypoxic in the emergency room, requiring oxygen. Tachycardic, tachypneic, afebrile. Started on IV antibiotics as well as steroids and IV fluids. Over the course of this hospital stay, Mr. Marc showed significant response to therapy. He continued to have evidence of hypoxemia, room air saturation 84%, noted on 05/16/2019. Referral made for home oxygen. Infectious component of pneumonia appears to have resolved, treating primarily for pneumonitis at this time. Per recommendation of Oncology, treating with prednisone 1 mg/kg orally over the next week, with subsequent taper, to be directed in the office based on his clinical response to therapy. Mr. Marc has continued to show improvement, stable for transition to home. Seen and evaluated by me on 05/17/2019. Good aeration, interval bilateral dry crackles noted yesterday have shown interval improvement. Heart is regular rate and rhythm. Abdomen is soft and nontender. He has no significant lower extremity edema. DISCHARGE MEDICATIONS: 1. Levaquin 750 mg p.o. daily for 5 days. 2. Levothyroxine 100 mcg p.o. once daily. 3. Remeron 30 mg p.o. at bedtime. 4. Morphine extended release 7.5 mg p.o. at bedtime p.r.n. pain. 5. Zofran 8 mg p.o. q.4 hours p.r.n. nausea. 6. Prednisone 75 mg p.o. daily for the next 7 days, with subsequent transition to 50 mg daily, further taper to be directed per Oncology based on response to therapy. DIET: Regular. ACTIVITY: As tolerated. FOLLOWUP: Follow up with Dr. Hutchison in the next 1-2 weeks or sooner if needed. CONDITION ON DISCHARGE: Improved. Referral made for home oxygen. TIME SPENT: Total time spent on current discharge planning, 45 minutes. Job ID: [id number] [email or web address]
--- NOTE | 2019-05-19 12:29 | EKG ---
Test Reason : Blood Pressure : / mmHG Vent. Rate : 109 BPM Atrial Rate : 109 BPM P-R Int : 136 ms QRS Dur : 092 ms QT Int : 310 ms P-R-T Axes : 058 058 020 degrees QTc Int : 417 ms Sinus tachycardia with Premature atrial complexes with Abberant conduction Incomplete right bundle branch block Borderline ECG Confirmed by DULCE MARIA SYKES M.D. ([id number]), assignment desk editor ANGEL LUIS WANG ([id number]) on 05/19/2019 12:29:06 PM Referred By: Confirmed By:DULCE MARIA SYKES M.D.
== END 2019-05-17 13:50 | disposition home or self-care (01) | DRG 205 ==
LOC: ERS 16:20 → ONC 20:05
PROVIDERS: ADMIT Family Medicine; ATTEND Family Medicine
DX: J70.4 Drug-induced interstitial lung disorders, unspecified (principal); J96.01 Acute respiratory failure with hypoxia; C34.11 Malignant neoplasm of upper lobe, right bronchus or lung; E03.9 Hypothyroidism, unspecified; F41.9 Anxiety disorder, unspecified; F32.9 Major depressive disorder, single episode, unspecified; T45.1X5A Adverse effect of antineoplastic and immunosuppressive drugs, initial encounter; Z87.891 Personal history of nicotine dependence
CPT/HCPCS: 36415; 71275; 80048; 80053; 81003; 82248; 82550; 83605; 83615; 83880; 84100; 84484; 84550; 85025; 85379; 93005; 96361; 96365; 96366; 96375; J0692; J1650; J1956; J2405; J2920; J2930; J3490; J7620; Q9966

== ENCOUNTER 2019-06-12 08:03 | Outpatient (CLI) | payer MEDICARE, OTHER ==
--- NOTE | 2019-06-12 10:32 | CT ---
CT CHEST: Date: 06/12/19 COMPARISON: 05/14/19 CT angiogram chest. 04/03/19 CT of chest with IV contrast. HISTORY: Lung cancer, pneumonia/pneumonitis. Evaluate for response to therapy and resolution of acute findings . TECHNIQUE: Axial CT imaging is obtained at 3 mm intervals from the thoracic inlet through the upper abdomen with IV contrast. Coronal and sagittal reformatted imaging obtained. FINDINGS: Partially imaged upper abdomen demonstrates stable hypodensities within the spleen. Cholecystectomy c lips are present. Imaged portions of the liver appear unremarkable. Bilateral adrenal glands appear u nremarkable. There is a partially imaged hypodensity within the mid pole of the left kidney, incomple tely assessed on this exam. No lymphadenopathy is noted in the axillary regions. No enlarged hilar lymph nodes are noted. There is a mildly prominent subcarinal lymph node measuring approximately 1.1 cm in short axis dimens ion, which appears to have decreased in size slightly when compared to the 05/14/19 exam, at which ti me it measured 1.3 cm in short axis dimension. In addition, the 05/14/19 examination demonstrated a m ildly prominent right paratracheal node which measured 8.0 mm, decreased on today's examination to ap proximately 5.0 mm. No significant pleural, pericardial, or mediastinal fluid is evident. There is no discrete endobronchial lesion evidence on this exam. Left upper lobe: There is coarse increased density which radiates from the anterior aspect of the left hilum anteriorl y and laterally with peripheral consolidative change within the anterior aspect of the left upper lob e, unchanged when compared to the 05/14/19 and 04/03/19 examinations. No dominant pulmonary parenchym al mass lesion or nodule is noted otherwise within the left upper lobe. The degree of interstitial pr ominence along the bronchovascular bundles within the inferior aspect of the left upper lobe has impr [place] since the most recent prior exam. Left lower lobe: There is peribronchial interstitial thickening. There are scattered areas of increased linear interst itial density inferiorly. When compared to the 05/14/19 examination, the degree of peribronchial line ar interstitial density has significantly improved. There is a focal density in the medial aspect of the left lower lobe abutting the pleura measuring 5 mm on image 69, which is smaller than on both johan or examinations. Right upper lobe: There is a focal angulated area of mass-like pulmonary parenchymal opacity within the posterior aspec t of the right upper lobe measuring 4.4 x 3.7 cm. This lesion is consistent with the patient's histor y of bronchogenic carcinoma. This lesion does not appear to have changed when compared to prior imagi ng dated 04/03/19. This lesion is smaller than on the 05/14/19 exam, at which time it measured 5.9 x 4.3 cm. Within the inferior anterior aspect of the right upper lobe, there are extensive reticulonodu lar densities which have improved when compared to 05/14/19 and are similar when compared to 04/03/19 . Right middle lobe: Mild scattered areas of linear interstitial thickening is noted. Aeration within right middle lobe castañeda s improved since the 05/14/19 examination and is similar when compared to 04/13/19. Right lower lobe: There are linear areas of increased interstitial density along the bronchovascular bundles within the superior posteromedial aspect of the right lower lobe extending into the right lung base, improved w hen compared to 05/14/19 and new when compared to 04/03/19. Review of the osseous structures reveals no discrete lytic or blastic lesion. IMPRESSION: Posterior right upper lobe mass measuring 3.7 x 4.3 cm, consistent with the patient's history of bron chogenic carcinoma, stable when compared to 04/03/19, and improved when compared to 05/14/19. This ch natalie may represent response to therapy and/or improvement of adjacent infectious process. Of note, there is residual bronchial wall thickening and interstitial density along the bronchovascul ar structures throughout both lungs suggesting probable superimposed inflammatory/infectious process. This could also represent lymphangitic spread of cancer. Of note, this is significantly improved faivan aterally since 05/14/19 and is slightly more conspicuous than on 04/03/19. Continued follow-up is adv ised. POS: OFF
== END 2019-06-12 08:04 | disposition home or self-care (01) ==
LOC: BICCT 08:03
PROVIDERS: ATTEND Internal Medicine Hematology & Oncology
DX: C34.11 Malignant neoplasm of upper lobe, right bronchus or lung (principal); E03.2 Hypothyroidism due to medicaments and other exogenous substances; J18.9 Pneumonia, unspecified organism; R91.8 Other nonspecific abnormal finding of lung field
CPT/HCPCS: 71260

== ENCOUNTER 2019-07-23 09:48 | Outpatient (CLI) | payer MEDICARE, OTHER ==
[2019-07-23 10:28] LABS: Estimated GFR-MDRD - POC Greater than 90
[2019-07-23] MEDS ORDERED: Iopamidol-370 76% 500 ML 1 ML ONE (11:04)
--- NOTE | 2019-07-23 11:37 | CT ---
CT OF THE CHEST WITH IV CONTRAST INDICATION: Follow-up lung cancer COMPARISON: CT of the thorax dated June 12, 2019, CTA of the thorax dated May 14, 2019, CTA of the thorax dated April 03, 2019, March 19, 2019 and December 19, 2018. FINDINGS: CHEST: Lungs: The right upper lobe lung mass is slightly smaller than the most recent CT evaluation of the t horax now measuring 4.0 x 3.4 cm where previously it measured 4.3 x 3.7 cm. The peribronchovascular thickening seen diffusely throughout both lungs appears slightly more pronounced than on the most rec ent comparison dated June 12, 2019 but is improved from the comparison CT dated May 14, 2019. Areas of scarlike opacity remain within both upper lobes. There is stable severe emphysema Pleural space: No effusion. Mediastinum: There is stable mildly enlarged 1.1 cm subcarinal lymph node. Upper abdomen:Stable splenic cysts. Adrenal glands are normal appearing. Gallbladder surgically absen t. Osseous structures: No acute osseous abnormality. No destructive osteolytic or osteoblastic lesion i s identified. There is scattered degenerative and osteoarthritic changes. Soft tissues:Normal. IMPRESSION: 1. Slight interval decrease in size of the right upper lobe lung mass. 2. Bronchovascular thickening seen throughout both lungs appears slightly more pronounced than the mo st recent examination dated June 12, 2019; however, is improved from May 14, 2019. Differential considerations including peribronchial vascular infectious inflammatory etiologies and l ymphangitic spread of cancer remain considerations.
== END 2019-07-23 09:49 | disposition home or self-care (01) ==
LOC: BICCT 09:48
PROVIDERS: ATTEND Internal Medicine Hematology & Oncology
DX: C34.11 Malignant neoplasm of upper lobe, right bronchus or lung (principal); E03.2 Hypothyroidism due to medicaments and other exogenous substances; J70.4 Drug-induced interstitial lung disorders, unspecified; R91.8 Other nonspecific abnormal finding of lung field
CPT/HCPCS: 71260; 82565; Q9967

== ENCOUNTER 2019-09-18 08:10 | Outpatient (CLI) | payer MEDICARE, OTHER ==
--- NOTE | 2019-09-18 09:33 | CT ---
CT CHEST WITH CONTRAST CLINICAL INDICATION: Lung cancer. COMPARISON: 07/23/2019 and 06/12/2019 FINDINGS: Aorta: Minimal vascular calcification are seen in the aortic arch. The thoracic aorta is normal in ca liber without evidence of an aortic dissection Lungs: Previously described right upper lobe lung mass is again seen with measurements not significan tly changed when compared to prior exams. This mass measures 4.1 cm x 3.5 cm on the current study and measured 4 cm x 3.4 cm on study of 07/23/2019 with measurements obtained on 06/12/2019 of 4.4 cm x 3.8 cm. The peribronchovascular thickening seen diffusely throughout the lungs bilaterally is more pronounced when compared to the study on 06/12/2019 with greater patchy parenchymal densities seen scattered within the left upper lobe on the current exam. Areas of linear scarring within the upper lung zones bilaterally is also again present. No pleural effusion is present Mediastinum: There is an enlarged subcarinal lymph node measuring 1.6 mm in short axis dimension, and this previously measured 1.1 cm in short axis dimension on the study of 07/23/2019. A few scattered nonenlarged mediastinal lymph nodes are again seen. Thyroid gland: There is small in size or absent. Osseous structures: No suspicious lytic or sclerotic osseous lesions are identified. Chest wall: No abnormality visualized. Upper abdomen: Postcholecystectomy changes are again seen. Stable hypodense lesion superior pole of t he spleen is again seen probably due to splenic cysts. IMPRESSION: 1. Overall stable size of right upper lobe lung mass. 2. Worsening degree of bronchovascular thickening throughout the lungs bilaterally when compared to darian chavez on 07/23/2019. Findings again could be related to infectious or inflammatory process. Lymphangitic spread of tumor is also a differential consideration. 3. Interval enlargement of subcarinal lymph node which measures 1.6 cm in short axis dimension on the current exam.
[2019-09-18] MEDS ORDERED: Iopamidol-370 76% 500 ML 1 ML ONE (14:38)
== END 2019-09-18 08:11 | disposition home or self-care (01) ==
LOC: BICCT 08:10
PROVIDERS: ATTEND Internal Medicine Hematology & Oncology
DX: C34.11 Malignant neoplasm of upper lobe, right bronchus or lung (principal); R59.0 Localized enlarged lymph nodes; J98.09 Other diseases of bronchus, not elsewhere classified
CPT/HCPCS: 71260; Q9967

== ENCOUNTER 2019-10-01 11:16 | Outpatient (CLI) | payer MEDICARE, OTHER ==
--- NOTE | 2019-10-01 13:13 | CT ---
EXAM: CT ABDOMEN AND PELVIS HISTORY: Lung cancer. Elevated LFTs. Evaluate for hepatic metastases. COMPARISON: None Correlation: Chest CT to 12/03/2019 Procedure: Multiple contiguous axial images were obtained and a CT of the abdomen and pelvis with IV contrast. C oronal reformats were performed. FINDINGS: Lower Chest: Patchy linear opacities do remain in the lung bases, along with mild bronchiectasis. Vessels: Normal caliber aorta. No periaortic fat stranding. Heart: Normal heart size. No significant pericardial fluid. Minimal coronary artery calcification. Abdomen: Portal vein:Patent Gallbladder: Surgically absent Liver: within normal limits. Pancreas: within normal limits. Spleen: 1.8 cm hypodensity in the spleen, unchanged from previous CT. Splenic cyst is favored. Adrenals: within normal limits. Kidneys: Symmetric enhancement. No obstructive uropathy. Hypodensity in the mid pole left kidney jayy uring 0.9 x 1.4 cm, attenuation coefficient 11 Hounsfield units. Cyst is favored. Additional hypodensities in the right kidney, too small to characterize but are statistically favored to be cyst s. Peritoneum: No ascites or free air, no fluid collection. Bowel: No evidence of bowel obstruction. Ileocecal junction is unremarkable. Normal caliber appendix. Scattered fecal material in a nondistended, nondilated colon. Extensive diverticulosis in the descending colon and sigmoid colon. Mucosal thickening of the sigmoid colon may represent a combinati on of inadequate distention from oral contrast along with chronic changes due to remote bouts of diverticulitis. If there is concern for underlying mucosal-based pathology, consider colonoscopy. Mesentery and Retroperitoneum: No enlarged mesenteric or retroperitoneal lymph nodes. Abdominal Wall: within normal limits. Pelvis: Reproductive Organs: Reproductive organs are unremarkable. Pelvis: No mass, lymphadenopathy, free air or free fluid. Bladder: within normal limits. Bones: Mild loss of vertebral body height along the superior endplate of T12 likely due to a remote S chmorl's node/minimal compression deformity. No retropulsion. IMPRESSION: 1. No evidence of acute intraabdominal\pelvic abnormality. 2. Left colonic mucosal thickening as described above. 3. No abnormal attenuation within the liver to suggest hepatic metastases.
[2019-10-01] MEDS ORDERED: Iopamidol-370 76% 500 ML 1 ML ONE (13:53)
== END 2019-10-01 11:17 | disposition home or self-care (01) ==
LOC: BICCT 11:16
PROVIDERS: ATTEND Internal Medicine Hematology & Oncology
DX: C34.11 Malignant neoplasm of upper lobe, right bronchus or lung (principal); R94.5 Abnormal results of liver function studies; K63.89 Other specified diseases of intestine
CPT/HCPCS: 74177; Q9967

== ENCOUNTER 2019-12-17 09:05 | Outpatient (CLI) | payer MEDICARE, OTHER ==
[~2019-12-17 09:05] MED LIST changes: -ISOVUE-370 76%-LOCM 1 ML ONE; +Iopamidol 370 76% 100 ML VIAL ONE
--- NOTE | 2019-12-17 11:54 | CT ---
CT CHEST WITH IV CONTRAST CT ABDOMEN WITH IV CONTRAST CT PELVIS WITH IV CONTRAST: HISTORY: Lung cancer followup. COMPARISON: CT chest of 09/18/[address] abdomen and pelvis of 10/01/2019. FINDINGS: The subcarinal lymph node currently measures 9 mm in short axis diameter (previously 1.6 cm. No new enlarged mediastinal, hilar, or axillary lymph nodes are seen. No pleural or pericardial effusions a re identified. The right upper lobe lung mass is smaller, measuring 3.7 x 3 cm (previously 4.1 x 3.5 cm). There are diffuse peribronchial vascular thickening noted bilaterally on the previous study demonstrates inter micha improvement without complete resolution. A 1.9 cm low-density hypodensity is stable. The liver, pancreas, and adrenal glands are normal. Cys ts in the kidneys are again seen. No free air, free fluid, or lymphadenopathy is seen in the abdomen or pelvis. The small bowel loops are not abnormally dilated. There is colonic diverticulosis. There are vascular calcifications without evidence of aneurysmal dilatation of the thoracoabdominal a kp. There are degenerative changes of the thoracolumbar spine. No osteolytic or osteoblastic lesi ons are seen. Minimal anterior wedging of the superior end plate of T12 vertebral body is stable. IMPRESSION: Interval improvement since 09/18/2019. POS: MICHAEL
--- NOTE | 2019-12-17 13:59 | NM ---
Radionucleotide bone scan HISTORY: Lung cancer. Restaging. COMPARISON: 03/17/2018. FINDINGS: Physiologic uptake of radiotracer. Mild degenerative changes of the shoulders and knees. Pubic symphysis partially obscured by uptake within the urinary bladder. No pathologic areas of uptak e evident. IMPRESSION : No scintigraphic evidence of osseous metastasis.
== END 2019-12-17 09:06 | disposition home or self-care (01) ==
LOC: CT 09:05
PROVIDERS: ATTEND Internal Medicine Hematology & Oncology
DX: C34.11 Malignant neoplasm of upper lobe, right bronchus or lung (principal); E03.2 Hypothyroidism due to medicaments and other exogenous substances; T50.905A Adverse effect of unspecified drugs, medicaments and biological substances, initial encounter
CPT/HCPCS: 71260; 74177; 78306; 84443; 85027; A9503; 36415; Q9967

== ENCOUNTER 2020-02-06 10:33 | Outpatient (CLI) | payer MEDICARE, OTHER ==
--- NOTE | 2020-02-06 11:59 | CT ---
CT THORACIC SPINE WITH CONTRAST: HISTORY: Lung cancer. Pain. Evaluate for metastases. COMPARISON: None. CORRELATION: Chest, abdomen, and pelvic CT 12/17/2019. FINDINGS: Visualized mediastinum does not demonstrate any masses or lymphadenopathy. Heart size is normal. Ther e are coronary artery calcifications and calcification of the aortic valve. No significant pericardial fluid. Gallbladder is surgically absent. Hepatic steatosis is noted. Probable incompletely evaluated splenic cyst measuring 2 cm. No paraspinal mass, lymphadenopathy, or hematoma, There is a masslike opacity in the right upper lobe, measuring 3.3 x 2.5 cm. Findings may represent a telectasis, pneumonia or neoplasm. The opacity is unchanged from CT on 12/17/2019. Additional chronic lung parenchymal changes are identif ied. There are 12 thoracic-type vertebrae. There is a mild compression fracture with sclerosis involving t he T5 vertebral body. Changes of the T5 vertebral body were not present on CT from 12/17/2019. Mild loss of vertebral body height and irregularity involving the superior endplate of T8. There is stable change along the superior endplate of T12. Trabeculae are preserved. There is diffuse bone demineralization. Central spinal canal and neural foramina are patent. IMPRESSION: Likely subacute compression fractures at T5 and T8. Mild loss of vertebral body height at T5 and mini mal loss of vertebral body height at T8. No significant retropulsion. Given preservation of trabeculation diffuse bone mineralization. Osteoporotic/insufficiency fractures are favored rather th an pathologic fractures. CODE T Transcribed Date/Time: 02/06/2020 12:10 PM
--- NOTE | 2020-02-06 12:39 | CT ---
EXAM: CT Lumbar Spine W Con DATE: 02/06/2020 12:00 AM INDICATION: Concern for metastatic disease to the lumbar spine; history of back pain COMPARISON: CT the chest, abdomen and pelvis dated December 17, 2019 FINDING: No acute fracture or subluxation is evident. There is diffuse osteopenia. Prominent Schmorl 's node involving the superior aspect of T12 is stable appearing. No appreciable osseous central canal narrowing is present. There is suggested mild broad-based bulges at L3-4 through L5-S1 with mil d bilateral neural foraminal narrowing most pronounced at L4-5 and L5-S1. There are scattered colonic diverticulosis. There are mild vascular calcification involving abdominal pelvic vasculature. IMPRESSION:No suspicious osteolytic or osteoblastic lesion identified. There is diffuse osteopenia. N o acute fracture is seen. Mild lumbar spondylosis.
[2020-02-06] MEDS ORDERED: Iopamidol-370 76% 500 ML 1 ML ONE (15:48)
== END 2020-02-06 10:34 | disposition home or self-care (01) ==
LOC: BICCT 10:33
PROVIDERS: ATTEND Internal Medicine Hematology & Oncology
DX: C34.11 Malignant neoplasm of upper lobe, right bronchus or lung (principal); E03.2 Hypothyroidism due to medicaments and other exogenous substances; R39.12 Poor urinary stream; M54.9 Dorsalgia, unspecified; M47.816 Spondylosis without myelopathy or radiculopathy, lumbar region; M85.80 Other specified disorders of bone density and structure, unspecified site; M81.0 Age-related osteoporosis without current pathological fracture
CPT/HCPCS: 72129; 72132; Q9967

== ENCOUNTER 2020-02-11 08:55 | Outpatient (CLI) | payer MEDICARE, OTHER ==
--- NOTE | 2020-02-11 09:16 | BD ---
EXAM: DEXA bone density examination HISTORY: 64-year-old male with osteoporosis for screening COMPARISON: None FINDINGS: L1--bone mineral density 0.571 g/sq cm; T score -4.6 L2--bone mineral density 0.766 g/sq cm; T score -3.0 L3--bone mineral density 0.749 g/sq cm; T score -3.2 L4--bone mineral density 0.702 g/sq cm; T score -3.5 Total L1-L4--bone mineral density 0.702 g/sq cm; T score -3.5 Left femoral neck--bone mineral density0.549; T score -2.8 Total proximal left femur--bone mineral density 0.936; T score -0.6 IMPRESSION: Osteoporosis.
== END 2020-02-11 08:56 | disposition home or self-care (01) ==
LOC: BICMAMMO 08:55
PROVIDERS: ATTEND Internal Medicine
DX: M81.8 Other osteoporosis without current pathological fracture (principal)
CPT/HCPCS: 77080

== ENCOUNTER 2020-03-18 08:38 | Outpatient (CLI) | payer MEDICARE, OTHER ==
--- NOTE | 2020-03-18 09:56 | CT ---
EXAM: CT chest, abdomen, and pelvis with IV contrast: HISTORY: Lung cancer follow-up evaluation. COMPARISON: 12/17/2019 FINDINGS: CT THORAX: Lungs: The previously described right upper lobe mass is overall similar in size with measurement of 3.7 cm x 3.3 cm with previous measurement of 3.7 cm x 3 cm. Mild interstitial thickening within the upper lobes bilaterally and to a lesser extent in the right lower lobe are again seen and are not sig nificantly changed compared to the prior exam. No new mass or pulmonary nodule is seen within the lungs bilaterally. Pleura: No pleural effusion. Lymph nodes: There is a stable subcarinal lymph node measuring 1 cm in short axis dimension. No addit ional enlarged lymph nodes are seen. Mediastinum: Vascular calcifications are seen in the coronary arteries and involving the thoracic aor ta. Chest wall: No abnormalities CT ABDOMEN AND PELVIS: Liver: Within normal limits. Gallbladder: Surgically absent.\ Pancreas: Within normal limits. Spleen:Stable 1.9 cm hypodense lesion in the superior aspect body of the spleen with closely adjacent subcentimeter hypodense lesion also again seen and stable in size. These lesions were also seen on study on 06/12/2019 and are unchanged. Splenic cysts are favored. . Adrenal glands: Within normal limits. Kidneys: Hypodense cystic lesions are again seen in the midportion of each kidney statistically likel y representing renal cysts. Subcentimeter too small to characterize hypodense lesion is seen in the inferior pole right kidney. Urinary Bladder: The urinary bladder is unremarkable. Reproductive organs: Within normal limits for patient's age. Bowel: Colonic diverticulosis is again present. Loops of small bowel are normal in caliber. Adenopathy:No lymphadenopathy within the abdomen or pelvis. Peritoneum: Minimal nonspecific haziness is seen in the central mesentery unchanged when compared to prior study as well as study on 10/01/2019. Abdominal wall: No abnormalities seen. Osseous structures: There are compression fractures involving the T5, T8, and T9 vertebral bodies wit h sclerosis along the superior endplates of these fractures. Fractures involving the T5 and T8 vertebral bodies were noted on CT thoracic spine on 02/06/2020. However, the fracture involving the T9 vertebral body represents interval change from prior exam. IMPRESSION: 1. Stable right upper lobe mass with stable areas of interstitial thickening within the lungs bilater ally no new mass or pulmonary nodules seen. 2. Interval development of a compression fracture involving the T9 vertebral body with stable tessy soyna fractures of T5 and T8 vertebral bodies again seen. However, there is increased sclerosis involving the fractures. 3. Remainder of the findings in the chest, abdomen, and pelvis are stable.
[2020-03-18] MEDS ORDERED: Iopamidol-370 76% 500 ML 1 ML ONE (10:59)
== END 2020-03-18 08:39 | disposition home or self-care (01) ==
LOC: BICCT 08:38
PROVIDERS: ATTEND Internal Medicine Hematology & Oncology
DX: C34.11 Malignant neoplasm of upper lobe, right bronchus or lung (principal); E03.2 Hypothyroidism due to medicaments and other exogenous substances; R39.12 Poor urinary stream; M81.8 Other osteoporosis without current pathological fracture; R91.8 Other nonspecific abnormal finding of lung field; M48.54XD Collapsed vertebra, not elsewhere classified, thoracic region, subsequent encounter for fracture with routine healing; D73.89 Other diseases of spleen; N28.9 Disorder of kidney and ureter, unspecified; K57.30 Diverticulosis of large intestine without perforation or abscess without bleeding
CPT/HCPCS: 36415; 71260; 74177; 80053; 84443; 85025; Q9967

== ENCOUNTER 2020-09-15 08:53 | Outpatient (CLI) | payer MEDICARE, OTHER ==
[2020-09-15] MEDS ORDERED: Iopamidol-370 76% 500 ML 1 ML ONE (10:22)
--- NOTE | 2020-09-15 10:48 | CT ---
CT OF CHEST PERFORMED WITH CONTRAST ENHANCEMENT: Date: 09/15/2020 HISTORY: Follow-up of lung cancer. COMPARISON: 09/18/2019 exam. 03/18/2020 study. Review is also made of a 12/17/2019 exam. FINDINGS: The right upper lobe lung mass is felt to be essentially stable in size. Measurements of approximatel y 3.3 x 3.7 x 2.5 cm are obtained. The small right-sided hilar nodes are similar in appearance to the previous exam. There has been interval increase in size of the subcarinal nodes. AP dimension of 1.4 cm as compared to 1.0 cm is obtained. There is also a prevascular node seen axial image 35 that jayy ures 9.0 mm on this examination as compared to 3.0 mm on the most recent previous exam. The parenchym al lung changes in the upper lobes are fairly similar to the previous examination. However, now some more ground-glass infiltrative lung changes have developed in both lower lobes, which is a definite p rogression as compared to the most recent prior examination. It has an appearance more similar to the 09/18/2019 study. Visualized liver parenchyma is normal. Hypodensity within the spleen is stable. Right and left adrena l glands are normal. Review of osseous structures reveal compression changes of T5, which are similar to the previous exam . Minimal loss of vertebral body height at T6. Increase in sclerosis of the inferior end plate and ve rtebroplasty changes at T8 and T9 are now present. IMPRESSION: 1. Stable right upper lobe mass. 2. There has been some interval increase in size of the subcarinal lymph nodes and a prevascular nod e as discussed above. 3. The upper lobe parenchymal scarring is relatively similar to the previous examination, but there has been a definite increase in some ground-glass infiltrative lung changes in the lung bases. Appear ance is more similar to the older examination of 09/18/2019. This could indicate an acute infectious process in which COVID pneumonia would have to be a consideration. Other causes of more acute infiltr ates should also be considered. POS: SURINDER
== END 2020-09-15 08:54 | disposition home or self-care (01) ==
LOC: BICCT 08:53
PROVIDERS: ATTEND Internal Medicine Hematology & Oncology
DX: C34.11 Malignant neoplasm of upper lobe, right bronchus or lung (principal); J98.4 Other disorders of lung
CPT/HCPCS: 71260; 82565; Q9967

== ENCOUNTER 2020-10-27 09:07 | Outpatient (CLI) | payer MEDICARE, OTHER ==
[2020-10-27] MEDS ORDERED: Iopamidol-370 76% 500 ML 1 ML ONE (13:19)
== END 2020-10-27 09:08 | disposition home or self-care (01) ==
LOC: BICCT 09:07
PROVIDERS: ATTEND Internal Medicine Hematology & Oncology
DX: C34.11 Malignant neoplasm of upper lobe, right bronchus or lung (principal); M81.8 Other osteoporosis without current pathological fracture; R91.8 Other nonspecific abnormal finding of lung field; R39.12 Poor urinary stream; E03.2 Hypothyroidism due to medicaments and other exogenous substances
CPT/HCPCS: 36415; 71260; 80053; 84443; 85025; Q9967

== ENCOUNTER 2021-01-26 10:08 | Outpatient (CLI) | payer MEDICARE, OTHER ==
[2021-01-26] MEDS ORDERED: Iopamidol-370 76% 500 ML 1 ML ONE (13:45)
== END 2021-01-26 10:09 | disposition home or self-care (01) ==
LOC: BICCT 10:08
PROVIDERS: ATTEND Internal Medicine Hematology & Oncology
DX: C34.11 Malignant neoplasm of upper lobe, right bronchus or lung (principal); J18.9 Pneumonia, unspecified organism
CPT/HCPCS: 36415; 71260; 80053; 84443; 85025; Q9967

== ENCOUNTER 2021-05-18 10:06 | Outpatient (CLI) | payer MEDICARE, OTHER | END 2021-05-18 10:07 | disposition home or self-care (01) | LOC: BICRAD 10:06 | PROVIDERS: ATTEND Family Medicine | DX: R05.9 Cough, unspecified (principal) | CPT/HCPCS: 71046 ==

== ENCOUNTER 2021-06-01 09:46 | Outpatient (CLI) | payer MEDICARE, OTHER ==
[~2021-06-01 09:46] MED LIST changes: -Iopamidol 370 76% 100 ML VIAL ONE; +Iopamidol-370 76% 500 ML 1 ML ONE
== END 2021-06-01 09:47 | disposition home or self-care (01) ==
LOC: BICCT 09:46
PROVIDERS: ATTEND Internal Medicine Hematology & Oncology
DX: C34.90 Malignant neoplasm of unspecified part of unspecified bronchus or lung (principal); J98.4 Other disorders of lung; R59.0 Localized enlarged lymph nodes; K76.89 Other specified diseases of liver; K57.30 Diverticulosis of large intestine without perforation or abscess without bleeding; S22.059A Unspecified fracture of T5-T6 vertebra, initial encounter for closed fracture; E03.2 Hypothyroidism due to medicaments and other exogenous substances; R39.12 Poor urinary stream; M81.8 Other osteoporosis without current pathological fracture; C34.11 Malignant neoplasm of upper lobe, right bronchus or lung
CPT/HCPCS: 71260; 74177; 80053; 82565; 84443; Q9967

== ENCOUNTER 2021-08-24 09:45 | Outpatient (CLI) | payer MEDICARE, OTHER | END 2021-08-24 09:46 | disposition home or self-care (01) | LOC: BICCT 09:45 | PROVIDERS: ATTEND Internal Medicine Hematology & Oncology | DX: C34.11 Malignant neoplasm of upper lobe, right bronchus or lung (principal); E03.2 Hypothyroidism due to medicaments and other exogenous substances; R39.12 Poor urinary stream; M81.8 Other osteoporosis without current pathological fracture; R91.8 Other nonspecific abnormal finding of lung field; R59.0 Localized enlarged lymph nodes | CPT/HCPCS: 71260 ==

== ENCOUNTER 2021-11-16 09:34 | Outpatient (CLI) | payer MEDICARE, OTHER | END 2021-11-16 09:35 | disposition home or self-care (01) | LOC: CT 09:34 | PROVIDERS: ATTEND Internal Medicine Hematology & Oncology | DX: C34.11 Malignant neoplasm of upper lobe, right bronchus or lung (principal); E03.2 Hypothyroidism due to medicaments and other exogenous substances; R39.12 Poor urinary stream; M81.8 Other osteoporosis without current pathological fracture | CPT/HCPCS: 36415; 71260; 80053 ==

== ENCOUNTER 2022-02-08 10:11 | Outpatient (CLI) | payer MEDICARE, OTHER | END 2022-02-08 10:12 | disposition home or self-care (01) | LOC: BICCT 10:11 | PROVIDERS: ATTEND Internal Medicine Hematology & Oncology | DX: C34.11 Malignant neoplasm of upper lobe, right bronchus or lung (principal); J84.10 Pulmonary fibrosis, unspecified | CPT/HCPCS: 71260; 80053; 82565; 84443 ==

== ENCOUNTER 2022-03-02 22:08 | Emergency (ER) | payer MEDICARE, OTHER ==
[2022-03-02] MEDS ORDERED: Ondansetron PF 4 MG/2 ML Vial ONE (23:12)
[2022-03-02] MEDS ORDERED: Ketorolac Tromethamine 30 MG/ML VIAL ONE (23:20)
[2022-03-03 00:10] LABS: #Lymphocytes 0.8 thou/uL (1.20-3.40); #Monocytes 0.5 thou/uL (0.11-0.59); #Neutrophils 10.4 thou/uL (1.40-6.50); %Basophils 0.2 % (0.0-1.0); %Eosinophils 0.3 % (0.0-10.0); %Lymphocytes 6.5 % (21.0-51.0); %Monocytes 4.1 % (0.0-10.0); Hemoglobin 16.4 g/dL (14.0-18.0); Mean Corpuscular HGB CONC 33.2 g/dL (32.0-36.0); Mean Corpuscular Hemoglobin 29.7 pg (27.0-31.0); Mean Corpuscular Volume 89.4 fL (78.0-98.0); Mean Platelet Volume 6.9 fL (7.4-10.4); Platelet Count 351 thou/uL (130-400); RBC Distribution Width 11.5 % (11.5-14.5); Red Blood Cell (RBC) Count 5.51 mill/uL (4.70-6.10); White Blood Cell (WBC) Count 11.7 thou/uL (4.8-10.8)
[2022-03-03 00:16] LABS: Bacteria/HPF None Seen HPF (None Seen); Bilirubin Negative (Negative); Blood, Urine 3+ (Negative); Clarity Clear (Clear); Glucose, Urine (Dipstick) Normal (Negative); Ketone, Urine Trace mg/dL (Negative); Leukocyte Negative Leu/uL (Negative); Nitrite Negative (Negative); Protein, Urine (Dipstick) 20 mg/dL (Neg-Trace); RBC/HPF Greater than 50 HPF (0-3); Specific Gravity, Urine 1.024 (1.002-1.036); Squamous Epithelial None Seen HPF (0-3); Urobilinogen Normal mg/dL (Less than 2); WBC/HPF 0-3 HPF (0-3); pH, Urine 5.5 (5.0-9.0)
[2022-03-03 00:37] LABS: ALT (SGPT) 13 U/L (8-55); AST (SGOT) 13 U/L (5-34); Albumin 4.2 g/dL (3.4-4.8); Alkaline Phosphatase 104 U/L (40-110); Anion Gap 17 mmol/L (10-20); BUN (Urea Nitrogen) 15 mg/dL (8.4-25.7); Bilirubin, Total 0.4 mg/dL (0.2-1.2); Calc. Creatinine Clearance 0 mL/min (70-130); Calcium 9.7 mg/dL (7.8-10.44); Carbon Dioxide 19 mmol/L (23-31); Chloride 109 mmol/L (98-107); Estimated GFR 52; Globulin 3.4 g/dL (2.4-3.5); Glucose 152 mg/dL (80-115); Potassium 3.6 mmol/L (3.5-5.1); Protein, Total 7.6 g/dL (5.8-8.1); Sodium 141 mmol/L (136-145)
== END 2022-03-02 23:17 | disposition home or self-care (01) ==
LOC: ERS 22:08
DX: N13.2 Hydronephrosis with renal and ureteral calculous obstruction (principal)
CPT/HCPCS: 36415; 74176; 80053; 81003; 81015; 85025; 87086; J1885; J2405

== ENCOUNTER 2022-07-26 07:57 | Outpatient (CLI) | payer MEDICARE, OTHER ==
[2022-07-26] MEDS ORDERED: Iopamidol-370 76% 500 ML 1 ML ONE (11:16)
== END 2022-07-26 07:58 | disposition home or self-care (01) ==
LOC: BICCT 07:57
PROVIDERS: ATTEND Internal Medicine Hematology & Oncology
DX: C34.11 Malignant neoplasm of upper lobe, right bronchus or lung (principal); J98.4 Other disorders of lung
CPT/HCPCS: 36415; 71260; 80053; 82565; 84443

== ENCOUNTER 2022-10-18 09:54 | Outpatient (CLI) | payer MEDICARE, OTHER | END 2022-10-18 09:55 | disposition home or self-care (01) | LOC: BICCT 09:54 | PROVIDERS: ATTEND Internal Medicine Hematology & Oncology | DX: C34.11 Malignant neoplasm of upper lobe, right bronchus or lung (principal) | CPT/HCPCS: 71260; 82565; Q9967 ==

== ENCOUNTER 2023-05-17 11:45 | Outpatient (CLI) | payer MEDICARE, OTHER | END 2023-05-17 11:46 | disposition home or self-care (01) | LOC: PET 11:45 | PROVIDERS: ATTEND Internal Medicine Hematology & Oncology | DX: C34.11 Malignant neoplasm of upper lobe, right bronchus or lung (principal) | CPT/HCPCS: 78815; A9552 ==

== ENCOUNTER → 2024-02-08 | Outpatient (CLI) | payer MEDICARE, OTHER | LOC: PET 09:30 | PROVIDERS: ATTEND Internal Medicine Hematology & Oncology | DX: C34.11 Malignant neoplasm of upper lobe, right bronchus or lung (principal); J70.0 Acute pulmonary manifestations due to radiation | CPT/HCPCS: 78815; A9552 ==

== ENCOUNTER 2024-05-16 10:15 | Outpatient (CLI) | payer MEDICARE, OTHER | END 2024-05-16 10:16 | disposition home or self-care (01) | LOC: PET 10:15 | PROVIDERS: ATTEND Internal Medicine | DX: C34.11 Malignant neoplasm of upper lobe, right bronchus or lung (principal) | CPT/HCPCS: 78815; A9552 ==

== ENCOUNTER 2024-06-12 08:06 | Outpatient (CLI) | payer MEDICARE, OTHER | END 2024-06-12 08:07 | disposition home or self-care (01) | LOC: LABBT 08:06 | PROVIDERS: ATTEND Student in an Organized Health Care Education/Training Program | DX: Z01.818 Encounter for other preprocedural examination (principal); C34.92 Malignant neoplasm of unspecified part of left bronchus or lung | CPT/HCPCS: 71046; 93005; 93010 ==

== ENCOUNTER 2024-06-14 06:37 | Inpatient (IN) | payer MEDICARE, OTHER ==
[2024-06-12 09:37] LABS: #Basophils 0.04 10x3/uL (0.0-0.2); %Basophils 0.6 % (0.0-1.0); %Eosinophils 2.3 % (0.0-10.0); %Lymphocytes 15.1 % (21.0-51.0); %Monocytes 10.1 % (0.0-10.0); %Neutrophils 71.5 % (42.0-75.0); Hematocrit 46.9 % (42.0-52.0); Hemoglobin 15.3 g/dL (14.0-18.0); Mean Corpuscular HGB CONC 32.6 g/dL (32.0-36.0); Mean Corpuscular Hemoglobin 28.3 pg (27.0-31.0); Mean Corpuscular Volume 86.9 fL (78.0-98.0); Mean Platelet Volume 9.2 fL (7.4-10.4); Platelet Count 324 10x3/uL (130-400); RBC Distribution Width 13.1 % (11.5-14.5)
[2024-06-12 09:50] LABS: Anion Gap 14 mmol/L (10-20); BUN (Urea Nitrogen) 16 mg/dL (8.4-25.7); Calc. Creatinine Clearance 0 mL/min (70-130); Calcium 9.8 mg/dL (7.8-10.44); Carbon Dioxide 23 mmol/L (23-31); Chloride 106 mmol/L (98-107); Estimated GFR 79; Glucose 107 mg/dL (80-115); Potassium 3.9 mmol/L (3.5-5.1); Sodium 139 mmol/L (136-145)
[2024-06-14] MEDS ORDERED: Bupivacaine PF 0.5% 30 ML VIAL ONE (06:49)
[2024-06-14] MEDS ORDERED: EPINEPHrine 1 MG/ML VIAL ONE (06:49)
[2024-06-14] MEDS ORDERED: CEFAZOLIN 2 GM VIAL ONE (07:23)
[2024-06-14] MEDS ORDERED: fentaNYL PF 100 MCG/2 ML SYRINGE ONE ×3 (07:27→09:48)
[2024-06-14] MEDS ORDERED: Lidocaine 2% PF 5 ML VIAL ONE (07:28)
[2024-06-14] MEDS ORDERED: PROPOFOL 20 ML ONE (07:28)
[2024-06-14] MEDS ORDERED: ePHEDrine Sulfate 50 MG/10 ML VIAL ONE (08:01)
[2024-06-14] MEDS ORDERED: Dexamethasone 20 MG/5 ML VIAL ONE (08:45)
[2024-06-14] MEDS ORDERED: Ondansetron PF 4 MG/2 ML Vial ONE (08:45)
[2024-06-14] MEDS ORDERED: Rocuronium Bromide 10 MG/ML (10ML VIAL) ONE (09:01)
[2024-06-14] MEDS ORDERED: SUGAMMADEX SODIUM 200 MG/2 ML VIAL ONE (09:13)
[2024-06-14] MEDS ORDERED: Milk Of Magnesia 30 ML UDCUP PO PRN (09:31)
[2024-06-14] MEDS ORDERED: Ondansetron PF 4 MG/2 ML Vial IVP PRN (09:31)
[2024-06-14] MEDS ORDERED: Mineral Oil ENEMA PR PRN (09:31)
[2024-06-14] MEDS ORDERED: Bisacodyl 10 MG SUPP PR PRN (09:31)
[2024-06-14 10:23] LABS: #Basophils 0.03 10x3/uL (0.0-0.2); %Basophils 0.3 % (0.0-1.0); %Eosinophils 0.9 % (0.0-10.0); %Lymphocytes 10.2 % (21.0-51.0); %Neutrophils 84.9 % (42.0-75.0); Hematocrit 41.1 % (42.0-52.0); Hemoglobin 13.6 g/dL (14.0-18.0); Mean Corpuscular HGB CONC 33.1 g/dL (32.0-36.0); Mean Corpuscular Hemoglobin 28.5 pg (27.0-31.0); Mean Corpuscular Volume 86.2 fL (78.0-98.0); Mean Platelet Volume 8.8 fL (7.4-10.4); Platelet Count 293 10x3/uL (130-400); Red Blood Cell (RBC) Count 4.77 mill/uL (4.70-6.10)
[2024-06-14 10:44] LABS: Anion Gap 14 mmol/L (10-20); BUN (Urea Nitrogen) 13 mg/dL (8.4-25.7); Calc. Creatinine Clearance 67 mL/min (70-130); Calcium 8.1 mg/dL (7.8-10.44); Carbon Dioxide 16 mmol/L (23-31); Chloride 111 mmol/L (98-107); Estimated GFR 89; Glucose 204 mg/dL (80-115); Potassium 3.5 mmol/L (3.5-5.1); Sodium 137 mmol/L (136-145)
[2024-06-14] MEDS ORDERED: Ipratropium/Albuterol 3 ML NEB ONE (13:04)
[2024-06-14] MEDS ORDERED: Acetaminophen 325 MG TAB ONE (13:04)
[2024-06-14] MEDS: Ipratropium/Albuterol 3 ML NEB NEB SCH (13:08)
[2024-06-14] MEDS: Acetaminophen 325 MG TAB PO SCH (13:09)
[2024-06-14 15:18] VITALS: BMI 22.4
[2024-06-14] MEDS: D5 0.9% NS w/ 20 mEq KCl 1,000 ML IV SCH (15:57)
[2024-06-14] MEDS: Methocarbamol 500 MG TAB PO SCH (15:57)
[2024-06-14] MEDS: CEFAZOLIN 2 GM in Sodium Chloride 0.9% 100 ML IVPB SCH (15:58)
[2024-06-14] MEDS: HYDROcodone/Acetaminophen 5/325 mg Tablet PO PRN (17:55)
[2024-06-14] MEDS: Gabapentin 300 MG CAP PO SCH (20:18)
[2024-06-15 05:35] LABS: #Basophils Less than 0.03 10x3/uL (0.0-0.2); #Eosinophils Less than 0.03 10x3/uL (0.0-0.7); %Basophils 0.2 % (0.0-1.0); %Eosinophils 0.2 % (0.0-10.0); %Lymphocytes 8.5 % (21.0-51.0); %Monocytes 9.1 % (0.0-10.0); %Neutrophils 81.5 % (42.0-75.0); Hematocrit 39.9 % (42.0-52.0); Hemoglobin 13.1 g/dL (14.0-18.0); Mean Corpuscular HGB CONC 32.8 g/dL (32.0-36.0); Mean Corpuscular Hemoglobin 28.2 pg (27.0-31.0); Mean Corpuscular Volume 85.8 fL (78.0-98.0); Mean Platelet Volume 8.9 fL (7.4-10.4); Platelet Count 280 10x3/uL (130-400); RBC Distribution Width 13.2 % (11.5-14.5); Red Blood Cell (RBC) Count 4.65 mill/uL (4.70-6.10)
[2024-06-15 05:52] LABS: Anion Gap 11 mmol/L (10-20); BUN (Urea Nitrogen) 8 mg/dL (8.4-25.7); Calc. Creatinine Clearance 71 mL/min (70-130); Calcium 8.6 mg/dL (7.8-10.44); Carbon Dioxide 19 mmol/L (23-31); Chloride 114 mmol/L (98-107); Estimated GFR 91; Glucose 118 mg/dL (80-115); Potassium 4.1 mmol/L (3.5-5.1); Sodium 140 mmol/L (136-145)
[2024-06-15] MEDS: HYDROcodone/Acetaminophen 5/325 mg Tablet PO PRN (07:45)
[2024-06-15] MEDS: Lidocaine 4% Patch TD SCH (09:55)
[2024-06-15 10:49] VITALS: BMI 22.4
[2024-06-15 15:53] VITALS: BP 124/71; TEMP 98.1
[2024-06-15] MEDS ORDERED: Transdermal Patch Removal TOP SCH (21:00)
== END 2024-06-15 18:20 | disposition home or self-care (01) | DRG 165 ==
LOC: SDC 06:37 → 2NO 15:18
PROVIDERS: ADMIT Student in an Organized Health Care Education/Training Program; ATTEND Student in an Organized Health Care Education/Training Program
PROC: 0BBJ4ZZ Excision of Left Lower Lung Lobe, Percutaneous Endoscopic Approach (ICD-10-PCS; principal; 2024-06-14)
PROC: 8E0W4CZ Robotic Assisted Procedure of Trunk Region, Percutaneous Endoscopic Approach (ICD-10-PCS; 2024-06-14)
DX: C34.32 Malignant neoplasm of lower lobe, left bronchus or lung (principal)
CPT/HCPCS: 36415; 71045; 71046; 80048; 85025; 86850; 86900; 86901; 88307; 88331; 88332; 93005; 94640; C1776; C2613; J0171; J0665; J1100; J1642; J2405; J2704; J3480; J7620; S2900

== ENCOUNTER 2024-07-02 13:30 | Outpatient (CLI) | payer MEDICARE, OTHER | END 2024-07-02 13:31 | disposition home or self-care (01) | LOC: RAD 13:30 | PROVIDERS: ATTEND Student in an Organized Health Care Education/Training Program | DX: C34.92 Malignant neoplasm of unspecified part of left bronchus or lung (principal); Z98.890 Other specified postprocedural states | CPT/HCPCS: 71046 ==

== ENCOUNTER 2024-09-07 12:30 | Outpatient (CLI) | payer MEDICARE, OTHER | END 2024-09-07 12:31 | disposition home or self-care (01) | LOC: PET 12:30 | PROVIDERS: ATTEND Internal Medicine Hematology & Oncology | DX: C34.11 Malignant neoplasm of upper lobe, right bronchus or lung (principal) | CPT/HCPCS: 78815; A9552 ==

== ENCOUNTER 2025-05-20 08:24 | Outpatient (CLI) | payer MEDICARE, OTHER ==
[2025-05-20 08:48] LABS: Estimated GFR - POC 54.0
[2025-05-20] MEDS ORDERED: Iopamidol 370 76% 100 ML VIAL ONE (10:18)
== END 2025-05-20 08:25 | disposition home or self-care (01) ==
LOC: CT 08:24
PROVIDERS: ATTEND Internal Medicine Hematology & Oncology
DX: C34.11 Malignant neoplasm of upper lobe, right bronchus or lung (principal); E03.2 Hypothyroidism due to medicaments and other exogenous substances; M81.8 Other osteoporosis without current pathological fracture; R97.1 Elevated cancer antigen 125 [CA 125]; R39.12 Poor urinary stream; Z90.49 Acquired absence of other specified parts of digestive tract
CPT/HCPCS: 36415; 71260; 82565; Q9967

== ENCOUNTER 2025-08-13 07:32 | Outpatient (CLI) | payer MEDICARE, OTHER ==
[2025-08-13 08:00] LABS: Estimated GFR - POC 53.0
== END 2025-08-13 07:33 | disposition home or self-care (01) ==
LOC: CT 07:32
PROVIDERS: ATTEND Internal Medicine Hematology & Oncology
DX: C34.11 Malignant neoplasm of upper lobe, right bronchus or lung (principal); E03.2 Hypothyroidism due to medicaments and other exogenous substances; R39.12 Poor urinary stream; M81.8 Other osteoporosis without current pathological fracture; R97.1 Elevated cancer antigen 125 [CA 125]; I25.10 Atherosclerotic heart disease of native coronary artery without angina pectoris
CPT/HCPCS: 36415; 71260; 82565